=== PATIENT | male | born 1940 | race Caucasian/White ===

== ENCOUNTER 2016-05-15 12:13 | Observation (INO) | payer BC, OTHER ==
[~2016-05-15] VITALS: Ht 167.6 cm; Wt 74.5 kg
[2016-05-15] VITALS (8 sets, daily range): BP systolic 135–155; BP diastolic 58–69; PULSE 45–57; TEMP 36.6–36.9; O2SAT 93–96; BMI 26.5
[~2016-05-15 12:13] MED LIST: AMLO-114 PO; ASPI81TA28 PO; ATEN-173 PO; CHOL100010 PO; CLOP1TAB15 PO; GLIP-197 PO; HYDR25TA4 PO; LOSA100T65 PO; NRN600 PO; ROPI2TAB6 PO; SIMV20TA2 PO
[2016-05-15] MEDS ORDERED: SODIUM CHLORIDE 0.9% 500ML 500 ML IV STA (13:05)
[2016-05-15] MEDS ORDERED: SODIUM CHLORIDE 0.9% 1000ML 1,000 ML IV STA (13:05)
--- NOTE | 2016-05-15 13:07 | EMERGENCY ROOM VISIT NOTE ---
History Report prepared by Luis: Ricardo Cotton Under the Supervision of: Dr. Avril Marroquin M.D. First contact with patient: 12:44 Chief Complaint: DIZZY Stated Complaint: COLD, DIZZY Nursing Triage Summary: Dizzy x one week, hallucinating 2-3 days now per daughter. States gets a headache off and on. Denies injury/fall. History of Present Illness The patient is a 75 year old male who presents to the Emergency Room with complaints of recurrent visual hallucinations for the past 2-3 days. The patient cannot recall specifically what he has been seeing. His family notes that he has been reaching out and trying to grab objects that are not really there. The patient has had cough and cold symptoms for one week. He has also been experiencing intermittent dizziness, nausea, and frontal headaches this week. He denies blurry vision, chest pain, vomiting. He has been having regular bowel movements and has not had any significant weight loss. He has not been drinking much water. He has not started any new medications. As per his sister, the patient's stayed home because she is not feeling well. She also notes that the patient has appeared to have a lot less energy than baseline.He has a history of neuropathy and hypertension. Denies any history of cancer. The patient has never seen a psychiatrist. He does not drink very much alcohol. The patient uses chewing tobacco. The patient follows up with Dr. Malik, who he hasn't seen in the past six months. Source of History: patient, family Onset: 2-3 days Position: other (visual) Quality: other (hallucinations) Timing: other (recurrent) Associated Symptoms: + headache, + nausea, No chest pain, No vomiting Review of Systems See HPI for pertinent positives & negatives. A total of 10 systems reviewed and were otherwise negative. Past Medical & Surgical Medical Problems: (1) Aortic stenosis (2) CAD (coronary artery disease) (3) CKD (chronic kidney disease), stage IV (4) DM type 2 (diabetes mellitus, type 2) (5) Dyslipidemia (6) GERD (gastroesophageal reflux disease) (7) HTN (hypertension) Surgical Problems: (1) History of back surgery (2) History of carotid endarterectomy (3) History of cholecystectomy (4) History of inguinal hernia repair (5) History of rotator cuff surgery (6) History of tonsillectomy and adenoidectomy Family History No pertinent family history Social History Smoking Status: Former Smoker Marital Status: Housing Status: lives with family Current/Historical Medications Scheduled Allopurinol (Zyloprim), 1 TAB PO DAILY Amlodipine (Norvasc), 10 MG PO QAM Amoxicillin & Pot Clavulanate (Augmentin 875-125 mg), 875 MG PO BID Aspirin (Aspirin Ec), 81 MG PO QAM Cholecalciferol (Vitamin D), 1,000 INTER.UNIT PO DAILY Clopidogrel (Plavix), 75 MG PO QAM Fluticasone Propionate (Nasal) (Flonase Allergy Relief), 2 PUFFS INTNAS BID Gabapentin (Gabapentin), 2 TABS PO TID Glipizide (Glipizide Er), 5 MG PO QAM Hydrochlorothiazide (Hctz), 12.5 MG PO QD@08 Isosorbide Mononitrate (Isosorbide Mononitrate ER), 60 MG PO QAM Lactobacillus Acidophilus (Floranex), 1 TAB PO TID Losartan Potassium (Cozaar), 100 MG PO QAM Omeprazole (Omeprazole), 1 TAB PO DAILY Ropinirole (Requip), 2 MG PO HS Simvastatin (Zocor), 20 MG PO QAM Scheduled PRN Oxycodone Ir (Roxicodone Ir), 5 MG PO Q6H PRN for Pain Allergies Coded Allergies: No Known Allergies (Unverified , 05/15/16) Physical Exam Vital Signs Date Time Temp Pulse Resp B/P Pulse Ox O2 Delivery O2 Flow Rate FiO2 05/15/16 14:18 44 18 171/64 96 Room Air 05/15/16 13:37 41 16 140/64 97 Room Air 05/15/16 12:51 47 05/15/16 12:29 36.2 53 18 115/75 94 Room Air Physical Exam Vital signs reviewed. General: Well-appearing male, in no significant distress. HEENT: No scleral icterus, PERRLA, neck supple. Atraumatic. Cardiovascular: Regular rate and rhythm, no extra sounds. Pulmonary: Clear to auscultation bilaterally, normal work of breathing. Abdomen: Soft, nontender, nondistended, positive bowel sounds. Musculoskeletal: Atraumatic, no peripheral edema. Neurologic: Patient awake alert and oriented x 3, full strength in all 4 extremities. Cranial nerves 2 through 12 grossly intact. Skin: Warm, dry, no rash Medical Decision & Procedures ER Provider Diagnostic Interpretation: X-ray results as stated below per my interpretation and radiologist interpretation. Other radiology results as stated below per my review and radiologist interpretation: CHEST ONE VIEW PORTABLE CLINICAL HISTORY: Acute change in mental status. Hallucinations. COMPARISON STUDY: 12/23/2013 FINDINGS: There are postsurgical changes of a midline sternotomy. The cardiac and mediastinal contours remain stable. There is no failure. There is no focal pulmonary consolidation. There are no pleural effusions.[ IMPRESSION: No active disease in the chest. Electronically signed by: Asif Lu M.D. 05/15/2016 1:30 PM Dictated Date/Time: 05/15/2016 1:[address] SCAN OF THE BRAIN WITHOUT IV CONTRAST CLINICAL HISTORY: Change in mental status. Hallucinations. COMPARISON STUDY: No priors. TECHNIQUE: Unenhanced axial CT scan of the brain is performed from the vertex to the skull base. CT DOSE: 614.27 mGy.cm FINDINGS: Brain parenchyma: There are age-related involutional changes noting moderate patchy subcortical and periventricular microangiopathic change. There is no hemorrhage, mass effect, or evidence of acute territorial ischemia by CT criteria. Maxwell-white matter is preserved. No extra-axial fluid collection is seen. Ventricles, sulci, cisterns: Prominent secondary to involutional change. Intracranial vasculature: There is atherosclerotic calcification of the cavernous carotid and vertebral arteries. Calvarium: Unremarkable. Sinuses and mastoids: There is moderate mucosal thickening with large air-fluid levels in the maxillary antra. Moderate mucosal thickening is also seen throughout the ethmoid sinuses and in the left sphenoid sinus. Mild mucosal thickening is present within the frontal and right sphenoid sinuses. The mastoid air cells are well pneumatized. Orbits: The bony orbits are grossly intact. IMPRESSION: 1. There is no hemorrhage, mass effect, or evidence of acute territorial ischemia by CT criteria. 2. Pansinusitis as above. Electronically signed by: Jose Prieto M.D. 05/15/2016 2:17 PM Dictated Date/Time: 05/15/2016 2:15 PM Laboratory Results 05/15/16 13:45 Red Blood Count 4.53, Mean Corpuscular Volume 87.0, Mean Corpuscular Hemoglobin 29.1, Mean Corpuscular Hemoglobin Concent 33.5, Mean Platelet Volume 10.0, Neutrophils (%) (Auto) 64.3, Lymphocytes (%) (Auto) 23.9, Monocytes (%) (Auto) 8.4, Eosinophils (%) (Auto) 2.4, Basophils (%) (Auto) 0.5, Neutrophils # (Auto) 4.84, Lymphocytes # (Auto) 1.80, Monocytes # (Auto) 0.63, Eosinophils # (Auto) 0.18, Basophils # (Auto) 0.04 05/15/16 13:45 Test 05/15/16 13:06 05/15/16 13:45 Urine Color YELLOW Urine Appearance CLEAR (CLEAR) Urine pH 6.0 (4.5-7.5) Urine Specific [place] 1.007 (1.000-1.030) Urine Protein TRACE (NEG) Urine Glucose (UA) NEG (NEG) Urine Ketones NEG (NEG) Urine Occult Blood NEG (NEG) Urine Nitrite NEG (NEG) Urine Bilirubin NEG (NEG) Urine Urobilinogen NEG (NEG) Urine Leukocyte Esterase NEG (NEG) Urine WBC (Auto) 0 /hpf (0-5) Urine RBC (Auto) 0-4 /hpf (0-4) Urine Hyaline Casts (Auto) 0 /lpf (0-5) Urine Epithelial Cells (Auto) 0-5 /lpf (0-5) Urine Bacteria (Auto) NEG (NEG) White Blood Count 7.53 K/uL (4.8-10.8) Red Blood Count 4.53 M/uL (4.7-6.1) Hemoglobin 13.2 g/dL (14.0-18.0) Hematocrit 39.4 % (42-52) Mean Corpuscular Volume 87.0 fL (80-100) Mean Corpuscular Hemoglobin 29.1 pg (25-34) Mean Corpuscular Hemoglobin Concent 33.5 g/dl (32-36) Platelet Count 188 K/uL (130-400) Mean Platelet Volume 10.0 fL (7.4-10.4) Neutrophils (%) (Auto) 64.3 % Lymphocytes (%) (Auto) 23.9 % Monocytes (%) (Auto) 8.4 % Eosinophils (%) (Auto) 2.4 % Basophils (%) (Auto) 0.5 % Neutrophils # (Auto) 4.84 K/uL (1.4-6.5) Lymphocytes # (Auto) 1.80 K/uL (1.2-3.4) Monocytes # (Auto) 0.63 K/uL (0.11-0.59) Eosinophils # (Auto) 0.18 K/uL (0-0.5) Basophils # (Auto) 0.04 K/uL (0-0.2) RDW Standard Deviation 43.8 fL (36.4-46.3) RDW Coefficient of Variation 13.8 % (11.5-14.5) Immature Granulocyte % (Auto) 0.5 % Immature Granulocyte # (Auto) 0.04 K/uL (0.00-0.02) Anion Gap 10.0 mmol/L (3-11) Est Creatinine Clear Calc Drug Dose 25.0 ml/min Estimated GFR () 31.0 Estimated GFR (Non- 26.8 BUN/Creatinine Ratio 19.1 (10-20) Calcium Level 9.1 mg/dl (8.5-10.1) Magnesium Level 2.1 mg/dl (1.8-2.4) Total Bilirubin 0.5 mg/dl (0.2-1) Direct Bilirubin < 0.1 mg/dl (0-0.2) Aspartate Amino Transf (AST/SGOT) 16 U/L (15-37) Alanine Aminotransferase (ALT/SGPT) 21 U/L (12-78) Alkaline Phosphatase 83 U/L (45-117) Ammonia 22.0 umol/L (11-32) Total Protein 7.0 gm/dl (6.4-8.2) Albumin 3.5 gm/dl (3.4-5.0) Thyroid Stimulating Hormone (TSH) 0.276 uIu/ml (0.300-4.500) Free Thyroxine 1.06 ng/dl (0.80-1.60) Free Triiodothyronine 2.64 pg/ml (2.30-4.20) Laboratory results per my review. Medications Administered Medications (Trade) Dose Ordered Sig/Gato Route Start Time Stop Time Status Last Admin Dose Admin Sodium Chloride 500 ml @ 999 mls/hr Q31M STAT IV 05/15/16 13:05 05/15/16 13:35 DC 05/15/16 14:01 999 MLS/HR Sodium Chloride (Nss 1000ml) 1,000 ml @ 125 mls/hr Q8H STAT IV 05/15/16 13:05 05/15/16 16:51 DC 05/15/16 14:02 125 MLS/HR Piperacillin Sod/ Tazobactam Sod (Zosyn Iv) 4.5 gm NOW STAT IV 05/15/16 14:40 05/15/16 14:42 DC 05/15/16 14:54 4.5 GM ECG Indication: altered mental status Rate (beats per minute): 44 Rhythm: sinus rhythm Findings: 1st degree AV block, RBBB, no acute ischemic change, no ectopy ED Course 1258: Past medical records reviewed. The patient was evaluated in room A10. A complete history and physical examination was performed. 1305: NSS 1000 ml @ 125 mls/hr, NSS 500 ml @ 999 mls/hr. 1440: Zosyn 4.5 gm IV. 1440: Discussed the case with Jolie Mares PA-C, [facility]. The patient will be evaluated. Medical Decision Differential diagnosis: Etiologies such as metabolic, infection, hypoglycemia, electrolyte abnormalities , cardiac sources, intracerebral event, toxicologic, neurologic, as well as others were entertained. This pt was evaluated and appeared to be in no distress. IV access was obtained and lab work was drawn. Pt was hydrated with NSS. CT scan head reveals pansinusitis, no IC abnl. Pt was medicated with IV Zosyn. CXR is negative. Lab work reveals a normal WBC and pt is afebrile. Creat is 2.3. I do not believe the pt is suffering from meningitis. Pt will be evaluated by the hospitalist for further managment. Pt and family are aware of the plan and agree. Consults Time Called: 1430 Consulting Physician: Jolie Mares PA-C, [facility]. Returned Call: [phone]: Discussed the case with Jolie Mares PA-C, [facility]. The patient will be evaluated. Impression Primary Impression: Sinusitis Additional Impression: Hallucinations Scribe Attestation The scribe's documentation has been prepared under my direction and personally reviewed by me in its entirety. I confirm that the note above accurately reflects all work, treatment, procedures, and medical decision making performed by me. Departure Information Dispostion Being Evaluated By Hospitalist Prescriptions Lactobacillus Acidophilus (Floranex) 1 Tab Tab 1 TAB PO TID, #21 TAB Prov: Jonny Arzola MD 05/18/16 Hydrochlorothiazide (HCTZ) 12.5 Mg Cap 12.5 MG PO QD@08, #30 TAB Prov: Jonny Arzola MD 05/18/16 Fluticasone Propionate (Nasal) (Flonase Allergy Relief) 50 Mcg/Act Spr 2 PUFFS INTNAS BID, #1 Prov: Jonny Arzola MD 05/18/16 Amoxicillin & Pot Clavulanate (Augmentin 875-125 mg) 1 Tab Tab 875 MG PO BID, #14 TAB Prov: Jonny Arzola MD 05/18/16 Isosorbide Mononitrate (Isosorbide Mononitrate ER) 60 Mg Tab 60 MG PO QAM, #90 TAB Prov: Jonny Arzola MD 05/18/16 Referrals Angel Gonzalez M.D. (PCP) Patient Instructions My [facility] Problem Qualifiers Primary Impression: Sinusitis Sinusitis location: pansinusitis Chronicity: acute Recurrence: not specified as recurrent Qualified Codes: J01.40 - Acute pansinusitis, unspecified
[2016-05-15] MEDS ORDERED: CHOL100010 PO (13:28)
--- NOTE | 2016-05-15 13:31 | DIAGNOSTIC IMAGING REPORT ---
CHEST ONE VIEW PORTABLE CLINICAL HISTORY: Acute change in mental status. Hallucinations. COMPARISON STUDY: 12/23/2013 FINDINGS: There are postsurgical changes of a midline sternotomy. The cardiac and mediastinal contours remain stable. There is no failure. There is no focal pulmonary consolidation. There are no pleural effusions.[ IMPRESSION: No active disease in the chest. Electronically signed by: Asif Lu M.D. 05/15/2016 1:30 PM Dictated Date/Time: 05/15/2016 1:29 PM
[2016-05-15 14:01] LABS: BASO % 0.5 %; BASO ABS # 0.04 K/uL (0-0.2); COMPLETE YES; EOS % 2.4 %; HEMATOCRIT 39.4 % (42-52); IG% 0.5 %; LYMPH % 23.9 %; MEAN CORPUSCULAR HEMOGLOBIN 29.1 pg (25-34); MEAN CORPUSCULAR HGB CONC 33.5 g/dl (32-36); MONO % 8.4 %; NEUT % 64.3 %; PLATELET COUNT 188 K/uL (130-400); RED BLOOD COUNT 4.53 M/uL (4.7-6.1); WHITE BLOOD COUNT 7.53 K/uL (4.8-10.8)
--- NOTE | 2016-05-15 14:18 | DIAGNOSTIC IMAGING REPORT ---
CT SCAN OF THE BRAIN WITHOUT IV CONTRAST CLINICAL HISTORY: Change in mental status. Hallucinations. COMPARISON STUDY: No priors. TECHNIQUE: Unenhanced axial CT scan of the brain is performed from the vertex to the skull base. CT DOSE: 614.27 mGy.cm FINDINGS: Brain parenchyma: There are age-related involutional changes noting moderate patchy subcortical and periventricular microangiopathic change. There is no hemorrhage, mass effect, or evidence of acute territorial ischemia by CT criteria. Maxwell-white matter is preserved. No extra-axial fluid collection is seen. Ventricles, sulci, cisterns: Prominent secondary to involutional change. Intracranial vasculature: There is atherosclerotic calcification of the cavernous carotid and vertebral arteries. Calvarium: Unremarkable. Sinuses and mastoids: There is moderate mucosal thickening with large air-fluid levels in the maxillary antra. Moderate mucosal thickening is also seen throughout the ethmoid sinuses and in the left sphenoid sinus. Mild mucosal thickening is present within the frontal and right sphenoid sinuses. The mastoid air cells are well pneumatized. Orbits: The bony orbits are grossly intact. IMPRESSION: 1. There is no hemorrhage, mass effect, or evidence of acute territorial ischemia by CT criteria. 2. Pansinusitis as above. Electronically signed by: Jose Prieto M.D. 05/15/2016 2:17 PM Dictated Date/Time: 05/15/2016 2:15 PM
[2016-05-15 14:24] LABS: ALT/SGPT 21 U/L (12-78); AST/SGOT 16 U/L (15-37); BLOOD UREA NITROGEN 44 mg/dl (7-18); BUN/CREATININE RATIO 19.1 (10-20); CALCIUM 9.1 mg/dl (8.5-10.1); CARBON DIOXIDE 23 mmol/L (21-32); CHLORIDE 108 mmol/L (98-107); GLUCOSE 69 mg/dl (70-99); MAGNESIUM 2.1 mg/dl (1.8-2.4); POTASSIUM 4.5 mmol/L (3.5-5.1); SODIUM 141 mmol/L (136-145)
[2016-05-15 14:33] LABS: ALKALINE PHOSPHATASE 83 U/L (45-117); THYROID STIMULATING HORMONE 0.276 uIu/ml (0.300-4.500)
[2016-05-15] MEDS ORDERED: PIPERACILLIN/TAZOBACTAM 4.5 GM/100ML D5W IV STA (14:40)
[2016-05-15 15:37] LABS: URINE APPEARANCE CLEAR (CLEAR); URINE BILIRUBIN NEG (NEG); URINE COLOR YELLOW; URINE EPITHELIAL CELL AUTO 0-5 /lpf (0-5); URINE NITRITE NEG (NEG); URINE SPECIFIC GRAVITY 1.007 (1.000-1.030); UROBILINOGEN NEG (NEG); ZZUR CULT IF INDIC CLEAN CATCH NO
[2016-05-15 15:39] LABS: MANUAL MICROSCOPIC REQUIRED? NO; REVIEW REQ? NO
[2016-05-15] MEDS ORDERED: ONDANSETRON INJ 2 MG/ML 2 ML VIAL IV PRN (15:45)
[2016-05-15] MEDS ORDERED: ACETAMINOPHEN 325 MG TAB PO PRN (15:45)
[2016-05-15] MEDS ORDERED: OMEP20TA PO (15:56)
[2016-05-15] MEDS ORDERED: OXYC1TAB3 PO (15:56)
[2016-05-15] MEDS ORDERED: ALLO100T PO (15:56)
[2016-05-15] MEDS: SODIUM CHLORIDE 0.9% 1000ML 1,000 ML IV SCH (17:52)
--- NOTE | 2016-05-15 18:00 | History and Physical ---
History & Physical Date & Time of Service: May 15, 2016 at 17:22 Chief Complaint: Altered Mental Status Primary Care Physician: Angel Gonzalez M.D. History of Present Illness 75 year old male who presents to the ER with reports of altered mental status and lethargy. Patient reports he started getting sick about one week ago with a persistent productive cough. Over the past two days patient has been lethargic and having episodes of visual and tactile hallucinations. He also reports episodes of dizziness. He denies lightheadedness or syncopal events. He denies fever and chills. No chest pain. He reports chronic exertional shortness of breath which is unchanged. He has had a poor appetite but denies abdominal pain , nausea, vomiting, or diarrhea. He denies urinary symptoms. Of note, patient takes glipizide and reports he does not check his blood sugars. He reports that despite a poor appetite the past couple of days, he has continued to take his glipizide and all other medicines. Patient is currently at his baseline mental status. In the ER, patient's glucose is 69. Head CT is showing pansinusitis. He is also found to be bradycardic in the 40s-50s (prior records show HR in the 50s ). He is afebrile with normal WBC. He was given IVF and IV Zosyn. Past Medical/Surgical History Medical Problems: (1) Aortic stenosis Status: Chronic (2) CAD (coronary artery disease) Permanent Comment: CABG x 4 Status: Chronic (3) CKD (chronic kidney disease), stage IV Status: Chronic (4) DM type 2 (diabetes mellitus, type 2) Status: Chronic (5) Dyslipidemia Status: Chronic (6) GERD (gastroesophageal reflux disease) Status: Chronic (7) HTN (hypertension) Status: Chronic (8) PAD (peripheral artery disease) Status: Chronic Surgical Problems: (1) History of back surgery Status: Chronic (2) History of carotid endarterectomy Permanent Comment: right Status: Chronic (3) History of cholecystectomy Status: Chronic (4) History of inguinal hernia repair Status: Chronic (5) History of rotator cuff surgery Status: Chronic (6) History of tonsillectomy and adenoidectomy Status: Chronic Social History Smoking Status: Former Smoker Alcohol Use: occasionally Immunizations History of Influenza Vaccine: Yes Influenza Vaccine Date: Mar 27, 2016 History of Tetanus Vaccine?: Yes Tetanus Immunization Date: Sep 17, 2007 History of Pneumococcal: Yes Pneumococcal Date: Jun 24, 2015 Allergies Coded Allergies: No Known Allergies (Unverified , 05/15/16) Home Medications Scheduled Allopurinol (Zyloprim), 1 TAB PO DAILY Amlodipine (Norvasc), 10 MG PO QAM Aspirin (Aspirin Ec), 81 MG PO QAM Atenolol (Tenormin), 25 MG PO QAM Cholecalciferol (Vitamin D), 1,000 INTER.UNIT PO DAILY Clopidogrel (Plavix), 75 MG PO QAM Gabapentin (Gabapentin), 2 TABS PO TID Glipizide (Glipizide Er), 5 MG PO QAM Hydrochlorothiazide (Hctz), 25 MG PO QAM Losartan Potassium (Cozaar), 100 MG PO QAM Omeprazole (Omeprazole), 1 TAB PO DAILY Ropinirole (Requip), 2 MG PO HS Simvastatin (Zocor), 20 MG PO QAM Scheduled PRN Oxycodone Ir (Roxicodone Ir), 5 MG PO Q6H PRN for Pain Review of Systems 10 point review of systems was completed with the pertinent positives and negatives noted per the HPI Physical Exam Vital Signs Date Time Temp Pulse Resp B/P Pulse Ox O2 Delivery O2 Flow Rate FiO2 05/15/16 16:14 44 18 158/50 96 Room Air 05/15/16 14:18 44 18 171/64 96 Room Air 05/15/16 13:37 41 16 140/64 97 Room Air 05/15/16 12:51 47 05/15/16 12:29 36.2 53 18 115/75 94 Room Air General Appearance: no apparent distress Head: normocephalic Eyes: normal inspection ENT: hearing grossly normal Neck: supple, no JVD Respiratory/Chest: no respiratory distress, + rhonchi (anterior lung mccann ) Cardiovascular: no edema, + bradycardia (regular rhythm) Abdomen/GI: normal bowel sounds, non tender, soft Extremities/Musculoskelatal: normal inspection, no calf tenderness Neurologic/Psych: no motor/sensory deficits, alert, normal mood/affect, oriented x 3 Skin: normal color, warm/dry Diagnostics Laboratory Results Results Past 24 Hours Test 05/15/16 13:06 05/15/16 13:45 05/15/16 16:53 05/15/16 17:08 Range/Units Urine Color YELLOW Urine Appearance CLEAR CLEAR Urine pH 6.0 4.5-7.5 Urine Specific [place] 1.007 1.000-1.030 Urine Protein TRACE NEG Urine Glucose (UA) NEG NEG Urine Ketones NEG NEG Urine Occult Blood NEG NEG Urine Nitrite NEG NEG Urine Bilirubin NEG NEG Urine Urobilinogen NEG NEG Urine Leukocyte Esterase NEG NEG Urine WBC (Auto) 0 0-5 /hpf Urine RBC (Auto) 0-4 0-4 /hpf Urine Hyaline Casts (Auto) 0 0-5 /lpf Urine Epithelial Cells (Auto) 0-5 0-5 /lpf Urine Bacteria (Auto) NEG NEG White Blood Count 7.53 4.8-10.8 K/uL Red Blood Count 4.53 4.7-6.1 M/uL Hemoglobin 13.2 14.0-18.0 g/dL Hematocrit 39.4 42-52 % Mean Corpuscular Volume 87.0 80-100 fL Mean Corpuscular Hemoglobin 29.1 25-34 pg Mean Corpuscular Hemoglobin Concent 33.5 32-36 g/dl Platelet Count 188 130-400 K/uL Mean Platelet Volume 10.0 7.4-10.4 fL Neutrophils (%) (Auto) 64.3 % Lymphocytes (%) (Auto) 23.9 % Monocytes (%) (Auto) 8.4 % Eosinophils (%) (Auto) 2.4 % Basophils (%) (Auto) 0.5 % Neutrophils # (Auto) 4.84 1.4-6.5 K/uL Lymphocytes # (Auto) 1.80 1.2-3.4 K/uL Monocytes # (Auto) 0.63 0.11-0.59 K/uL Eosinophils # (Auto) 0.18 0-0.5 K/uL Basophils # (Auto) 0.04 0-0.2 K/uL RDW Standard Deviation 43.8 36.4-46.3 fL RDW Coefficient of Variation 13.8 11.5-14.5 % Immature Granulocyte % (Auto) 0.5 % Immature Granulocyte # (Auto) 0.04 0.00-0.02 K/uL Sodium Level 141 136-145 mmol/L Potassium Level 4.5 3.5-5.1 mmol/L Chloride Level 108 98-107 mmol/L Carbon Dioxide Level 23 21-32 mmol/L Anion Gap 10.0 3-11 mmol/L Blood Urea Nitrogen 44 7-18 mg/dl Creatinine 2.30 0.60-1.40 mg/dl Est Creatinine Clear Calc Drug Dose 25.0 ml/min Estimated GFR () 31.0 Estimated GFR (Non- 26.8 BUN/Creatinine Ratio 19.1 10-20 Random Glucose 69 70-99 mg/dl Calcium Level 9.1 8.5-10.1 mg/dl Magnesium Level 2.1 1.8-2.4 mg/dl Total Bilirubin 0.5 0.2-1 mg/dl Direct Bilirubin < 0.1 0-0.2 mg/dl Aspartate Amino Transf (AST/SGOT) 16 15-37 U/L Alanine Aminotransferase (ALT/SGPT) 21 12-78 U/L Alkaline Phosphatase 83 45-117 U/L Ammonia 22.0 11-32 umol/L Total Protein 7.0 6.4-8.2 gm/dl Albumin 3.5 3.4-5.0 gm/dl Thyroid Stimulating Hormone (TSH) 0.276 0.300-4.500 uIu/ml Free Thyroxine 1.06 0.80-1.60 ng/dl Free Triiodothyronine 2.64 2.30-4.20 pg/ml Bedside Glucose 86 70-99 mg/dl Diagnostic Radiology HEAD CT IMPRESSION: 1. There is no hemorrhage, mass effect, or evidence of acute territorial ischemia by CT criteria. 2. Pansinusitis as above. CXR IMPRESSION: No active disease in the chest. Impression Assessment and Plan ALTERED MENTAL STATUS, LETHARGY, HALLUCINATIONS - admit to tele - patient presenting with one week of productive cough and lethargy/ hallucinations over the past two days - check influenza swab - gentle IVF - patient found to have pansinusitis on CT scan - glucose noted to be 69 on labs - patient reports he does not check his blood sugars and has continued to take glipizide despite poor appetite the past 2 days - suspect patient had more severe hypoglycemia at home and this combined with infection (sinusitis) are likely the cause of patient's symptoms - could consider symptomatic bradycardia - HR noted to be in the 40s-50s (per prior records HR has run in the 50s), BP stable - hold atenolol and monitor in tele - patient's mental status has returned to baseline - if patient's symptoms continue despite treatment for sinusitis and hypoglycemia, could consider MRI however suspicion for CVA is low - patient has no focal findings on exam and he is already on dual antiplatelet therapy and statin SINUSITIS - s/p Zosyn in ED - do not suspect sepsis - afebrile, no leukocytosis - will continue with Doxy - consider f/u CXR in AM to look for flourishing PNA after hydration with IVF BRADYCARDIA - noted above DM - hgb a1c 6.4 06/2015, will update - hold glipizide, check BSG - monitor for hypoglycemia as above CAD S/P CABG - no reports of chest pain - continue ASA, Plavix, statin - holding beta kiersten due to bradycardia HTN - BP controlled, continue amlodipine and losartan - holding atenolol as above, hold HCTZ while giving IVF PAD - continue ASA, Plavix CKD STAGE IV - baseline creat runs in the low 2's - noted to be 2.3 today DVT PROPHYLAXIS - SQ Heparin DISPO - The patient will be placed as observation status for now until further work up is complete. ATTENDING ADDENDUM Record reviewed. Patient interviewed and examined. Care coordinated with MARLEY Moser. Please refer to her documentation for patient's history above. I agree with the assessment and plan as stated with the following exceptions. 75 yo M with and h/o CAD s/p CABG with CKD IV, not on HD. When I was interviewing Mr. Chery he reported to me some left anterior chest pain that occurred when he arrived in his hospital room (1-2 hours after dinner) and lasted about 5 minutes, then spontaneously resolved. He states that he gets this pain about once weekly, but this can vary. There are no obvious triggers, and he does not take nitro or other med; it resolves spontaneously. He states that his Customer Servicer knows about this, however, he hasn't seen anyone since October 2015 when he was granted preoperative clearance because he denied any chest pain at that time. His EKG today reveals SB with RBBB and no ST changes. Will trend cardiac enzymes overnight and consult Cardiology to see him in the morning. The patient was instructed to let the nursing staff know of any further pain episodes, and he verbalized understanding with intent to comply. His flu returned negative. I did hear some rales at the lung bases since IVFs were started, so will also repeat CXR in am. There are no crackles, however, and I agree with IVF administration in the short-term as he is still somewhat nautious with a low appetite. He also mentioned to me that he has been taking Corecedin OTC for the past week for his nasal symptoms (new since being treated for ear infection in Apr- with abx), has not been eating well for the past two days and still taking his glipizide. It is my impression that his symptoms today were consistent with low blood sugar in the setting of a sinus infection. Additionally, he may have some symptomatic bradycardia contributing with reports of dizziness so the atenolol has been held; appreciate Cardiology recs. Otherwise agree with the plan above. Magdalene Min, DO (Hospitalist) VTE Prophylaxis VTE Risk Assessment Done? Y/N: Yes Risk Level: Moderate
[2016-05-15] MEDS ORDERED: IV FLUIDS COMPLETED PRN (19:15)
[2016-05-15 20:06] LABS: INFLUENZA A PCR Neg for Influ A (NEG); INFLUENZA B PCR Neg for Influ B (NEG)
[2016-05-15] MEDS: HEPARIN SOD 5000 UNIT/0.5 ML CARP SQ SCH (21:00)
[2016-05-15] MEDS: ROPINIROLE HCL 1 MG TAB PO SCH (21:22)
[2016-05-15] MEDS: GABAPENTIN 600 MG TAB PO SCH (21:23)
[2016-05-15] MEDS: DOXYCYCLINE IV 100 MG in DEXTROSE 5% 100ML 100 ML IV SCH (21:27)
[2016-05-16 04:00] VITALS: BP 134/70; PULSE 52; TEMP 36.7; O2SAT 94
[2016-05-16] MEDS: SODIUM CHLORIDE 0.9% 1000ML 1,000 ML IV SCH ×2 (04:12→17:23)
[2016-05-16 06:22] LABS: ESTIMATED AVERAGE GLUCOSE 128 mg/dl; HA1C FLAG Normal (Normal)
[2016-05-16] MEDS: DOXYCYCLINE IV 100 MG in DEXTROSE 5% 100ML 100 ML IV SCH (07:28)
[2016-05-16] MEDS: ASPIRIN 81 MG ECTAB PO SCH (07:31)
[2016-05-16] MEDS: CLOPIDOGREL BISULFATE 75 MG TAB PO SCH (07:31)
[2016-05-16] MEDS: LOSARTAN POTASSIUM 50 MG TAB PO SCH (07:31)
[2016-05-16] MEDS: PANTOprazole SOD 40 MG TAB PO SCH (07:31)
[2016-05-16] MEDS: CHOLECALCIFEROL 1000 INTER.UNIT TAB PO SCH (07:32)
[2016-05-16] MEDS: GABAPENTIN 600 MG TAB PO SCH ×2 (07:32→14:23)
[2016-05-16] MEDS: ALLOPURINOL 100 MG TAB PO SCH (07:32)
[2016-05-16] MEDS: AMLODIPINE BESYLATE 5 MG TAB PO SCH (07:32)
[2016-05-16] MEDS: SIMVASTATIN 20 MG TAB PO SCH (07:32)
[2016-05-16] MEDS: HEPARIN SOD 5000 UNIT/0.5 ML CARP SQ SCH ×2 (07:33→19:43)
--- NOTE | 2016-05-16 07:46 | DIAGNOSTIC IMAGING REPORT ---
TWO VIEW CHEST CLINICAL HISTORY: Dyspnea. FINDINGS: PA and lateral chest radiographs are compared to study dated 05/15/2016. The PA view is degraded by patient rotation. The patient is status post midline sternotomy. The heart is enlarged and there is atherosclerotic calcification of the thoracic aorta. The pulmonary vasculature is noncongested. Chronic interstitial thickening is similar to previous. Minimal bibasilar atelectasis is observed. There is no airspace consolidation typical for pneumonia or pleural effusion. There is no pneumothorax. The skeletal structures are osteopenic. Degenerative change is noted throughout the thoracic spine. Surgical clips are seen in the upper abdomen. IMPRESSION: Mild cardiac enlargement with no active disease in the chest. Electronically signed by: Jose Prieto M.D. 05/16/2016 7:45 AM Dictated Date/Time: 05/16/2016 7:44 AM
[2016-05-16 08:00] VITALS: BP 148/63; PULSE 45; TEMP 36.7; O2SAT 94
[2016-05-16 08:33] LABS: HEMATOCRIT 38.6 % (42-52); MEAN CELL VOLUME 87.5 fL (80-100); MEAN CORPUSCULAR HEMOGLOBIN 29.9 pg (25-34); MEAN CORPUSCULAR HGB CONC 34.2 g/dl (32-36); MEAN PLATELET VOLUME 10.2 fL (7.4-10.4); PLATELET COUNT 201 K/uL (130-400); RED BLOOD COUNT 4.41 M/uL (4.7-6.1); WHITE BLOOD COUNT 7.13 K/uL (4.8-10.8)
[2016-05-16 08:59] LABS: BLOOD UREA NITROGEN 40 mg/dl (7-18); BUN/CREATININE RATIO 19.1 (10-20); CALCIUM 8.9 mg/dl (8.5-10.1); CARBON DIOXIDE 22 mmol/L (21-32); CHLORIDE 111 mmol/L (98-107); GLUCOSE 78 mg/dl (70-99); POTASSIUM 4.3 mmol/L (3.5-5.1); SODIUM 143 mmol/L (136-145)
[2016-05-16] MEDS ORDERED: HYDROCHLOROTHIAZIDE 25 MG TAB PO SCH (09:00)
--- NOTE | 2016-05-16 09:27 | CARDIOLOGY CONSULTATION ---
DATE OF CONSULTATION: 05/16/2016 REFERRING PHYSICIAN: [facility]. REASON FOR CONSULTATION: Mental status changes and bradycardia. HISTORY OF PRESENT ILLNESS: This is a 75-year-old male patient with a history of arteriosclerotic vascular disease and diabetes. He states that he was in his usual state of health up until approximately a week ago when he developed a cold. He has not been feeling well over several days and then approximately 2-3 days prior to admission he began to have hallucinations. He was admitted through the Emergency Department with mental status changes, felt possibly due to a combination of low blood glucose levels and evidence of pansinusitis on a CT of the brain. CT of the brain without contrast showed no acute cerebral changes that would explain his hallucinations and mental status changes. The patient was noted to be bradycardic and his atenolol has been held. He was started on IV antibiotics. His WBC count is not elevated and there is no left shift. In questioning the patient this morning, he feels better but he is still having hallucinations. He describes an event where he thought that he had a cup of coffee and he reached forward and tried to drink from the cup. He has no prior history of strokes or a mental health disorder. He did have a carotid endarterectomy in the past on the right. ALLERGIES: No known medical allergies. PAST MEDICAL HISTORY: As outlined in history of chief complaint, the patient is a diabetic. He is treated for hypertension, GERD and dyslipidemia. He also has chronic kidney disease which is stage IV and he is followed by nephrology. He is status post coronary artery bypass surgery many years ago at [facility]. He had a repeat cardiac catheterization in September of 2009 that revealed all his bypass grafts including the ROBLES to the LAD, saphenous vein graft to the diagonal, and saphenous vein graft to the obtuse marginal to be widely patent. He has an epigastric artery to the right coronary which was patent but had some obstruction due to hepatic artery stenosis, it was deemed medical management. He has done well from a cardiac standpoint since that cardiac catheterization. His last echocardiogram performed as an outpatient revealed overall preserved left ventricular systolic function with mild left ventricular hypertrophy and an estimated left ventricular ejection fraction between 55 and 59%. The patient's aortic valve was moderately calcified and there is moderate aortic valve stenosis present. SOCIAL HISTORY: The patient is a reformed smoker. He lives independently. FAMILY MEDICAL HISTORY: Noncontributory. REVIEW OF SYSTEMS: A 10-point review of systems is negative except for the history of chief complaint. PHYSICAL EXAMINATION: GENERAL: He is alert and oriented. VITAL SIGNS: Blood pressure is 150/60, pulse is regular at 48 beats per minute, he is afebrile. HEENT: He is normocephalic. Pupils are equal and reactive to light. Extraocular muscles are intact bilaterally. NECK: The neck veins are flat. Carotids have good upstrokes bilaterally without bruits. Thyroid is nonpalpable. RESPIRATORY: Breath sounds equal bilaterally and clear to auscultation. CARDIOVASCULAR: Heart has a regular rhythm. There is a systolic murmur along the left sternal border. GASTROINTESTINAL: Abdomen is soft and nontender without organomegaly. EXTREMITIES: Free of edema, digit clubbing, or cyanosis. NEUROLOGIC: Grossly intact. SKIN: Warm to touch. LYMPH NODES: Negative to palpation. LABORATORY DATA: WBC count is 7.5 with normal indices and normal white cell ratios. Creatinine is 2.3, BUN is 44. EKG reveals sinus bradycardia with a right bundle-branch block. IMPRESSION: 1. Mental status changes and hallucinations. 2. Possible hypoglycemia. 3. Sinusitis. 4. Ischemic heart disease. 5. Moderate aortic stenosis. RECOMMENDATIONS: If the patient has not had an echocardiogram this hospital admission, then I would recommend that we repeat one today. I would also recommend that we have neurology see him since he is now clinically stable but still having hallucinations. His CT without contrast was negative. He may benefit from having an MRI of the brain and of course a neurology evaluation. Thank you. MAGDI
[2016-05-16 11:17] VITALS: Ht 167.6 cm; Wt 74.5 kg
[2016-05-16 12:00] VITALS: BP 161/65; PULSE 45; TEMP 36.9
--- NOTE | 2016-05-16 14:36 | Neurology Consultation ---
Neurology Consultation Date of Consultation: May 16, 2016. Attending Physician: Jonny Arzola MD Primary Care Physician: Angel Gonzalez M.D. Reason for Consultation: hallucinations History of Present Illness Source: patient Anastacio is a 75 year old male who presented with MS change and lethargy. He states he was getting sick about one week ago with a persistent productive cough. He was lethargic and having episodes of visual and tactile hallucinations.He has chronic exertional shortness of breath which is unchanged. He has not been eating or drinking well since he started getting sick. Currently he denies abdominal pain, N,V,D, fever chills night sweats, headache, back or neck pain or stiffness. He takes glipizide and reports he does not check his blood sugars. He reports that despite a poor appetite the past couple of days, he has continued to take his glipizide and all other medicines. His glucose was 69 upon arrival to the ED. His CT imaging showing pansinusitis. He is also found to be bradycardic in the 40s-50s (prior records show HR in the 50s). He is afebrile with normal WBC. He was given IVF and IV Zosyn in the ED. He states currently he is not feeling any better and has been tired since this all started. He also states he did have a hallucination this am thought he had a cup of coffee but it wasn't there no other hallucinations Past Medical/Surgical History Medical Problems: (1) Gout Status: Acute (2) Hallucinations Status: Acute (3) Leg pain, right Status: Acute (4) Right inguinal hernia Status: Acute (5) Sinusitis Status: Acute Social History Alcohol Use: occasionally Housing Status: lives with family Allergies Coded Allergies: No Known Allergies (Unverified , 05/15/16) Current Inpatient Medications Current Inpatient Medications Medications (Trade) Dose Ordered Sig/Gato Route Start Time Stop Time Status Last Admin Dose Admin Heparin Sodium (Porcine) 5000 unit 5,000 unit Q12 SQ 05/15/16 21:00 06/14/16 20:59 05/16/16 07:33 5,000 UNIT Sodium Chloride (Nss 1000ml) 1,000 ml @ 80 mls/hr [id number] IV 05/15/16 15:42 06/14/16 15:41 05/16/16 04:12 80 MLS/HR Acetaminophen (Tylenol Tab) 650 mg Q4H PRN PO 05/15/16 15:45 06/14/16 15:44 05/15/16 21:20 650 MG Ondansetron HCl (Zofran Inj) 4 mg Q6H PRN IV 05/15/16 15:45 06/14/16 15:44 Allopurinol (Zyloprim Tab) 100 mg DAILY PO 05/16/16 09:00 06/15/16 08:59 05/16/16 07:32 100 MG Amlodipine Besylate (Norvasc Tab) 10 mg QAM PO 05/16/16 09:00 06/15/16 08:59 05/16/16 07:32 10 MG Aspirin (Ecotrin Tab) 81 mg QAM PO 05/16/16 09:00 06/15/16 08:59 05/16/16 07:31 81 MG Cholecalciferol (Vitamin D Tab) 1,000 inter.unit DAILY PO 05/16/16 09:00 06/15/16 08:59 05/16/16 07:32 1,000 INTER.UNIT Clopidogrel Bisulfate (plAVix TAB) 75 mg QAM PO 05/16/16 09:00 06/15/16 08:59 05/16/16 07:31 75 MG Gabapentin (Neurontin Tab) 1,200 mg TID PO 05/15/16 21:00 06/14/16 20:59 05/16/16 07:32 1,200 MG Losartan Potassium (coZAAR TAB) 100 mg QAM PO 05/16/16 09:00 06/15/16 08:59 05/16/16 07:31 100 MG Ropinirole HCl (Requip Tab) 2 mg HS PO 05/15/16 21:00 06/14/16 20:59 05/15/16 21:22 2 MG Simvastatin (Zocor Tab) 20 mg QAM PO 05/16/16 09:00 06/15/16 08:59 05/16/16 07:32 20 MG Pantoprazole Sodium 40 mg 40 mg QAM PO 05/16/16 09:00 06/15/16 08:59 05/16/16 07:31 40 MG Doxycycline Hyclate/Dextrose (Vibramycin IV/ D5 100ml) 110 ml @ 50 mls/hr BID IV 2/7/17 21:00 05/25/16 20:59 05/16/16 07:28 50 MLS/HR Miscellaneous (Iv Fluids Completed) 1 ea PRN PRN N/A 05/15/16 19:15 05/15/17 19:14 Physical Exam Vital Signs (Past 24 Hrs): Date Time Temp Pulse Resp B/P Pulse Ox O2 Delivery O2 Flow Rate FiO2 05/16/16 12:00 36.9 45 161/65 05/16/16 12:00 Room Air 05/16/16 08:04 Room Air 05/16/16 08:00 36.7 45 18 148/63 94 05/16/16 04:00 36.7 52 16 134/70 94 Room Air 05/16/16 04:00 Room Air 05/15/16 23:59 Room Air 05/15/16 23:28 55 147/62 05/15/16 23:24 47 145/62 05/15/16 23:22 36.8 51 20 135/69 93 Room Air 05/15/16 20:00 Room Air 05/15/16 19:46 57 143/58 05/15/16 19:43 46 142/65 05/15/16 19:41 36.6 45 22 155/63 96 Room Air 05/15/16 17:26 36.9 47 16 148/66 Room Air 05/15/16 16:14 44 18 158/50 96 Room Air Physical Exam: Constitutional: appearance nourished, sleeping but awakes easily to voice command Ears, Nose, Mouth and Throat: mucous membranes moist, no injection and skin normal, eyes normal Cardiovascular: normal S-1 and S-2 and regular rate and rhythm, sternal scar well healed Respiratory: course breath sounds Musculoskeletal: no peripheral edema and good distal pulses Skin: no stigmata of neurocutaneous disease noted and normal and intact Eyes: extraocular muscles intact (EOMI) and pupils equal, round and reactive to light (PERRL) NEUROLOGIC EXAMINATION: Mental status: Alert and interactive Oriented to full date and location Oriented to person, in [facility], he lives in [place] with , Stuart is president, can stick out tongue close eyes point to ceiling with right hand Speech fluent with no evidence of aphasia Cranial Nerves smile and eye brow raise symmetric, tongue midline Reflexes: Deep tendon reflexes were symmetrical and graded 2/5. Plantar responses were flexor. Sensory: intact to cool touch, vibration Coordination: finger to nose with no bi pass or tremor Gait/Stance: lying in bed able to reposition self without help Motor: Negative for pronator drift of out stretched arms with eyes closed. Strength: biceps triceps deltoids hand rn integrity 5/5 bilaterally, hip flex plantar flex ext bilaterally 5/5 Laboratory Results Past 24 Hours: 05/16/16 08:16 05/16/16 08:16 Test 05/15/16 17:45 05/16/16 08:16 05/16/16 11:06 Influenza Type A (RT-PCR) Neg for Influ A (NEG) Influenza Type B (RT-PCR) Neg for Influ B (NEG) Red Blood Count 4.41 M/uL (4.7-6.1) Mean Corpuscular Volume 87.5 fL (80-100) Mean Corpuscular Hemoglobin 29.9 pg (25-34) Mean Corpuscular Hemoglobin Concent 34.2 g/dl (32-36) RDW Standard Deviation 45.3 fL (36.4-46.3) RDW Coefficient of Variation 14.0 % (11.5-14.5) Mean Platelet Volume 10.2 fL (7.4-10.4) Anion Gap 10.0 mmol/L (3-11) Est Creatinine Clear Calc Drug Dose 27.4 ml/min Estimated GFR () 34.6 Estimated GFR (Non- 29.9 BUN/Creatinine Ratio 19.1 (10-20) Calcium Level 8.9 mg/dl (8.5-10.1) Troponin I < 0.015 ng/ml (0-0.045) Bedside Glucose 108 mg/dl (70-99) Imaging CT head- Brain parenchyma: There are age-related involutional changes noting moderate patchy subcortical and periventricular microangiopathic change. There is no hemorrhage, mass effect, or evidence of acute territorial ischemia by CT criteria. Maxwell-white matter is preserved. No extra-axial fluid collection is seen. ventricles, sulci, cisterns: Prominent secondary to involutional change. Intracranial vasculature: There is atherosclerotic calcification of the cavernous carotid and vertebral arteries. Calvarium: Unremarkable. Sinuses and mastoids: There is moderate mucosal thickening with large air-fluid levels in the maxillary antra. Moderate mucosal thickening is also seen throughout the ethmoid sinuses and in the left sphenoid sinus. Mild mucosal thickening is present within the frontal and right sphenoid sinuses. The mastoid air cells are well pneumatized. CXR - : Mild cardiac enlargement with no active disease in the chest. Impression 75 year old male UR illness x 1 week and hallucinations Plan 1. seems at baseline not disoriented 2. still heavy cough 3. electrolytes corrected 4. MRI without contrast ordered due to renal function to r/o stroke or other structural issues 5. EEG -r/o seizures 6. further recommendation to follow once imaging is completed I have seen and discussed above patient with Dr Andrew Webster, neurology Patient interviewed and examined and case an labs reviewed with Wendy Doll The cause for his low grade confusion and hallucinations is unclear may be multifactorial and is largely cleared but eeg is abnormal showing a pattern that would correlate with a primary generalized epilepsy or may be a phenotypic marker of a genetic predilection to seizures and the Mri shows not acute changes ( limited by lack of contrast due to renal issues ) He is on high doses of an aed now for pain ( neurontin ) and in fact in light of the renal disease the dose may be a bit too high At this poinFor now observe and t clinically the history is not consistent with a primary generalized seizure and would not rx additional aeds here unless we see an unequivocal event will check a neurontin level but result will be delayed For now would observe and if stble tomorrow he probably could go home as long as hi mental status remains stable Andrew Webster MD
[2016-05-16 15:52] VITALS: BP 131/60; PULSE 50; TEMP 36.7; O2SAT 97
--- NOTE | 2016-05-16 16:21 | DIAGNOSTIC IMAGING REPORT ---
Brain MRI WITHOUT CONTRAST HISTORY: Mental status change confusion and hallucinations TECHNIQUE: Multiplanar multisequence MRI of the brain was performed without the use of contrast. COMPARISON STUDY: None. FINDINGS: Diffusion-weighted images show no evidence for an acute ischemic process. Moderate cerebellar as well as cerebral atrophy. Moderate chronic small vessel change. Ventricular system is midline. Internal artery canals are symmetric. Significant mucosal thickening of the ethmoid and maxillary sinuses. IMPRESSION: 1. Atrophy. 2. Chronic small vessel change. 3. No acute ischemic process. 4. Considerable mucosal thickening of the maxillary and ethmoid sinuses with associated air-fluid levels. Electronically signed by: Narayan Romero M.D. 05/16/2016 4:20 PM Dictated Date/Time: 05/16/2016 4:17 PM
--- NOTE | 2016-05-16 17:43 | Progress Note ---
Internal Med Progress Note Date of Service: May 16, 2016. Provider Documentation: SUBJECTIVE: Patient is sitting in his bed in no apparent distress. Awake and tries to answer my questions well. C/o intermittent frontal headache. Denies any hallucinations today. OBJECTIVE: Vital Signs-as noted below Examination: General Appearance: Alert/Awake and is in no apparent distress Head: normocephalic Eyes: normal inspection ENT: hearing grossly normal, Some B/L Sinus tenderness. Neck: supple, Central trachea, no JVD Respiratory/Chest: no respiratory distress, B/L almost clear to auscultation. Cardiovascular: no edema, + bradycardia Abdomen/GI: normal bowel sounds, non tender, soft Extremities/Musculoskeletal: normal inspection, no calf tenderness Neurologic/Psych: no motor/sensory deficits, alert, normal mood/affect, oriented x 3 Skin: normal color, warm/dry Lab data as noted below. ASSESSMENT & PLAN: CT SCAN OF THE BRAIN WITHOUT IV CONTRAST FINDINGS: Brain parenchyma: There are age-related involutional changes noting moderate patchy subcortical and periventricular microangiopathic change. There is no hemorrhage, mass effect, or evidence of acute territorial ischemia by CT criteria. Maxwell-white matter is preserved. No extra-axial fluid collection is seen. Ventricles, sulci, cisterns: Prominent secondary to involutional change. Intracranial vasculature: There is atherosclerotic calcification of the cavernous carotid and vertebral arteries. Calvarium: Unremarkable. Sinuses and mastoids: There is moderate mucosal thickening with large air-fluid levels in the maxillary antra. Moderate mucosal thickening is also seen throughout the ethmoid sinuses and in the left sphenoid sinus. Mild mucosal thickening is present within the frontal and right sphenoid sinuses. The mastoid air cells are well pneumatized. Orbits: The bony orbits are grossly intact. IMPRESSION: 1. There is no hemorrhage, mass effect, or evidence of acute territorial ischemia by CT criteria. 2. Pansinusitis as above. ALTERED MENTAL STATUS, LETHARGY, HALLUCINATIONS: Clinically resolving now. Remains stable. Patient presenting with one week of productive cough and lethargy/ hallucinations over the past two days -Influenza screen is negative -Gentle IVF -Patient found to have pansinusitis on CT scan - glucose noted to be 69 on labs - patient reports he does not check his blood sugars and has continued to take glipizide despite poor appetite the past 2 days -Considering symptomatic bradycardia - HR noted to be in the 40s-50s (per prior records HR has run in the 50s), BP stable - hold atenolol and monitor in tele -He is already on dual antiplatelet therapy and statin Pansinusitis: s/p Zosyn in ED. Do not suspect sepsis - afebrile, no leukocytosis -Continue Doxycycline (day # 2) & Added Rocephin (day # 1). Bradycardia: HR is persistently in 40's. -Requested cardiology evaluation. -Troponin X 3 is normal Hypertension: BP controlled, continue amlodipine and losartan -Holding atenolol as above, hold HCTZ while giving IVF CAD S/P CABG: No acute cardiac symptoms. -Continue ASA, Plavix, statin -Holding beta kiersten due to bradycardia Diabetes Type II: HbA1c is 6.4 in june 2015. Needs to be repeated. -Holding glipizide, check BSG -Monitor for hypoglycemia as above History PAD: Stable. -Continue ASA, Plavix CKD Stage IV: Baseline creat runs in the low 2's -Continue monitoring GFR -Avoid any Nephrotoxin DVT Prophylaxis: SQ Heparin Disposition: Discharge once is medically stable. Vital Signs: Date Time Temp Pulse Resp B/P Pulse Ox O2 Delivery O2 Flow Rate FiO2 05/16/16 16:30 Room Air 05/16/16 15:52 36.7 50 18 131/60 97 Room Air 05/16/16 12:00 36.9 45 161/65 05/16/16 12:00 Room Air 05/16/16 08:04 Room Air 05/16/16 08:00 36.7 45 18 148/63 94 05/16/16 04:00 36.7 52 16 134/70 94 Room Air 05/16/16 04:00 Room Air 05/15/16 23:59 Room Air 05/15/16 23:28 55 147/62 05/15/16 23:24 47 145/62 05/15/16 23:22 36.8 51 20 135/69 93 Room Air 05/15/16 20:00 Room Air 05/15/16 19:46 57 143/58 05/15/16 19:43 46 142/65 05/15/16 19:41 36.6 45 22 155/63 96 Room Air Lab Results: Results Past 24 Hours Test 05/15/16 17:45 05/15/16 20:15 05/15/16 20:42 05/16/16 01:55 Range/Units Influenza Type A (RT-PCR) Neg for Influ A NEG Influenza Type B (RT-PCR) Neg for Influ B NEG Troponin I < 0.015 < 0.015 0-0.045 ng/ml Bedside Glucose 96 70-99 mg/dl Test 05/16/16 06:38 05/16/16 06:57 05/16/16 07:12 05/16/16 08:16 Range/Units Bedside Glucose 56 60 70 70-99 mg/dl White Blood Count 7.13 4.8-10.8 K/uL Red Blood Count 4.41 4.7-6.1 M/uL Hemoglobin 13.2 14.0-18.0 g/dL Hematocrit 38.6 42-52 % Mean Corpuscular Volume 87.5 80-100 fL Mean Corpuscular Hemoglobin 29.9 25-34 pg Mean Corpuscular Hemoglobin Concent 34.2 32-36 g/dl RDW Standard Deviation 45.3 36.4-46.3 fL RDW Coefficient of Variation 14.0 11.5-14.5 % Platelet Count 201 130-400 K/uL Mean Platelet Volume 10.2 7.4-10.4 fL Sodium Level 143 136-145 mmol/L Potassium Level 4.3 3.5-5.1 mmol/L Chloride Level 111 98-107 mmol/L Carbon Dioxide Level 22 21-32 mmol/L Anion Gap 10.0 3-11 mmol/L Blood Urea Nitrogen 40 7-18 mg/dl Creatinine 2.10 0.60-1.40 mg/dl Est Creatinine Clear Calc Drug Dose 27.4 ml/min Estimated GFR () 34.6 Estimated GFR (Non- 29.9 BUN/Creatinine Ratio 19.1 10-20 Random Glucose 78 70-99 mg/dl Calcium Level 8.9 8.5-10.1 mg/dl Troponin I < 0.015 0-0.045 ng/ml Test 05/16/16 11:06 05/16/16 16:33 Range/Units Bedside Glucose 108 105 70-99 mg/dl
[2016-05-16] MEDS: CEFTRIAXONE SOD INJ 1 GM in DEXTROSE 5% ADD-VANTAGE 50ML 50 ML IV SCH (17:53)
[2016-05-16] MEDS: DOXYCYCLINE HYCLATE 100 MG CAP PO SCH (19:42)
[2016-05-16] MEDS: GABAPENTIN 800 MG TAB PO SCH (19:42)
[2016-05-16] MEDS: ROPINIROLE HCL 1 MG TAB PO SCH (19:42)
[2016-05-16 20:08] VITALS: BP 170/80; PULSE 51; TEMP 36.5; O2SAT 96
[2016-05-16 22:50] VITALS: BP 162/72; PULSE 48; TEMP 36.4; O2SAT 95
[2016-05-17] VITALS (9 sets, daily range): BP systolic 133–196; BP diastolic 55–75; PULSE 49–64; TEMP 36.4–37.2; O2SAT 95–96
[2016-05-17] MEDS: SODIUM CHLORIDE 0.9% 1000ML 1,000 ML IV SCH ×2 (02:21→15:23)
[2016-05-17 06:22] LABS: BASO % 0.9 %; BASO ABS # 0.06 K/uL (0-0.2); COMPLETE YES; EOS % 4.2 %; HEMATOCRIT 38.1 % (42-52); IG% 0.3 %; LYMPH % 24.3 %; LYMPH ABS # 1.61 K/uL (1.2-3.4); MEAN CELL VOLUME 87.4 fL (80-100); MEAN CORPUSCULAR HEMOGLOBIN 29.1 pg (25-34); MEAN CORPUSCULAR HGB CONC 33.3 g/dl (32-36); MEAN PLATELET VOLUME 10.4 fL (7.4-10.4); MONO % 9.8 %; NEUT % 60.5 %; PLATELET COUNT 182 K/uL (130-400); RED BLOOD COUNT 4.36 M/uL (4.7-6.1); WHITE BLOOD COUNT 6.63 K/uL (4.8-10.8)
[2016-05-17 06:50] LABS: BUN/CREATININE RATIO 15.6 (10-20); CALCIUM 8.8 mg/dl (8.5-10.1); CREATININE 1.8 mg/dl (0.60-1.40); POTASSIUM 4.9 mmol/L (3.5-5.1)
--- NOTE | 2016-05-17 07:03 | ELECTROENCEPHALOGRAPH REPORT ---
REQUESTING DOCTOR: Dr. Andrew Webster. CLINICAL DIAGNOSIS: Change in mental status with visual hallucinations. EEG DIAGNOSIS: Abnormal EEG with multiple short duration (2-4 seconds) bursts of generalized spike and slow wave activity occurring at a frequency of 2-3 Hz without any clinical accompaniments. DESCRIPTION OF TRACING: This EEG was done as a bedside recording and is of good technical quality. Photic stimulation was performed. Hyperventilation was not and drowsiness and light sleep were not recorded. Video analysis of patient movement and behavior was recorded throughout the tracing. During wakefulness, there was evidence for normal appearing background rhythm in the alpha range of up to 9 Hz of maximum frequency and 20-30 microvolts of maximum amplitude. This is maximum posterior head regions and bilaterally symmetrical. Polymorphic mid frequency theta activity is seen over all head regions without clear focal or regional predominance. Anterior head region maximum bilaterally symmetrical low voltage fast activity in the beta range is present. Major abnormal feature of the tracing is the presence of relatively frequent short duration bursts of spike and slow wave activity occurring in a generalized fashion and in a frequency of between 1 and 3 Hz. No clinical accompaniments are ever noted during this type of activity upon review of the video analysis of patient movement and behavior. Photic stimulation provoked some modest driving response without a photomyogenic or photoparoxysmal component. 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 This may also be a genetic marker for an underlying epileptic disorder and may not have ever been clinically manifested. The fact that these discharges occur without clinical accompaniments is interesting and clinical correlation is required. [facility]
[2016-05-17] MEDS: LOSARTAN POTASSIUM 50 MG TAB PO SCH (07:47)
[2016-05-17] MEDS: CHOLECALCIFEROL 1000 INTER.UNIT TAB PO SCH (07:49)
[2016-05-17] MEDS: SIMVASTATIN 20 MG TAB PO SCH (07:49)
[2016-05-17] MEDS: PANTOprazole SOD 40 MG TAB PO SCH (07:49)
[2016-05-17] MEDS: DOXYCYCLINE HYCLATE 100 MG CAP PO SCH ×2 (07:49→21:09)
[2016-05-17] MEDS: GABAPENTIN 800 MG TAB PO SCH ×3 (07:50→21:09)
[2016-05-17] MEDS: HEPARIN SOD 5000 UNIT/0.5 ML CARP SQ SCH ×2 (07:50→21:10)
[2016-05-17] MEDS: AMLODIPINE BESYLATE 5 MG TAB PO SCH (07:51)
[2016-05-17] MEDS: CLOPIDOGREL BISULFATE 75 MG TAB PO SCH (07:51)
[2016-05-17] MEDS: ASPIRIN 81 MG ECTAB PO SCH (07:51)
[2016-05-17] MEDS: ALLOPURINOL 100 MG TAB PO SCH (07:51)
--- NOTE | 2016-05-17 09:50 | Cardiology Follow-Up ---
Subjective General Date of Service: May 17, 2016. Chief Complaint: Hallucinations Pt evaluation today including: conversation w/ patient, physical exam, chart review, lab review, review of studies, review of inpatient medication list History of Present Illness Patient seen and examined. No chest pain. No palpitations. Stable dyspnea, without orthopnea, PND, or edema. Allergies Coded Allergies: No Known Allergies (Unverified , 05/15/16) Social History Smoking Status: Former Smoker Hx Tobacco Use In Past Year?: Yes Hx Alcohol Use - Type And Amou: No Hx Substance Use - Type And Am: Yes (chewing tobacco) Problem List Medical Problems: (1) Gout Status: Acute (2) Hallucinations Status: Acute (3) Leg pain, right Status: Acute (4) Right inguinal hernia Status: Acute (5) Sinusitis Status: Acute Physical Exam Vital Signs Last Vital Signs Documentation Date Time Temp Pulse Resp B/P Pulse Ox O2 Delivery O2 Flow Rate FiO2 05/17/16 08:00 Room Air 05/17/16 07:45 37.2 57 20 196/71 96 181/75 Physical Exam Constitutional: Level of Distress: mild distress Psychiatric: Mental Status: active & alert Orientation: to place, to person, not oriented to time Memory: recent memory normal, remote memory normal Head: normocephalic, atraumatic Neck: pertinent finding (Normal JVP) Lungs: Respiratory effort: no dyspnea Auscultation: breath sounds normal Cardiovascular: Heart Auscultation: RRR, no rubs, III/ JACOB Peripheral Pulses: Dorsalis Pedis Pulse: decreased on the left, decreased on the right Abdomen: Bowel Sounds: normal Extremities: no cyanosis, no edema, no clubbing Neurologic: Cranial Nerves: grossly intact Assessment and Plan Assessment and Plan Admission with mental status changes, hallucinations, sinusitis. Cardiology consultation secondary to chest pain, bradycardia Chest pain Atypical of cardiac etiology Troponin negative x [address] segment changes Echo pending History of ASCVD Status post CABG at [facility] (ROBLES to the LAD, inferior epigastric artery to the RCA, SVG to the diagonal branch, SVG to an obtuse marginal) Cardiac catheterization on 09/21/09 revealed that the inferior epigastric artery to RCA graft was widely patent but threatened by an 80% hepatic artery stenosis It was felt this was likely his culprit for the abnormal stress test but the risks of intervention outweighed the benefit. The other grafts were patent at that time. Bradycardia Atenolol held Telemetry currently with sinus at 60 bpm, bradycardia down to 35 bpm while sleeping. No significant pauses. No overt indication for permanent pacemaker implantation at this point Hypertension Off Atenolol secondary to bradycardia Off HCTZ secondary to KRIS On Norvasc 10 mg/day and Losartan 100 mg/day Add Imdur 60 mg/day Moderate aortic stenosis. Echo pending Ongoing hallucinations and sinusitis complaints, improving. ? Tamiflu x 5 days 1 week ago to prevent influenza. Also prescribed Oxycodone PRN pain and gabapentin at home. As per the hospitalist. Cardiology attending: Pt seen and examined, agree with findings and assessment as per Narayan Gallegos. Echocardiogram unable to accurately assess ascending aorta, will perform urgent CT of chest to further evaluate. CT negative. Cont with bp management, hydralazine added. Laboratory Results Last 24 Hours Test 05/16/16 11:06 05/16/16 16:33 05/16/16 20:30 05/16/16 21:50 Bedside Glucose 108 mg/dl 105 mg/dl 94 mg/dl Test 05/17/16 05:44 05/17/16 06:49 White Blood Count 6.63 K/uL Red Blood Count 4.36 M/uL Hemoglobin 12.7 g/dL Hematocrit 38.1 % Mean Corpuscular Volume 87.4 fL Mean Corpuscular Hemoglobin 29.1 pg Mean Corpuscular Hemoglobin Concent 33.3 g/dl Platelet Count 182 K/uL Mean Platelet Volume 10.4 fL Neutrophils (%) (Auto) 60.5 % Lymphocytes (%) (Auto) 24.3 % Monocytes (%) (Auto) 9.8 % Eosinophils (%) (Auto) 4.2 % Basophils (%) (Auto) 0.9 % Neutrophils # (Auto) 4.01 K/uL Lymphocytes # (Auto) 1.61 K/uL Monocytes # (Auto) 0.65 K/uL Eosinophils # (Auto) 0.28 K/uL Basophils # (Auto) 0.06 K/uL RDW Standard Deviation 45.0 fL RDW Coefficient of Variation 13.9 % Immature Granulocyte % (Auto) 0.3 % Immature Granulocyte # (Auto) 0.02 K/uL Sodium Level 142 mmol/L Potassium Level 4.9 mmol/L Chloride Level 113 mmol/L Carbon Dioxide Level 22 mmol/L Anion Gap 7.0 mmol/L Blood Urea Nitrogen 28 mg/dl Creatinine 1.80 mg/dl Est Creatinine Clear Calc Drug Dose 32.0 ml/min Estimated GFR () 41.7 Estimated GFR (Non- 36.0 BUN/Creatinine Ratio 15.6 Random Glucose 105 mg/dl Calcium Level 8.8 mg/dl Vitamin B12 Level 415 pg/mL Folate 8.23 ng/mL Bedside Glucose 101 mg/dl
[2016-05-17] MEDS: ISOSORBIDE MONONITRATE 60 MG TABCR PO SCH (10:03)
[2016-05-17] MEDS: HydrALAZINE 10 MG TAB PO SCH ×2 (12:47→21:08)
--- NOTE | 2016-05-17 15:38 | DIAGNOSTIC IMAGING REPORT ---
CHEST CT WITHOUT CONTRAST CT DOSE: 433.78 mGy.cm HISTORY: Dyspnea aortic dilation TECHNIQUE: Multiaxial CT images of the chest were performed without contrast. COMPARISON: None. FINDINGS: Lungs are clear. Minimal dependent basilar atelectasis. Median sternotomy. Calcification of the coronary arterial vasculature. Mild atherosclerotic change and ectasia of the abdomen of the thoracic aorta. Maximum diameter of the a sending aorta is 3.5 cm. IMPRESSION: 1. Moderate abscess chronic change and ectasia of the thoracic aorta. Maximal diameter of ascending thoracic aorta 3.5 cm. Lungs are clear. Electronically signed by: Narayan Romero M.D. 05/17/2016 3:37 PM Dictated Date/Time: 05/17/2016 3:29 PM
--- NOTE | 2016-05-17 15:50 | ECHOCARDIOGRAM REPORT ---
*NOTICE TO RECEIVING LIBERTARIAN AGENCY This information is strictly Confidential and protected under [place] law. [place] law prohibits you from making any further disclosure of this information unless further disclosure is expressly permitted by the written consent of the person to whom it pertains or is authorized by law. A general authorization for the release of medical or other information is not sufficient for this purpose. Hospital accepts no responsibility if the information is made available to any other person, INCLUDING THE PATIENT. Interpretation Summary * Name: AMAYA CALDERON JR Study Date: 05/17/2016 01:46 PM BP: 145/65 mmHg * Patient Location: .2T\S\S238\S\1 HR: 48 * : 1940 (M/d/yyyy) Gender: Male Height: 66 in * Age: 75 yrs Ethnicity: CA Weight: 162 lb * Ordering Physician: Russ Hdez * Referring Physician: Self, Referred * Performed By: Flory Dang RCS * * Reason For Study: Chest Pain * BSA: 1.8 m2 * -- Conclusions -- * Normal LV chamber size with mild concentric LVH. * Normal LV systolic function, EF 60-65%. * No segmental left ventricular wall motion abnormalities are noted. * Grade I diastolic dysfunction. * Unable to accurately visualize aortic diameter. Will perform CT of chest to rule out aortic aneurysm or dissection. * Moderately calcified aortic valve, unable to discern number of leaflets. Moderate stenosis. * Mild aortic regurgitation. * Mild tricuspid regurgitation. Procedure Details * A complete two-dimensional transthoracic echocardiogram was performed (2D, M-mode, Doppler and color flow Doppler). Left Ventricle * The left ventricle is normal in size. * There is mild concentric left ventricular hypertrophy. * Ejection Fraction = 60-65%. * Left ventricular systolic function is normal. * No segmental left ventricular wall motion abnormalities are noted. * The left ventricular wall motion is normal. Right Ventricle * The right ventricular cavity size is normal (basal dimension <4.2 cm in right ventricular apical 4-chamber view). * The right ventricular systolic function is normal as assessed by tricuspid annular plane systolic excursion (TAPSE) (normal >1.5 cm). Atria * The left atrial size is normal. * Right atrial size is normal. * No ASD detected; PFO is not assessed. Mitral Valve * The mitral valve leaflets appear thickened, but open well. * There is mild mitral annular calcification. * There is no mitral regurgitation noted. Tricuspid Valve * The tricuspid valve anatomy is normal. * There is no tricuspid stenosis. * There is mild tricuspid regurgitation. Aortic Valve * The aortic valve is not well visualized. * Moderately calcified aortic valve, unable to discern number of leaflets. Moderate stenosis. * Mild aortic regurgitation. Pulmonic Valve * The pulmonary valve is not well seen, but the Doppler examination is normal without significant regurgitation or stenosis. Great Vessels * Unable to accurately visualize aortic diameter. Will perform CT of chest to rule out aortic aneurysm or dissection. Pericardium/Pleural * There is no pericardial effusion. Left Ventricular Diastolic Function * Grade I diastolic dysfunction, (abnormal relaxation pattern). MMode 2D Measurements and Calculations IVSd 1.1 cm IVSs 1.5 cm LVIDd 3.5 cm LVIDs 2.2 cm LVPWd 1.1 cm LVPWs 1.4 cm IVS/LVPW 0.95 FS 37.3 % EDV(Teich) 51.5 ml ESV(Teich) 16.3 ml EF(Teich) 68.4 % EDV(cubed) 43.5 ml ESV(cubed) 10.7 ml EF(cubed) 75.4 % % IVS thick 37.5 % % LVPW thick 26.5 % LV mass(C)d 118.2 grams LV mass(C)dI 64.6 grams/m\S\2 LV mass(C)s 100.6 grams LV mass(C)sI 55.0 grams/m\S\2 CO(Teich) 1.9 l/min CI(Teich) 1.0 l/min/m\S\2 SV(Teich) 35.2 ml SI(Teich) 19.3 ml/m\S\2 CO(cubed) 1.7 l/min CI(cubed) 0.95 l/min/m\S\2 SV(cubed) 32.8 ml SI(cubed) 17.9 ml/m\S\2 LVOT diam 2.0 cm LVOT area 3.1 cm\S\2 LVAd ap4 29.7 cm\S\2 LVLd ap4 8.4 cm EDV(MOD-sp4) 88.0 ml LVAs ap4 16.6 cm\S\2 LVLs ap4 6.9 cm ESV(MOD-sp4) 35.0 ml EF(MOD-sp4) 60.2 % LVAd ap2 26.7 cm\S\2 LVLd ap2 7.4 cm EDV(MOD-sp2) 80.0 ml LVAs ap2 12.8 cm\S\2 LVLs ap2 6.0 cm ESV(MOD-sp2) 24.0 ml EF(MOD-sp2) 70.0 % CO(MOD-sp4) 2.8 l/min CI(MOD-sp4) 1.5 l/min/m\S\2 SV(MOD-sp4) 53.0 ml SI(MOD-sp4) 29.0 ml/m\S\2 CO(MOD-sp2) 3.0 l/min CI(MOD-sp2) 1.6 l/min/m\S\2 SV(MOD-sp2) 56.0 ml SI(MOD-sp2) 30.6 ml/m\S\2 Doppler Measurements and Calculations MV E max demetrius 88.8 cm/sec MV A max demetrius 98.2 cm/sec MV E/A 0.90 MV P1/2t max demetrius 90.3 cm/sec MV P1/2t 67.3 msec MVA(P1/2t) 3.3 cm\S\2 MV dec slope 392.9 cm/sec\S\2 MV dec time 0.22 sec Ao V2 max 288.1 cm/sec Ao max PG 33.2 mmHg Ao max PG (full) 29.4 mmHg Ao V2 mean 185.9 cm/sec Ao mean PG 16.4 mmHg Ao mean PG (full) 14.2 mmHg Ao V2 VTI 70.6 cm MICHELLE(I,A) 1.2 cm\S\2 MICHELLE(I,D) 1.2 cm\S\2 MICHELLE(V,A) 1.1 cm\S\2 MICHELLE(V,D) 1.1 cm\S\2 AI max demetrius 396.7 cm/sec AI max PG 63.0 mmHg AI dec slope 119.2 cm/sec\S\2 AI P1/2t 974.5 msec LV V1 max PG 3.8 mmHg LV V1 mean PG 2.2 mmHg LV V1 max 97.7 cm/sec LV V1 mean 70.8 cm/sec LV V1 VTI 27.3 cm SV(LVOT) 84.9 ml SI(LVOT) 46.4 ml/m\S\2 PA V2 max 130.3 cm/sec PA max PG 6.8 mmHg TR max demetrius 217.3 cm/sec
--- NOTE | 2016-05-17 16:01 | Neurology Progress Notes ---
Neurology Progress Note Date of Service May 17, 2016. Thiago Chaves is a 75 year old male who presented with MS change and lethargy. He states he was getting sick about one week ago with a persistent productive cough. He was lethargic and having episodes of visual and tactile hallucinations.He has chronic exertional shortness of breath which is unchanged. He has not been eating or drinking well since he started getting sick. Currently he denies abdominal pain, N,V,D, fever chills night sweats, headache, back or neck pain or stiffness. He takes glipizide and reports he does not check his blood sugars. He reports that despite a poor appetite the past couple of days, he has continued to take his glipizide and all other medicines. His glucose was 69 upon arrival to the ED. His CT imaging showing pansinusitis. He is also found to be bradycardic in the 40s-50s (prior records show HR in the 50s). He is afebrile with normal WBC. He was given IVF and IV Zosyn in the ED. He states currently he is not feeling any better and has been tired since this all started. He also states he is still seeing some hallucinations but knows they are not there. family is in the room and feels he is very close to baseline. denies CP, SOB, abdominal pain, weakness, numbness, tingling Objective Date Time Temp Pulse Resp B/P Pulse Ox O2 Delivery O2 Flow Rate FiO2 05/17/16 14:26 60 134/58 05/17/16 12:00 Room Air 05/17/16 10:55 36.6 61 20 170/72 96 134/65 145/65 05/17/16 10:00 174/64 05/17/16 08:00 Room Air 05/17/16 07:45 37.2 57 20 196/71 96 181/75 05/17/16 04:20 36.9 60 18 163/69 96 Room Air 05/17/16 04:00 Room Air 05/17/16 00:00 Room Air 05/16/16 22:50 36.4 48 16 162/72 95 Room Air 05/16/16 20:08 36.5 51 18 170/80 96 05/16/16 20:00 Room Air 05/16/16 16:30 Room Air 05/16/16 15:52 36.7 50 18 131/60 97 Room Air Last 24 Hours Test 05/16/16 16:33 05/16/16 20:30 05/16/16 21:50 05/17/16 05:44 Bedside Glucose 105 mg/dl 94 mg/dl White Blood Count 6.63 K/uL Red Blood Count 4.36 M/uL Hemoglobin 12.7 g/dL Hematocrit 38.1 % Mean Corpuscular Volume 87.4 fL Mean Corpuscular Hemoglobin 29.1 pg Mean Corpuscular Hemoglobin Concent 33.3 g/dl Platelet Count 182 K/uL Mean Platelet Volume 10.4 fL Neutrophils (%) (Auto) 60.5 % Lymphocytes (%) (Auto) 24.3 % Monocytes (%) (Auto) 9.8 % Eosinophils (%) (Auto) 4.2 % Basophils (%) (Auto) 0.9 % Neutrophils # (Auto) 4.01 K/uL Lymphocytes # (Auto) 1.61 K/uL Monocytes # (Auto) 0.65 K/uL Eosinophils # (Auto) 0.28 K/uL Basophils # (Auto) 0.06 K/uL RDW Standard Deviation 45.0 fL RDW Coefficient of Variation 13.9 % Immature Granulocyte % (Auto) 0.3 % Immature Granulocyte # (Auto) 0.02 K/uL Sodium Level 142 mmol/L Potassium Level 4.9 mmol/L Chloride Level 113 mmol/L Carbon Dioxide Level 22 mmol/L Anion Gap 7.0 mmol/L Blood Urea Nitrogen 28 mg/dl Creatinine 1.80 mg/dl Est Creatinine Clear Calc Drug Dose 32.0 ml/min Estimated GFR () 41.7 Estimated GFR (Non- 36.0 BUN/Creatinine Ratio 15.6 Random Glucose 105 mg/dl Calcium Level 8.8 mg/dl Vitamin B12 Level 415 pg/mL Folate 8.23 ng/mL Test 05/17/16 06:49 05/17/16 11:37 Bedside Glucose 101 mg/dl 190 mg/dl Imaging: CT abdomen-Moderate abscess chronic change and ectasia of the thoracic aorta. Maximal diameter of ascending thoracic aorta 3.5 cm. Lungs are clear. 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 This may also be a genetic marker for an underlying epileptic disorder and may not have ever been clinically manifested. The fact that these discharges occur without clinical accompaniments is interesting and clinical correlation is required. MRI brain with and without- . Atrophy. chronic small vessel change. No acute ischemic process. Considerable mucosal thickening of the maxillary and ethmoid sinuses with associated air-fluid levels. Exam: Physical Exam: Constitutional: appearance nourished, healthy and normal Ears, Nose, Mouth and Throat: mucous membranes moist, no injection and skin normal, eyes normal Cardiovascular: normal S-1 and S-2 and regular rate and rhythm Respiratory: clear to auscultation (CTA) and no rales, rhonchi or wheeze Musculoskeletal: no peripheral edema and good distal pulses Skin: no stigmata of neurocutaneous disease noted and normal and intact Eyes: extraocular muscles intact (EOMI) and pupils equal, round and reactive to light (PERRL) NEUROLOGIC EXAMINATION: Mental status: Alert and interactive Oriented location Oriented to person Speech fluent with no evidence of aphasia Cranial Nerves facial symmetric Gait/Stance: lying in bed Strength: biceps 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 hip flex plantar flex ext 5/5 bilaterally Current Inpatient Medications Medications (Trade) Dose Ordered Sig/Gato Route Start Time Stop Time Status Last Admin Dose Admin Heparin Sodium (Porcine) 5000 unit 5,000 unit Q12 SQ 05/15/16 21:00 06/14/16 20:59 05/17/16 07:50 5,000 UNIT Sodium Chloride (Nss 1000ml) 1,000 ml @ 80 mls/hr [id number] IV 05/15/16 15:42 06/14/16 15:41 05/17/16 15:23 80 MLS/HR Acetaminophen (Tylenol Tab) 650 mg Q4H PRN PO 05/15/16 15:45 06/14/16 15:44 05/15/16 21:20 650 MG Ondansetron HCl (Zofran Inj) 4 mg Q6H PRN IV 05/15/16 15:45 06/14/16 15:44 Allopurinol (Zyloprim Tab) 100 mg DAILY PO 05/16/16 09:00 06/15/16 08:59 05/17/16 07:51 100 MG Amlodipine Besylate (Norvasc Tab) 10 mg QAM PO 05/16/16 09:00 06/15/16 08:59 05/17/16 07:51 10 MG Aspirin (Ecotrin Tab) 81 mg QAM PO 05/16/16 09:00 06/15/16 08:59 05/17/16 07:51 81 MG Cholecalciferol (Vitamin D Tab) 1,000 inter.unit DAILY PO 05/16/16 09:00 06/15/16 08:59 05/17/16 07:49 1,000 INTER.UNIT Clopidogrel Bisulfate (plAVix TAB) 75 mg QAM PO 05/16/16 09:00 06/15/16 08:59 05/17/16 07:51 75 MG Losartan Potassium (coZAAR TAB) 100 mg QAM PO 05/16/16 09:00 06/15/16 08:59 05/17/16 07:47 100 MG Ropinirole HCl (Requip Tab) 2 mg HS PO 05/15/16 21:00 06/14/16 20:59 05/16/16 19:42 2 MG Simvastatin (Zocor Tab) 20 mg QAM PO 05/16/16 09:00 06/15/16 08:59 05/17/16 07:49 20 MG Pantoprazole Sodium (Protonix Tab) 40 mg QAM PO 05/16/16 09:00 06/15/16 08:59 05/17/16 07:49 40 MG Miscellaneous (Iv Fluids Completed) 1 ea PRN PRN N/A 05/15/16 19:15 05/15/17 19:14 Gabapentin (Neurontin Tab) 800 mg TID PO 05/16/16 21:00 06/15/16 20:59 05/17/16 14:26 800 MG Doxycycline Hyclate 100 mg 100 mg BID PO 05/16/16 21:00 05/23/16 20:59 05/17/16 07:49 100 MG Ceftriaxone Sodium/Dextrose (Rocephin Inj/ Dextrose Add-Indiahoma 50ML) 50 ml @ 100 mls/hr Q24H IV 05/16/16 17:00 05/23/16 16:44 05/16/16 17:53 100 MLS/HR Isosorbide Mononitrate (Imdur Ext Rel Tab) 60 mg QAM PO 05/17/16 11:00 06/16/16 10:59 05/17/16 10:03 60 MG Hydralazine HCl (Apresoline Tab) 10 mg TID PO 05/17/16 14:00 06/16/16 13:59 05/17/16 12:47 10 MG Impression 75 year old male UR illness x 1 week and hallucinations Plan 1. seems at baseline not disoriented- confirmed by family 2. cough is less pronounced today 3. electrolytes corrected 4. MRI without contrast ordered due to renal function to r/o stroke or other structural issues- no acute findings. 5. EEG -r/o seizures- will need an out patient EEG 48 hours to see if the episode correlate with the abnormal pattern on EEG- 6. would not start AEM at this time will wait for out patient work up 7. gabapentin level pending- will need to see if high due to renal function I have seen and discussed above patient with Dr Andrew Webster, neurology Likely back to baseline- minor hallucinations this am but may have been a dream state as they were present on awakening suddenly LIkely going home tomorrow so we will sign off with plans to do outpaitent ambulatory eeg after we se him in clinic in several weeks Again the eeg abnormalities do not correlate with the clinical picture as there is no history of tonic cloinc activity and/or absence and suspect the hallucinations were part of a parainfectious delerium with the eeg findings being incidental Andrew Webster MD
[2016-05-17] MEDS: CEFTRIAXONE SOD INJ 1 GM in DEXTROSE 5% ADD-VANTAGE 50ML 50 ML IV SCH (16:41)
--- NOTE | 2016-05-17 16:45 | Progress Note ---
Internal Med Progress Note Date of Service: May 17, 2016. Provider Documentation: SUBJECTIVE: Patient is sitting in his bed in no apparent distress. Awake and tries to answer my questions well. C/o intermittent frontal headache. Still has some sinus pressure. Few Loose BMs overnight. Denies any hallucinations today. OBJECTIVE: Vital Signs-as noted below Examination: General Appearance: Alert/Awake and is in no apparent distress Head: normocephalic Eyes: normal inspection ENT: hearing grossly normal, Some B/L Sinus tenderness. Neck: supple, Central trachea, no JVD Respiratory/Chest: no respiratory distress, B/L almost clear to auscultation. Cardiovascular: no edema, + bradycardia Abdomen/GI: normal bowel sounds, non tender, soft Extremities/Musculoskeletal: normal inspection, no calf tenderness Neurologic/Psych: no motor/sensory deficits, alert, normal mood/affect, oriented x 3 Skin: normal color, warm/dry Lab data as noted below. ASSESSMENT & PLAN: CT SCAN OF THE BRAIN WITHOUT IV CONTRAST FINDINGS: Brain parenchyma: There are age-related involutional changes noting moderate patchy subcortical and periventricular microangiopathic change. There is no hemorrhage, mass effect, or evidence of acute territorial ischemia by CT criteria. Maxwell-white matter is preserved. No extra-axial fluid collection is seen. Ventricles, sulci, cisterns: Prominent secondary to involutional change. Intracranial vasculature: There is atherosclerotic calcification of the cavernous carotid and vertebral arteries. Calvarium: Unremarkable. Sinuses and mastoids: There is moderate mucosal thickening with large air-fluid levels in the maxillary antra. Moderate mucosal thickening is also seen throughout the ethmoid sinuses and in the left sphenoid sinus. Mild mucosal thickening is present within the frontal and right sphenoid sinuses. The mastoid air cells are well pneumatized. Orbits: The bony orbits are grossly intact. IMPRESSION: 1. There is no hemorrhage, mass effect, or evidence of acute territorial ischemia by CT criteria. 2. Pansinusitis as above. ALTERED MENTAL STATUS, LETHARGY, HALLUCINATIONS: Clinically resolving now. Remains stable. Patient presenting with one week of productive cough and lethargy/ hallucinations over the past two days -Influenza screen is negative -Gentle IVF -Patient found to have pansinusitis on CT scan - glucose noted to be 69 on labs - patient reports he does not check his blood sugars and has continued to take glipizide despite poor appetite the past 2 days -Considering symptomatic bradycardia - HR noted to be in the 40s-50s (per prior records HR has run in the 50s), BP stable - hold atenolol and monitor in tele -He is already on dual antiplatelet therapy and statin Pansinusitis: s/p Zosyn in ED. Do not suspect sepsis - afebrile, no leukocytosis -Continue Doxycycline (day # 3) & Rocephin (day # 2). Diarrhea: Check for C. Diff. -Added Lactobacillus Bradycardia: HR is improving. -Cardiology evaluation reviewed. Thanks for input -Troponin X 3 is normal Hypertension: BP controlled, continue amlodipine and losartan -Holding atenolol as above, hold HCTZ while giving IVF CAD S/P CABG: No acute cardiac symptoms. -Continue ASA, Plavix, statin -Holding beta kiersten due to bradycardia Diabetes Type II: HbA1c is 6.4 in june 2015. Needs to be repeated. -Holding glipizide, check BSG -Monitor for hypoglycemia as above History PAD: Stable. -Continue ASA, Plavix CKD Stage IV: Baseline creat runs in the low 2's -Continue monitoring GFR -Avoid any Nephrotoxin DVT Prophylaxis: SQ Heparin Disposition: Discharge once is medically stable. Vital Signs: Date Time Temp Pulse Resp B/P Pulse Ox O2 Delivery O2 Flow Rate FiO2 05/17/16 16:00 Room Air 05/17/16 15:59 36.6 62 18 133/60 95 Room Air 05/17/16 14:26 60 134/58 05/17/16 12:00 Room Air 05/17/16 10:55 36.6 61 20 170/72 96 134/65 145/65 05/17/16 10:00 174/64 05/17/16 08:00 Room Air 05/17/16 07:45 37.2 57 20 196/71 96 181/75 05/17/16 04:20 36.9 60 18 163/69 96 Room Air 05/17/16 04:00 Room Air 05/17/16 00:00 Room Air 05/16/16 22:50 36.4 48 16 162/72 95 Room Air 05/16/16 20:08 36.5 51 18 170/80 96 05/16/16 20:00 Room Air Lab Results: Results Past 24 Hours Test 05/16/16 20:30 05/16/16 21:50 05/17/16 05:44 05/17/16 06:49 Range/Units Bedside Glucose 94 101 70-99 mg/dl White Blood Count 6.63 4.8-10.8 K/uL Red Blood Count 4.36 4.7-6.1 M/uL Hemoglobin 12.7 14.0-18.0 g/dL Hematocrit 38.1 42-52 % Mean Corpuscular Volume 87.4 80-100 fL Mean Corpuscular Hemoglobin 29.1 25-34 pg Mean Corpuscular Hemoglobin Concent 33.3 32-36 g/dl Platelet Count 182 130-400 K/uL Mean Platelet Volume 10.4 7.4-10.4 fL Neutrophils (%) (Auto) 60.5 % Lymphocytes (%) (Auto) 24.3 % Monocytes (%) (Auto) 9.8 % Eosinophils (%) (Auto) 4.2 % Basophils (%) (Auto) 0.9 % Neutrophils # (Auto) 4.01 1.4-6.5 K/uL Lymphocytes # (Auto) 1.61 1.2-3.4 K/uL Monocytes # (Auto) 0.65 0.11-0.59 K/uL Eosinophils # (Auto) 0.28 0-0.5 K/uL Basophils # (Auto) 0.06 0-0.2 K/uL RDW Standard Deviation 45.0 36.4-46.3 fL RDW Coefficient of Variation 13.9 11.5-14.5 % Immature Granulocyte % (Auto) 0.3 % Immature Granulocyte # (Auto) 0.02 0.00-0.02 K/uL Sodium Level 142 136-145 mmol/L Potassium Level 4.9 3.5-5.1 mmol/L Chloride Level 113 98-107 mmol/L Carbon Dioxide Level 22 21-32 mmol/L Anion Gap 7.0 3-11 mmol/L Blood Urea Nitrogen 28 7-18 mg/dl Creatinine 1.80 0.60-1.40 mg/dl Est Creatinine Clear Calc Drug Dose 32.0 ml/min Estimated GFR () 41.7 Estimated GFR (Non- 36.0 BUN/Creatinine Ratio 15.6 10-20 Random Glucose 105 70-99 mg/dl Calcium Level 8.8 8.5-10.1 mg/dl Vitamin B12 Level 415 211-911 pg/mL Folate 8.23 >5.38 ng/mL Test 05/17/16 11:37 05/17/16 16:15 Range/Units Bedside Glucose 190 129 70-99 mg/dl
[2016-05-17] MEDS: LACTOBACILLUS ACIDOPHILUS (FLORANEX) TAB PO SCH (17:40)
[2016-05-17] MEDS: ROPINIROLE HCL 1 MG TAB PO SCH (21:08)
[2016-05-18 04:16] VITALS: BP 129/49; PULSE 55; TEMP 36.8; O2SAT 96
[2016-05-18] MEDS: SODIUM CHLORIDE 0.9% 1000ML 1,000 ML IV SCH (04:57)
[2016-05-18 06:44] LABS: BASO ABS # 0.07 K/uL (0-0.2); COMPLETE YES; EOS % 3.1 %; HEMATOCRIT 35.9 % (42-52); IG% 0.6 %; LYMPH % 21.7 %; LYMPH ABS # 1.56 K/uL (1.2-3.4); MEAN CELL VOLUME 87.3 fL (80-100); MEAN CORPUSCULAR HGB CONC 33.1 g/dl (32-36); MEAN PLATELET VOLUME 9.9 fL (7.4-10.4); MONO % 7.9 %; NEUT % 65.7 %; PLATELET COUNT 179 K/uL (130-400); RED BLOOD COUNT 4.11 M/uL (4.7-6.1); WHITE BLOOD COUNT 7.19 K/uL (4.8-10.8)
[2016-05-18 07:15] LABS: CALCIUM 8.3 mg/dl (8.5-10.1); CREATININE 1.9 mg/dl (0.60-1.40); POTASSIUM 4.7 mmol/L (3.5-5.1)
[2016-05-18] MEDS: LACTOBACILLUS ACIDOPHILUS (FLORANEX) TAB PO SCH ×2 (07:38→12:06)
[2016-05-18] MEDS: CHOLECALCIFEROL 1000 INTER.UNIT TAB PO SCH (07:38)
[2016-05-18] MEDS: HydrALAZINE 10 MG TAB PO SCH ×2 (07:39→14:54)
[2016-05-18] MEDS: GABAPENTIN 800 MG TAB PO SCH ×2 (07:39→14:54)
[2016-05-18] MEDS: LOSARTAN POTASSIUM 50 MG TAB PO SCH (07:39)
[2016-05-18] MEDS: ASPIRIN 81 MG ECTAB PO SCH (07:40)
[2016-05-18] MEDS: AMLODIPINE BESYLATE 5 MG TAB PO SCH (07:40)
[2016-05-18] MEDS: PANTOprazole SOD 40 MG TAB PO SCH (07:40)
[2016-05-18] MEDS: CLOPIDOGREL BISULFATE 75 MG TAB PO SCH (07:40)
[2016-05-18] MEDS: ALLOPURINOL 100 MG TAB PO SCH (07:40)
[2016-05-18] MEDS: DOXYCYCLINE HYCLATE 100 MG CAP PO SCH (07:41)
[2016-05-18] MEDS: ISOSORBIDE MONONITRATE 60 MG TABCR PO SCH (07:41)
[2016-05-18 07:44] VITALS: BP_SYST 128; BP_SYST 129; BP_SYST 143; BP_DIAS 68; BP_DIAS 71; BP_DIAS 84; PULSE 58; PULSE 79; PULSE 83; TEMP 37; O2SAT 95
[2016-05-18] MEDS: HEPARIN SOD 5000 UNIT/0.5 ML CARP SQ SCH (07:47)
[2016-05-18] MEDS: SIMVASTATIN 20 MG TAB PO SCH (07:51)
--- NOTE | 2016-05-18 10:03 | Cardiology Follow-Up ---
Subjective General Date of Service: May 18, 2016. Chief Complaint: Hallucinations Pt evaluation today including: conversation w/ patient, physical exam, chart review, lab review, review of studies, review of inpatient medication list History of Present Illness Patient seen and examined. Feels better. Improved URI. No further hallucinations. Diarrhea resolved. Requests evaluation for Lyme No chest pain. No palpitations. Stable dyspnea, without orthopnea, PND, or edema. Telemetry: Currently sinus at 60 bpm. Telemetry reviews evidence of mild sick sinus syndrome. Bradycardia into the mid 30's. Short runs of asymptomatic supraventricular tachycardia, SVT versus atrial tachycardia. May 17, 2016 TTE Interpretation Summary ([facility], Dr. Hdez): Normal LV chamber size with mild concentric LVH. Normal LV systolic function, EF 60-65%. No segmental left ventricular wall motion abnormalities are noted. Grade I diastolic dysfunction. Unable to accurately visualize aortic diameter. Will perform CT of chest to rule out aortic aneurysm or dissection. Moderately calcified aortic valve, unable to discern number of leaflets. Moderate stenosis. Mild aortic regurgitation. Mild tricuspid regurgitation. Allergies Coded Allergies: No Known Allergies (Unverified , 05/15/16) Social History Smoking Status: Former Smoker Hx Tobacco Use In Past Year?: Yes Hx Alcohol Use - Type And Amou: No Hx Substance Use - Type And Am: Yes (chewing tobacco) Problem List Medical Problems: (1) Gout Status: Acute (2) Hallucinations Status: Acute (3) Leg pain, right Status: Acute (4) Right inguinal hernia Status: Acute (5) Sinusitis Status: Acute Physical Exam Vital Signs Last Vital Signs Documentation Date Time Temp Pulse Resp B/P Pulse Ox O2 Delivery O2 Flow Rate FiO2 05/18/16 07:44 37.0 58 20 143/84 95 Room Air 79 128/68 83 129/71 Physical Exam Constitutional: Level of Distress: NAD Psychiatric: Mental Status: active & alert Orientation: to time, to place, to person Memory: recent memory normal, remote memory normal Head: normocephalic, atraumatic Neck: pertinent finding (Normal JVP) Lungs: Respiratory effort: no dyspnea Auscultation: breath sounds normal Cardiovascular: Heart Auscultation: RRR, no rubs, III/ JACOB Peripheral Pulses: Dorsalis Pedis Pulse: decreased on the left, decreased on the right Abdomen: Bowel Sounds: normal Extremities: no cyanosis, no edema, no clubbing Neurologic: Cranial Nerves: grossly intact Assessment and Plan Assessment and Plan Admission with mental status changes, hallucinations, sinusitis. Cardiology consultation secondary to chest pain, bradycardia Chest pain Atypical of cardiac etiology Troponin negative x [address] segment changes Echo with normal systolic function, without segmental left ventricular wall motion abnormalities Consider need for outpatient stress test at follow-up History of ASCVD Status post CAB[place] [facility] [place] (ROBLES to the LAD, inferior epigastric artery to the RCA, SVG to the diagonal branch, SVG to an obtuse marginal) Cardiac catheterization on 09/21/09 revealed that the inferior epigastric artery to RCA graft was widely patent but threatened by an 80% hepatic artery stenosis It was felt this was likely his culprit for the abnormal stress test but the risks of intervention outweighed the benefit. The other grafts were patent at that time. Sick Sinus Syndrome Atenolol held No significant pauses. Asymptomatic. Continue to follow Future need for permanent dual chamber pacemaker implantation discussed. Hypertension Off Atenolol secondary to bradycardia Off HCTZ secondary to KRIS On Norvasc 10 mg/day and Losartan 100 mg/day Imdur 60 mg/day added with improvement. Continue as prescribed. Moderate aortic stenosis. Stable. Laboratory Results Last 24 Hours Test 05/17/16 11:37 05/17/16 16:15 05/17/16 20:24 05/18/16 06:22 Bedside Glucose 190 mg/dl 129 mg/dl 127 mg/dl White Blood Count 7.19 K/uL Red Blood Count 4.11 M/uL Hemoglobin 11.9 g/dL Hematocrit 35.9 % Mean Corpuscular Volume 87.3 fL Mean Corpuscular Hemoglobin 29.0 pg Mean Corpuscular Hemoglobin Concent 33.1 g/dl Platelet Count 179 K/uL Mean Platelet Volume 9.9 fL Neutrophils (%) (Auto) 65.7 % Lymphocytes (%) (Auto) 21.7 % Monocytes (%) (Auto) 7.9 % Eosinophils (%) (Auto) 3.1 % Basophils (%) (Auto) 1.0 % Neutrophils # (Auto) 4.73 K/uL Lymphocytes # (Auto) 1.56 K/uL Monocytes # (Auto) 0.57 K/uL Eosinophils # (Auto) 0.22 K/uL Basophils # (Auto) 0.07 K/uL RDW Standard Deviation 44.7 fL RDW Coefficient of Variation 13.9 % Immature Granulocyte % (Auto) 0.6 % Immature Granulocyte # (Auto) 0.04 K/uL Sodium Level 142 mmol/L Potassium Level 4.7 mmol/L Chloride Level 113 mmol/L Carbon Dioxide Level 21 mmol/L Anion Gap 8.0 mmol/L Blood Urea Nitrogen 27 mg/dl Creatinine 1.90 mg/dl Est Creatinine Clear Calc Drug Dose 30.3 ml/min Estimated GFR () 39.1 Estimated GFR (Non- 33.7 BUN/Creatinine Ratio 14.0 Random Glucose 116 mg/dl Calcium Level 8.3 mg/dl Test 05/18/16 06:50 Bedside Glucose 112 mg/dl
[2016-05-18 11:00] VITALS: BP 160/84; PULSE 70; TEMP 36.9; O2SAT 97
--- NOTE | 2016-05-18 12:06 | Neurology Progress Notes ---
Neurology Progress Note Date of Service May 18, 2016. Thiago Chaves is a 75 year old male who presented with MS change and lethargy. He states he was getting sick about one week ago with a persistent productive cough. He was lethargic and having episodes of visual and tactile hallucinations.He has chronic exertional shortness of breath which is unchanged. He has not been eating or drinking well since he started getting sick. Currently he denies abdominal pain, N,V,D, fever chills night sweats, headache, back or neck pain or stiffness. He takes glipizide and reports he does not check his blood sugars. He reports that despite a poor appetite the past couple of days, he has continued to take his glipizide and all other medicines. His glucose was 69 upon arrival to the ED. His CT imaging showing pansinusitis. He is also found to be bradycardic in the 40s-50s (prior records show HR in the 50s). He is afebrile with normal WBC. He was given IVF and IV Zosyn in the ED. He states currently he is not feeling any better and has been tired since this all started. He states he has had no further hallucinations. He thinks he is being discharged to home today. denies CP, SOB, abdominal pain, weakness, numbness, tingling Objective Date Time Temp Pulse Resp B/P Pulse Ox O2 Delivery O2 Flow Rate FiO2 05/18/16 07:44 37.0 58 20 143/84 95 Room Air 79 128/68 83 129/71 05/18/16 07:30 Room Air 05/18/16 04:16 36.8 55 18 129/49 96 Room Air 05/18/16 04:00 Room Air 05/18/16 00:00 Room Air 05/17/16 23:27 36.4 49 18 149/67 96 Room Air 05/17/16 21:05 64 149/63 05/17/16 20:00 Room Air 05/17/16 19:40 36.7 54 18 142/55 95 Room Air 05/17/16 16:00 Room Air 05/17/16 15:59 36.6 62 18 133/60 95 Room Air 05/17/16 14:26 60 134/58 05/17/16 12:00 Room Air Last 24 Hours Test 05/17/16 16:15 05/17/16 20:24 05/18/16 06:22 05/18/16 06:50 Bedside Glucose 129 mg/dl 127 mg/dl 112 mg/dl White Blood Count 7.19 K/uL Red Blood Count 4.11 M/uL Hemoglobin 11.9 g/dL Hematocrit 35.9 % Mean Corpuscular Volume 87.3 fL Mean Corpuscular Hemoglobin 29.0 pg Mean Corpuscular Hemoglobin Concent 33.1 g/dl Platelet Count 179 K/uL Mean Platelet Volume 9.9 fL Neutrophils (%) (Auto) 65.7 % Lymphocytes (%) (Auto) 21.7 % Monocytes (%) (Auto) 7.9 % Eosinophils (%) (Auto) 3.1 % Basophils (%) (Auto) 1.0 % Neutrophils # (Auto) 4.73 K/uL Lymphocytes # (Auto) 1.56 K/uL Monocytes # (Auto) 0.57 K/uL Eosinophils # (Auto) 0.22 K/uL Basophils # (Auto) 0.07 K/uL RDW Standard Deviation 44.7 fL RDW Coefficient of Variation 13.9 % Immature Granulocyte % (Auto) 0.6 % Immature Granulocyte # (Auto) 0.04 K/uL Sodium Level 142 mmol/L Potassium Level 4.7 mmol/L Chloride Level 113 mmol/L Carbon Dioxide Level 21 mmol/L Anion Gap 8.0 mmol/L Blood Urea Nitrogen 27 mg/dl Creatinine 1.90 mg/dl Est Creatinine Clear Calc Drug Dose 30.3 ml/min Estimated GFR () 39.1 Estimated GFR (Non- 33.7 BUN/Creatinine Ratio 14.0 Random Glucose 116 mg/dl Calcium Level 8.3 mg/dl Test 05/18/16 10:36 05/18/16 11:10 Bedside Glucose 143 mg/dl Imaging: no new imaging Exam: Physical Exam: Constitutional: appearance nourished, healthy and normal Ears, Nose, Mouth and Throat: mucous membranes moist, no injection and skin normal, eyes normal Cardiovascular: normal S-1 and S-2 and regular rate and rhythm Respiratory: clear to auscultation (CTA) and no rales, rhonchi or wheeze Musculoskeletal: no peripheral edema Skin: no stigmata of neurocutaneous disease noted and normal and intact Eyes: extraocular muscles intact (EOMI) and pupils equal, round and reactive to light (PERRL) NEUROLOGIC EXAMINATION: Mental status: Alert and interactive Oriented to full date and location Oriented to person Speech fluent with no evidence of aphasia Cranial Nerves smile eye brow raise symmetric Coordination: finger to nose with no bi pass no tremor Gait/Stance: Posture sitting bed side able to stand without assistance 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, hip flex plantar flex ext bilaterally all 5/5 Current Inpatient Medications Medications (Trade) Dose Ordered Sig/Gato Route Start Time Stop Time Status Last Admin Dose Admin Heparin Sodium (Porcine) 5000 unit 5,000 unit Q12 SQ 05/15/16 21:00 06/14/16 20:59 05/18/16 07:47 5,000 UNIT Sodium Chloride (Nss 1000ml) 1,000 ml @ 80 mls/hr [id number] IV 05/15/16 15:42 06/14/16 15:41 05/18/16 04:57 80 MLS/HR Acetaminophen (Tylenol Tab) 650 mg Q4H PRN PO 05/15/16 15:45 06/14/16 15:44 05/15/16 21:20 650 MG Ondansetron HCl (Zofran Inj) 4 mg Q6H PRN IV 05/15/16 15:45 06/14/16 15:44 Allopurinol (Zyloprim Tab) 100 mg DAILY PO 05/16/16 09:00 06/15/16 08:59 05/18/16 07:40 100 MG Amlodipine Besylate (Norvasc Tab) 10 mg QAM PO 05/16/16 09:00 06/15/16 08:59 05/18/16 07:40 10 MG Aspirin (Ecotrin Tab) 81 mg QAM PO 05/16/16 09:00 06/15/16 08:59 05/18/16 07:40 81 MG Cholecalciferol (Vitamin D Tab) 1,000 inter.unit DAILY PO 05/16/16 09:00 06/15/16 08:59 05/18/16 07:38 1,000 INTER.UNIT Clopidogrel Bisulfate (plAVix TAB) 75 mg QAM PO 05/16/16 09:00 06/15/16 08:59 05/18/16 07:40 75 MG Losartan Potassium (coZAAR TAB) 100 mg QAM PO 05/16/16 09:00 06/15/16 08:59 05/18/16 07:39 100 MG Ropinirole HCl (Requip Tab) 2 mg HS PO 05/15/16 21:00 06/14/16 20:59 05/17/16 21:08 2 MG Simvastatin (Zocor Tab) 20 mg QAM PO 05/16/16 09:00 06/15/16 08:59 05/18/16 07:51 20 MG Pantoprazole Sodium (Protonix Tab) 40 mg QAM PO 05/16/16 09:00 06/15/16 08:59 05/18/16 07:40 40 MG Miscellaneous (Iv Fluids Completed) 1 ea PRN PRN N/A 05/15/16 19:15 05/15/17 19:14 Gabapentin (Neurontin Tab) 800 mg TID PO 05/16/16 21:00 06/15/16 20:59 05/18/16 07:39 800 MG Doxycycline Hyclate 100 mg 100 mg BID PO 05/16/16 21:00 05/23/16 20:59 05/18/16 07:41 100 MG Ceftriaxone Sodium/Dextrose (Rocephin Inj/ Dextrose Add-Edcouch 50ML) 50 ml @ 100 mls/hr Q24H IV 05/16/16 17:00 05/23/16 16:44 05/17/16 16:41 100 MLS/HR Isosorbide Mononitrate (Imdur Ext Rel Tab) 60 mg QAM PO 05/17/16 11:00 06/16/16 10:59 05/18/16 07:41 60 MG Hydralazine HCl (Apresoline Tab) 10 mg TID PO 05/17/16 14:00 06/16/16 13:59 05/18/16 07:39 10 MG Lactobacillus Acidophilus (Floranex Tab) 4 tab TIDM PO 05/17/16 16:45 06/16/16 16:44 05/18/16 07:38 4 TAB Impression 75 year old male UR illness x 1 week and hallucinations Plan 1. seems at baseline not disoriented- confirmed by family yesterday no family in room today 2. cough is less pronounced today 3. electrolytes corrected 4. MRI without contrast ordered due to renal function to r/o stroke or other structural issues- no acute findings. 5. EEG -r/o seizures- will need an out patient EEG 48 hours to see if the episode correlate with the abnormal pattern on EEG- 6. would not start AEM at this time will wait for out patient work up 7. gabapentin level pending- will need to see if high due to renal function 8. will see in our office once 48 hour EEG is completed I have discussed above patient with Dr Wendy Vera, neurology Discussed with Wendy Hernandez reviewed Dr Webster's sign-off note. RICK Vera MD
[2016-05-18 14:40] LABS: LYME DISEASE AB IGG NEG (NEG); LYME DISEASE AB IGM NEG (NEG)
--- NOTE | 2016-05-18 14:40 | Progress Note ---
Internal Med Progress Note Date of Service: May 18, 2016. Provider Documentation: SUBJECTIVE: Patient is sitting in his bed in no apparent distress. Awake and tries to answer my questions well. " I feel much better today." Still has some sinus pressure. Better and less BMs. Denies any hallucinations today. OBJECTIVE: Vital Signs-as noted below Examination: General Appearance: Alert/Awake and is in no apparent distress Head: normocephalic Eyes: normal inspection ENT: hearing grossly normal, Some mild B/L Sinus tenderness. Neck: supple, Central trachea, no JVD Respiratory/Chest: no respiratory distress, B/L almost clear to auscultation. Cardiovascular: no edema, + bradycardia Abdomen/GI: normal bowel sounds, non tender, soft Extremities/Musculoskeletal: normal inspection, no calf tenderness Neurologic/Psych: no motor/sensory deficits, alert, normal mood/affect, oriented x 3 Skin: normal color, warm/dry Lab data as noted below. ASSESSMENT & PLAN: CHEST CT WITHOUT CONTRAST IMPRESSION: 1. Moderate abscess chronic change and ectasia of the thoracic aorta. Maximal diameter of ascending thoracic aorta 3.5 cm. Lungs are clear. MRI Brain Significant mucosal thickening of the ethmoid and maxillary sinuses. IMPRESSION: 1. Atrophy. 2. Chronic small vessel change. 3. No acute ischemic process. 4. Considerable mucosal thickening of the maxillary and ethmoid sinuses with associated air-fluid levels. CT SCAN OF THE BRAIN WITHOUT IV CONTRAST FINDINGS: Brain parenchyma: There are age-related involutional changes noting moderate patchy subcortical and periventricular microangiopathic change. There is no hemorrhage, mass effect, or evidence of acute territorial ischemia by CT criteria. Maxwell-white matter is preserved. No extra-axial fluid collection is seen. Ventricles, sulci, cisterns: Prominent secondary to involutional change. Intracranial vasculature: There is atherosclerotic calcification of the cavernous carotid and vertebral arteries. Calvarium: Unremarkable. Sinuses and mastoids: There is moderate mucosal thickening with large air-fluid levels in the maxillary antra. Moderate mucosal thickening is also seen throughout the ethmoid sinuses and in the left sphenoid sinus. Mild mucosal thickening is present within the frontal and right sphenoid sinuses. The mastoid air cells are well pneumatized. Orbits: The bony orbits are grossly intact. IMPRESSION: 1. There is no hemorrhage, mass effect, or evidence of acute territorial ischemia by CT criteria. 2. Pansinusitis as above. ALTERED MENTAL STATUS, LETHARGY, HALLUCINATIONS: Resolved. Remains stable and afebrile. Patient presenting with one week of productive cough and lethargy/ hallucinations over the past two days -Influenza screen is negative -Gentle IVF -Patient found to have pansinusitis on CT scan - glucose noted to be 69 on labs - patient reports he does not check his blood sugars and has continued to take glipizide despite poor appetite the past 2 days -Considering symptomatic bradycardia - HR noted to be in the 40s-50s (per prior records HR has run in the 50s), BP stable - hold atenolol and monitor in tele -He is already on dual antiplatelet therapy and statin Pansinusitis: s/p Zosyn in ED. Do not suspect sepsis - afebrile, no leukocytosis -Continue Doxycycline (day # 4) & Rocephin (day # 3). Will change to Augmentin upon discharge. Diarrhea: C. Diff.is negative. -Added Lactobacillus Bradycardia: HR is improving. -Cardiology evaluation reviewed. Thanks for input -Troponin X 3 is normal Hypertension: BP controlled, continue amlodipine and losartan -Holding atenolol as above, hold HCTZ while giving IVF CAD S/P CABG: No acute cardiac symptoms. -Continue ASA, Plavix, statin -Holding beta kiersten due to bradycardia Diabetes Type II: HbA1c is 6.4 in june 2015. Needs to be repeated. -Holding glipizide, check BSG -Monitor for hypoglycemia as above History PAD: Stable. -Continue ASA, Plavix CKD Stage IV: Baseline creat runs in the low 2's -Continue monitoring GFR -Avoid any Nephrotoxin DVT Prophylaxis: SQ Heparin Disposition: Discharge home later today. Follow up with PCP on 05/25/2016 @ 11.10 AM. Follow up with Cardiology as per their advice. Vital Signs: Date Time Temp Pulse Resp B/P Pulse Ox O2 Delivery O2 Flow Rate FiO2 05/18/16 12:00 Room Air 05/18/16 11:00 36.9 70 20 160/84 97 Room Air 05/18/16 07:44 37.0 58 20 143/84 95 Room Air 79 128/68 83 129/71 05/18/16 07:30 Room Air 05/18/16 04:16 36.8 55 18 129/49 96 Room Air 05/18/16 04:00 Room Air 05/18/16 00:00 Room Air 05/17/16 23:27 36.4 49 18 149/67 96 Room Air 05/17/16 21:05 64 149/63 05/17/16 20:00 Room Air 05/17/16 19:40 36.7 54 18 142/55 95 Room Air 05/17/16 16:00 Room Air 05/17/16 15:59 36.6 62 18 133/60 95 Room Air Lab Results: Results Past 24 Hours Test 05/17/16 16:15 05/17/16 20:24 05/18/16 06:22 05/18/16 06:50 Range/Units Bedside Glucose 129 127 112 70-99 mg/dl White Blood Count 7.19 4.8-10.8 K/uL Red Blood Count 4.11 4.7-6.1 M/uL Hemoglobin 11.9 14.0-18.0 g/dL Hematocrit 35.9 42-52 % Mean Corpuscular Volume 87.3 80-100 fL Mean Corpuscular Hemoglobin 29.0 25-34 pg Mean Corpuscular Hemoglobin Concent 33.1 32-36 g/dl Platelet Count 179 130-400 K/uL Mean Platelet Volume 9.9 7.4-10.4 fL Neutrophils (%) (Auto) 65.7 % Lymphocytes (%) (Auto) 21.7 % Monocytes (%) (Auto) 7.9 % Eosinophils (%) (Auto) 3.1 % Basophils (%) (Auto) 1.0 % Neutrophils # (Auto) 4.73 1.4-6.5 K/uL Lymphocytes # (Auto) 1.56 1.2-3.4 K/uL Monocytes # (Auto) 0.57 0.11-0.59 K/uL Eosinophils # (Auto) 0.22 0-0.5 K/uL Basophils # (Auto) 0.07 0-0.2 K/uL RDW Standard Deviation 44.7 36.4-46.3 fL RDW Coefficient of Variation 13.9 11.5-14.5 % Immature Granulocyte % (Auto) 0.6 % Immature Granulocyte # (Auto) 0.04 0.00-0.02 K/uL Sodium Level 142 136-145 mmol/L Potassium Level 4.7 3.5-5.1 mmol/L Chloride Level 113 98-107 mmol/L Carbon Dioxide Level 21 21-32 mmol/L Anion Gap 8.0 3-11 mmol/L Blood Urea Nitrogen 27 7-18 mg/dl Creatinine 1.90 0.60-1.40 mg/dl Est Creatinine Clear Calc Drug Dose 30.3 ml/min Estimated GFR () 39.1 Estimated GFR (Non- 33.7 BUN/Creatinine Ratio 14.0 10-20 Random Glucose 116 70-99 mg/dl Calcium Level 8.3 8.5-10.1 mg/dl Test 05/18/16 10:36 05/18/16 11:10 Range/Units Bedside Glucose 143 70-99 mg/dl Microbiology Results 05/17/16 C.difficile Toxin B Gene (PCR) - Final, Complete No C. difficile toxin B gene detected
[2016-05-18] MEDS ORDERED: LCTX PO (14:44)
[2016-05-18] MEDS ORDERED: AMOX875T PO (14:44)
[2016-05-18] MEDS ORDERED: FLUT0.15 INTNAS (14:44)
[2016-05-18] MEDS ORDERED: HYDR12.56 PO (14:44)
[2016-05-18] MEDS ORDERED: IMDSR60 PO (14:44)
--- NOTE | 2016-05-18 14:46 | Discharge Instructions ---
Discharge Instructions Admission Reason for Admission: Altered Mental Status Discharge Discharge Diagnosis / Problem: Acute Sinusitis Discharge Goals Goal(s): Decrease discomfort, Improve function, Increase independence, Improve disease control, Improve nutritional status, Learn about illness, Diagnostic testing, Therapeutic intervention Activity Recommendations Activity Limitations: resume your previous activity (As Tolerated folollowibng fall precautions.) Lifting Limitations: none Exercise/Sports Limitations: none May Resume Sexual Activity: when tolerated Shower/Bathe: no limitations Driving or Machine Use: no limitations . Instructions / Follow-Up Instructions / Follow-Up Take all the medications as direcetd. May try steam inhalations Follow dietary advice. Monitor your blood sugar closely. Follow up with PCP on 05/25/2016 @ 11.10 AM. Follow up with Cardiology as per their advice. Current Hospital Diet Patient's current hospital diet: AHA Diet (Heart Healthy), Diabetes Type 2 Diet Discharge Diet Recommended Diet: AHA Diet (Heart Healthy), Diabetes Type 2 Diet Pending Studies Studies pending at discharge: no Laboratory Results Hemoglobin A1c Test 05/15/16 13:45 Range/Units Estimated Average Glucose 128 mg/dl Hemoglobin A1c 6.1 H 4.5-5.6 % Medical Emergencies . Who to Call and When: Medical Emergencies: If at any time you feel your situation is an emergency, please call 911 immediately. . Non-Emergent Contact Non-Emergency issues call your: Primary Care Provider . . "Provider Documentation" section prepared by Jonny Arzola. VTE Core Measure Inpt VTE Proph given/why not?: Unfractionated heparin SQ
--- NOTE | 2016-05-18 14:49 | Discharge Summary ---
Discharge Summary Admission Date: May 15, 2016 at 15:53 Discharge Date: May 18, 2016 Discharge Disposition: Home Principal Diagnosis: Altered mental Status (Resolved) Symptomatic Bradycardia (Resolved) Acute Sinusitis Diarrhea Secondary Diagnoses/Problems: History Hypertension History CAD S/P CABG Diabetes Type II CKD Stage IV History PAD Procedures: MRI Brain CT Head CT Chest Vaccinations: NONE Consultations: Cardiology Neurology Pending Studies/Follow-Up: Follow up BMP in one week. Medication Reconciliation New Medications: Amoxicillin & Pot Clavulanate (Augmentin 875-125 mg) 1 Tab Tab 875 MG PO BID, #14 TAB Fluticasone Propionate (Nasal) (Flonase Allergy Relief) 50 Mcg/Act Spr 2 PUFFS INTNAS BID, #1 Hydrochlorothiazide (Hctz) 12.5 Mg Cap 12.5 MG PO QD@08, #30 TAB Lactobacillus Acidophilus (Floranex) 1 Tab Tab 1 TAB PO TID, #21 TAB Isosorbide Mononitrate (Isosorbide Mononitrate ER) 60 Mg Tab 60 MG PO QAM, #90 TAB Continued Medications: Allopurinol (Zyloprim) 100 Mg Tab 1 TAB PO DAILY for 30 Days, #30 TAB 5 Refills Amlodipine (Norvasc) 10 Mg Tab 10 MG PO QAM, TAB Aspirin (Aspirin Ec) 81 Mg Tab 81 MG PO QAM Cholecalciferol (Vitamin D) 1,000 Unit Tab 1000 INTER.UNIT PO DAILY Clopidogrel (Plavix) 75 Mg Tab 75 MG PO QAM, TAB Gabapentin (Gabapentin) 600 Mg Tab 2 TABS PO TID Glipizide (Glipizide Er) 5 Mg Tab 5 MG PO QAM for 30 Days, #30 TAB 5 Refills Losartan Potassium (Cozaar) 100 Mg Tab 100 MG PO QAM, TAB Omeprazole (Omeprazole) 20 Mg Tab 1 TAB PO DAILY for 90 Days, #90 TAB 1 Refill Oxycodone Ir (Roxicodone Ir) 5 Mg Tab 5 MG PO Q6H PRN for Pain, TAB Ropinirole (Requip) 2 Mg Tab 2 MG PO HS, TAB Simvastatin (Zocor) 20 Mg Tab 20 MG PO QAM, TAB Discontinued Medications: Atenolol (Tenormin) 25 Mg Tab 25 MG PO QAM, TAB Hydrochlorothiazide (Hctz) 25 Mg Tab 25 MG PO QAM, TAB Admission Information HPI (per Admitting provider): 75 year old male who presents to the ER with reports of altered mental status and lethargy. Patient reports he started getting sick about one week ago with a persistent productive cough. Over the past two days patient has been lethargic and having episodes of visual and tactile hallucinations. He also reports episodes of dizziness. He denies lightheadedness or syncopal events. He denies fever and chills. No chest pain. He reports chronic exertional shortness of breath which is unchanged. He has had a poor appetite but denies abdominal pain , nausea, vomiting, or diarrhea. He denies urinary symptoms. Of note, patient takes glipizide and reports he does not check his blood sugars. He reports that despite a poor appetite the past couple of days, he has continued to take his glipizide and all other medicines. Patient is currently at his baseline mental status. In the ER, patient's glucose is 69. Head CT is showing pansinusitis. He is also found to be bradycardic in the 40s-50s (prior records show HR in the 50s ). He is afebrile with normal WBC. He was given IVF and IV Zosyn. Physical Exam (per Admitting): General Appearance: no apparent distress Head: normocephalic Eyes: normal inspection ENT: hearing grossly normal Neck: supple, no JVD Respiratory/Chest: no respiratory distress, + rhonchi Cardiovascular: no edema, + bradycardia Abdomen/GI: normal bowel sounds, non tender, soft Extremities/Musculoskelatal: normal inspection, no calf tenderness Neurologic/Psych: no motor/sensory deficits, alert, normal mood/affect, oriented x 3 Skin: normal color, warm/dry Hospital Course CHEST CT WITHOUT CONTRAST IMPRESSION: 1. Moderate abscess chronic change and ectasia of the thoracic aorta. Maximal diameter of ascending thoracic aorta 3.5 cm. Lungs are clear. MRI Brain Significant mucosal thickening of the ethmoid and maxillary sinuses. IMPRESSION: 1. Atrophy. 2. Chronic small vessel change. 3. No acute ischemic process. 4. Considerable mucosal thickening of the maxillary and ethmoid sinuses with associated air-fluid levels. CT SCAN OF THE BRAIN WITHOUT IV CONTRAST FINDINGS: Brain parenchyma: There are age-related involutional changes noting moderate patchy subcortical and periventricular microangiopathic change. There is no hemorrhage, mass effect, or evidence of acute territorial ischemia by CT criteria. Maxwell-white matter is preserved. No extra-axial fluid collection is seen. Ventricles, sulci, cisterns: Prominent secondary to involutional change. Intracranial vasculature: There is atherosclerotic calcification of the cavernous carotid and vertebral arteries. Calvarium: Unremarkable. Sinuses and mastoids: There is moderate mucosal thickening with large air-fluid levels in the maxillary antra. Moderate mucosal thickening is also seen throughout the ethmoid sinuses and in the left sphenoid sinus. Mild mucosal thickening is present within the frontal and right sphenoid sinuses. The mastoid air cells are well pneumatized. Orbits: The bony orbits are grossly intact. IMPRESSION: 1. There is no hemorrhage, mass effect, or evidence of acute territorial ischemia by CT criteria. 2. Pansinusitis as above. ALTERED MENTAL STATUS, LETHARGY, HALLUCINATIONS: Resolved. Remains stable and afebrile. Patient presenting with one week of productive cough and lethargy/ hallucinations over the past two days -Influenza screen is negative -Gentle IVF -Patient found to have pansinusitis on CT scan - glucose noted to be 69 on labs - patient reports he does not check his blood sugars and has continued to take glipizide despite poor appetite the past 2 days -Considering symptomatic bradycardia - HR noted to be in the 40s-50s (per prior records HR has run in the 50s), BP stable - hold atenolol and monitor in tele -He is already on dual antiplatelet therapy and statin Pansinusitis: s/p Zosyn in ED. Do not suspect sepsis - afebrile, no leukocytosis -Continue Doxycycline (day # 4) & Rocephin (day # 3). Will change to Augmentin upon discharge. Diarrhea: C. Diff.is negative. -Added Lactobacillus Bradycardia: HR is improving. -Cardiology evaluation reviewed. Thanks for input -Troponin X 3 is normal Hypertension: BP controlled, continue amlodipine and losartan -Holding atenolol as above, hold HCTZ while giving IVF CAD S/P CABG: No acute cardiac symptoms. -Continue ASA, Plavix, statin -Holding beta kiersten due to bradycardia Diabetes Type II: HbA1c is 6.4 in june 2015. Needs to be repeated. -Holding glipizide, check BSG -Monitor for hypoglycemia as above History PAD: Stable. -Continue ASA, Plavix CKD Stage IV: Baseline creat runs in the low 2's -Continue monitoring GFR -Avoid any Nephrotoxin DVT Prophylaxis: SQ Heparin Disposition: Discharge home later today. Follow up with PCP on 05/25/2016 @ 11.10 AM. Follow up with Cardiology as per their advice. Total time spent on discharge = 40 minutes. This includes examination of the patient, discharge planning, medication reconciliation, and communication with other providers. Discharge Instructions Discharge Goals Goal(s): Decrease discomfort, Improve function, Increase independence, Improve disease control, Improve nutritional status, Learn about illness, Diagnostic testing, Therapeutic intervention Activity Recommendations Activity Limitations: resume your previous activity (As Tolerated folollowibng fall precautions.) Lifting Limitations: none Exercise/Sports Limitations: none May Resume Sexual Activity: when tolerated Shower/Bathe: no limitations Driving or Machine Use: no limitations . Instructions / Follow-Up Instructions / Follow-Up Take all the medications as direcetd. May try steam inhalations Follow dietary advice. Monitor your blood sugar closely. Follow up with PCP on 05/25/2016 @ 11.10 AM. Follow up with Cardiology as per their advice. Additional Copies To Angel Gonzalez M.D.
[2016-05-18 14:58] VITALS: BP 160/84; PULSE 70; TEMP 36.9; O2SAT 97
[2016-05-18] MEDS ORDERED: FLUTICASONE PROPIONATE NA SPR 16 GM BTL SCH (21:00)
== END 2016-05-18 16:45 | disposition home or self-care (01) ==
LOC: ENRESERVTM → ENRESERVDT → C.EDB 12:16 → INTOOBSV 15:43 → UNDOADMOB 15:43 → C.2T 15:43 → EDBEDREQ 15:53 → C.2T 05-16 07:21
PROVIDERS: ADMIT Hospitalist; ATTEND Emergency Medicine
DX: R41.82 Altered mental status, unspecified (principal); R00.1 Bradycardia, unspecified; J32.9 Chronic sinusitis, unspecified; I44.0 Atrioventricular block, first degree; R19.7 Diarrhea, unspecified; I45.10 Unspecified right bundle-branch block; E78.5 Hyperlipidemia, unspecified; H53.8 Other visual disturbances; I12.9 Hypertensive chronic kidney disease with stage 1 through stage 4 chronic kidney disease, or unspecified chronic kidney disease; I25.10 Atherosclerotic heart disease of native coronary artery without angina pectoris; I35.2 Nonrheumatic aortic (valve) stenosis with insufficiency; K21.9 Gastro-esophageal reflux disease without esophagitis; K40.90 Unilateral inguinal hernia, without obstruction or gangrene, not specified as recurrent; M10.9 Gout, unspecified; N17.9 Acute kidney failure, unspecified; N18.4 Chronic kidney disease, stage 4 (severe); Z87.891 Personal history of nicotine dependence

== ENCOUNTER 2019-06-19 13:45 | Inpatient (IN) ==
--- NOTE | 2019-06-19 14:16 | Emergency Department Note ---
History of Present Illness General Chief complaint: Chest Pain Stated complaint: CHEST PAIN Time Seen by Provider: 06/19/19 14:07 Source: patient Mode of arrival: ambulatory Limitations: no limitations History of Present Illness Maximum Pain Intensity: 1 This patient comes in as described above. He has been having chest pain frequently. He has a history of sounds like chronic angina that has been getting worse. He has occurred on a daily basis. He says it feels like his heart can explode when he gets it as a sharp pain primarily when he goes out side and does stuff when he comes back in and sits to relax it feels better he took 2 nitroglycerin today which seem to work and it went away and has minimal discomfort at present there is some associated shortness of breath. He said he had episode Saturday and Saturday where he said he felt really bad and should have come then. He has had some abdominal pain as well at times. No fall or trauma. No fever or chills. No travel. No nausea vomiting. No lower extremity pain or swelling. Home Medications Home Medications Medication Instructions Recorded Confirmed Type allopurinol [Zyloprim] 200 mg PO DAILY 06/19/19 06/19/19 History amlodipine [Norvasc] 5 mg PO BID 06/19/19 06/19/19 History aspirin [Aspirin Childrens] 81 mg PO DAILY 06/19/19 06/19/19 History atenolol 25 mg PO DAILY 06/19/19 06/19/19 History cholecalciferol (vitamin D3) 2,000 unit PO DAILY 06/19/19 06/19/19 History clopidogrel [Plavix] 75 mg PO QAM 06/19/19 06/19/19 History cyanocobalamin (vitamin B-12) 1,000 mcg PO DAILY 06/19/19 06/19/19 History gabapentin [Neurontin] 600 mg PO DAILY 06/19/19 06/19/19 History glipizide [Glucotrol XL] 5 mg PO DAILY 06/19/19 06/19/19 History isosorbide mononitrate 120 mg PO QAM 06/19/19 06/19/19 History losartan [Cozaar] 100 mg PO QAM 06/19/19 06/19/19 History magnesium chloride [Mag 64] 128 mg PO DAILY 06/19/19 06/19/19 History omeprazole 20 mg PO BID 06/19/19 06/19/19 History oxycodone [Roxicodone] 5 mg PO Q6H PRN 06/19/19 06/19/19 History ropinirole 2 mg PO HS 06/19/19 06/19/19 History simvastatin [Zocor] 20 mg PO HS 06/19/19 06/19/19 History Allergies Allergy/AdvReac Type Severity Reaction Status Date / Time No Known Allergies Allergy Unverified 06/19/19 15:29 Past Med/Surg History Medical History Aortic stenosis (Chronic) CAD (coronary artery disease) (Chronic) "CABG x 4" CKD (chronic kidney disease), stage IV (Chronic) DM type 2 (diabetes mellitus, type 2) (Chronic) Dyslipidemia (Chronic) GERD (gastroesophageal reflux disease) (Chronic) HTN (hypertension) (Chronic) PAD (peripheral artery disease) (Chronic) Surgical History History of back surgery (Chronic) History of carotid endarterectomy (Chronic) "right" History of cholecystectomy (Chronic) History of inguinal hernia repair (Chronic) History of rotator cuff surgery (Chronic) History of tonsillectomy and adenoidectomy (Chronic) Family History Brother Heart disease Mother Heart disease Social History Feels Safe at Home: Yes Smoking Status: Former smoker Hx Alcohol Use: Yes Alcohol Intake Frequency: Holidays/Special Occasions Immunizations: Past medical historycoronary artery disease/CABG. He is followed by Narayan Reyes. He says his last stress test was 6 months or so ago. Social historyhe does chew. He is and lives at home. Review of Systems A total of 10 systems reviewed and were otherwise negative Physical Exam Vital Signs Vital Signs - 24 hr 06/19/19 13:24 06/19/19 13:53 06/19/19 13:55 Temperature 36.6 C Temperature Source Oral Pulse Rate 57 L 52 L 55 L Pulse Rate from SpO2 Sensor 52 L 53 L Pulse Rhythm Regular Pulse Strength Normal Respiratory Rate 24 21 18 Respiratory Effort / Characteristics Non-Labored Respiratory Depth Normal Respiratory Pattern Regular Blood Pressure 143/52 H 143/52 H Blood Pressure Mean 82 71 Blood Pressure Position Lying Pulse Oximetry 96 97 96 Oxygen Delivery Method Room Air Sepsis Recent Fever Within 48 Hours No Sepsis New/Unexplained Change in Mental Status No Sepsis Action Taken by Nursing No Action Required 06/19/19 14:00 06/19/19 14:15 06/19/19 14:17 Temperature Temperature Source Pulse Rate 57 L 52 L Pulse Rate from SpO2 Sensor 56 L 53 L Pulse Rhythm Pulse Strength Respiratory Rate 20 16 Respiratory Effort / Characteristics Respiratory Depth Respiratory Pattern Blood Pressure 160/64 H 181/75 H Blood Pressure Mean 108 100 Blood Pressure Position Pulse Oximetry 97 96 Oxygen Delivery Method Room Air Sepsis Recent Fever Within 48 Hours Sepsis New/Unexplained Change in Mental Status Sepsis Action Taken by Nursing 06/19/19 14:30 06/19/19 14:45 06/19/19 14:56 Temperature Temperature Source Pulse Rate 49 L 58 L 56 L Pulse Rate from SpO2 Sensor 49 L 58 L 53 L Pulse Rhythm Pulse Strength Respiratory Rate 2 L 27 H 9 L Respiratory Effort / Characteristics Respiratory Depth Respiratory Pattern Blood Pressure 184/76 H 154/59 H Blood Pressure Mean 112 82 Blood Pressure Position Pulse Oximetry 97 96 96 Oxygen Delivery Method Sepsis Recent Fever Within 48 Hours Sepsis New/Unexplained Change in Mental Status Sepsis Action Taken by Nursing 06/19/19 15:00 06/19/19 15:02 06/19/19 15:15 Temperature Temperature Source Pulse Rate 53 L 50 L 49 L Pulse Rate from SpO2 Sensor 52 L 49 L 49 L Pulse Rhythm Pulse Strength Respiratory Rate 21 18 14 Respiratory Effort / Characteristics Respiratory Depth Respiratory Pattern Blood Pressure 155/59 H 161/57 H Blood Pressure Mean 88 82 Blood Pressure Position Pulse Oximetry 96 96 97 Oxygen Delivery Method Sepsis Recent Fever Within 48 Hours Sepsis New/Unexplained Change in Mental Status Sepsis Action Taken by Nursing 06/19/19 15:30 06/19/19 15:39 06/19/19 15:45 Temperature Temperature Source Pulse Rate 52 L 61 55 L Pulse Rate from SpO2 Sensor 52 L 52 L 54 L Pulse Rhythm Pulse Strength Respiratory Rate 15 25 H 19 Respiratory Effort / Characteristics Respiratory Depth Respiratory Pattern Blood Pressure 163/60 H Blood Pressure Mean 94 Blood Pressure Position Pulse Oximetry 96 96 97 Oxygen Delivery Method Sepsis Recent Fever Within 48 Hours Sepsis New/Unexplained Change in Mental Status Sepsis Action Taken by Nursing 06/19/19 16:00 Temperature Temperature Source Pulse Rate 49 L Pulse Rate from SpO2 Sensor 49 L Pulse Rhythm Pulse Strength Respiratory Rate 19 Respiratory Effort / Characteristics Respiratory Depth Respiratory Pattern Blood Pressure 160/57 H Blood Pressure Mean 72 Blood Pressure Position Pulse Oximetry 96 Oxygen Delivery Method Sepsis Recent Fever Within 48 Hours Sepsis New/Unexplained Change in Mental Status Sepsis Action Taken by Nursing General: Well developed well nourished older male who appears in no acute distress, breathing comfortably on room air. Normal speech HEENT: Normal cephalic atraumatic. Pupils are equal round and reactive to light. Extraocular movements are intact. Oropharynx is pink with moist mucous membranes. No swelling of the mouth lips or tongue. Neck: Supple with a midline trachea. No meningeal signs or stiffness, no JVD or bruits. No Stridor. Chest: Clear to auscultation bilaterally. No wheezes or rhonchi. No increased work of breathing. Heart: Regular rate and rhythm without murmurs or gallops. Abdomen: Soft nontender, nondistended without rebound guarding or rigidity. Extremities: No cyanosis clubbing or edema. No calf tenderness or assymetry Spine/Back. Non tender to palpation. No CVA tenderness Skin: Good turgor without rashes. Neurologic exam: Cranial nerves two through 12 are intact. Motor and sensation are intact and symmetrical throughout. Course Administered Medications Heparin Sodium/Dextrose (Heparin Sodium/Dextrose) 25,000 units in 500 mls @ 24 mls/hr IV .[id number] [facility]; Protocol Stop: 07/19/19 16:44 Last Admin: 06/19/19 18:21 Dose: 1,200 units/hr, 24 mls/hr Documented by: [id number] Cosigned by: [id number] Nitroglycerin (Nitro-Bid 2%) 1 inch EXT Q6H [facility] Stop: 07/19/19 16:44 Last Admin: 06/19/19 17:33 Dose: 1 inch Documented by: [id number] Discontinued Medications Aspirin (Aspirin) 324 mg PO NOW [facility] Stop: 06/19/19 14:18 Last Admin: 06/19/19 14:41 Dose: 324 mg Documented by: [id number] Heparin Sodium (Porcine) (Heparin Iv Bolus) Confirm Administered Dose 10,000 units .ROUTE .STK-MED ONE Stop: 06/19/19 18:09 Last Admin: 06/19/19 18:26 Dose: Not Given Documented by: [id number] Heparin Sodium (Porcine) (Heparin Iv Bolus) 5,000 units IV NOW STA Stop: 06/19/19 18:10 Last Admin: 06/19/19 18:21 Dose: 5,000 units Documented by: [id number] Cosigned by: [id number] Heparin Sodium/Dextrose () 1 ea IV NOW STA; Protocol Stop: 06/19/19 16:40 Last Admin: 06/19/19 18:25 Dose: Not Given Documented by: [id number] Morphine Sulfate (Morphine Sulfate) 2 mg IV NOW STA Stop: 06/19/19 16:31 Last Admin: 06/19/19 17:34 Dose: 2 mg Documented by: [id number] Nitroglycerin (Nitrostat) 0.4 mg SL NOW Stop: 06/19/19 15:38 Last Admin: 06/19/19 15:46 Dose: 0.4 mg Documented by: [id number] Ondansetron HCl (Zofran) 4 mg IV NOW STA Stop: 06/19/19 16:31 Last Admin: 06/19/19 17:33 Dose: 4 mg Documented by: [id number] Medical Decision Making Differential Diagnosis Cardiac disease, unstable angina, VA, electrolyte or metabolic abnormalities, CHF, PE, musculoskeletal, GERD, infection Medical Records Attestation: I reviewed the patient's medical records. Home Medications Current Medication List: was personally reviewed by me Laboratory Data Attestation: I reviewed the patient's lab results. Result diagrams: 06/19/19 13:15 06/19/19 13:15 Lab Results 06/19/19 06/19/19 06/19/19 Range/Units 13:15 13:15 13:15 WBC 7.38 (4.8-10.8) K/uL RBC 3.42 L (4.7-6.1) M/uL Hgb 10.6 L (14.0-18.0) g/dL Hct 32.1 L (42-52) % MCV 93.9 (80-100) fL MCH 31.0 (25-34) pg MCHC 33.0 (32-36) g/dL RDW Std Deviation 49.5 H (36.4-46.3) fL RDW Coeff of Maynor 14.6 H (11.5-14.5) % Plt Count 214 (130-400) K/uL MPV 11.3 H (7.4-10.4) fL Immature Gran % (Auto) 0.7 % Neut % (Auto) 58.1 % Lymph % (Auto) 30.4 % [place] % (Auto) 7.6 % Eos % (Auto) 2.4 % Baso % (Auto) 0.8 % Immature Gran # (Auto) 0.05 H (0.00-0.02) K/uL Neut # (Auto) 4.29 (1.4-6.5) K/uL Lymph # (Auto) 2.24 (1.2-3.4) K/uL [place] # (Auto) 0.56 (0.11-0.59) K/uL Eos # (Auto) 0.18 (0-0.5) K/uL Baso # (Auto) 0.06 (0-0.2) K/uL PT 10.8 (9.0-12.0) Seconds INR 1.0 (0.9-1.1) APTT 28.8 (21.0-31.0) Seconds PTT Ratio 1.0 Sodium 139 (136-145) mmol/L Potassium 4.9 (3.5-5.1) mmol/L Chloride 114 H (98-107) mmol/L Carbon Dioxide 19 L (21-32) mmol/L Anion Gap 6.0 (3-11) BUN 38 H (7-18) mg/dl Creatinine 2.91 H (0.6-1.4) mg/dl Est Cr Clr Drug Dosing 18.2 ml/min Est GFR ( Amer) 22.9 Est GFR (Non-Af Amer) 19.7 BUN/Creatinine Ratio 13.0 (10-20) Glucose 149 H (70-99) mg/dl Calcium 8.6 (8.5-10.1) mg/dl Total Bilirubin 0.4 (0.2-1) mg/dl AST 15 (15-37) U/L ALT 22 (12-78) U/L Alkaline Phosphatase 111 (45-117) U/L Troponin I 0.065 H* (0-0.045) ng/ml Total Protein 6.7 (6.4-8.2) gm/dl Albumin 3.0 L (3.4-5.0) gm/dl Globulin 3.7 (2.5-4.0) gm/dl Albumin/Globulin Ratio 0.8 L (0.9-2) Lipase 272 (73-393) U/L ECG Data Attestation: I personally reviewed and interpreted this ECG as follows: Indication: + chest pain Rate (beats per minute): 51 Rhythm: + sinus bradycardia ECG Intervals/blocks: + First degree AV block and + Right Bundle branch block ECG Scenic: + Normal ECG ST segments: + Normal ST segments ECG Findings: no PACs and no PVCs Comparison ECG Date: from (05/17/16) Change: no significant change Additional Comments: EKG #2: Sinus bradycardia 52 as the rate. First-degree AV block. Right bundle branch block. No change compared to EKG #1 Prescription Drug Monitoring Prescription Drug Findings: Chest Xray- No acute finding Blood Pressure Blood Pressure Findings: Elevated blood pressure Blood Pressure Disposition: further management by hospitalist [facility] Narrative This patient comes in as described above. He was placed in room C 11. He is here for treatment and evaluation chest pain. He has history of angina but the pattern is gotten worse. At present he feels good with minimal pain he was given aspirin 324 mg chewable. His initial EKG does not show any acute STEMI changes. I ordered a full cardiac work-up which included cardiac enzymes and chest x-ray. He was reassessed frequently. EKG does not show any acute ischemic changes when compared to old. He has no acute electrolyte or metabolic abnormalities. His troponin was mildly elevated at 0.06. I did a second EKG as he started having a little more pain and there is no change compared to the first. He was given additional nitro here without change he was given morphine 2 mg IV and Zofran 4 mg IV. He was reassessed frequently. He will be admitted for further cardiac evaluation and work-up. Cardiac monitoring: The patient was placed on a threat monitoring analyst due to chest pain. He had a sinus bradycardia at 52 and was kept on the monitor during his work-up Impression & Plan Chest pain, CAD (coronary artery disease), Bradycardia, Elevated troponin I level, Diabetes Discharge Plan Visit Data *Final* Discharge Date/Time: 06/19/19 17:58 Chief Complaint: Chest Pain Stated Complaint: CHEST PAIN ED Provider: Riki Guillermo Discharge Problem: Chest pain, CAD (coronary artery disease), Bradycardia, Elevated troponin I level, Diabetes Patient Disposition: Admitted As Inpatient Discharge Instructions Interventions: ED Discharge Assessment Last Done: 06/19/19 17:58 Discharge Problem: Chest pain Qualifiers: Chest pain type: precordial pain Qualified Code(s): R07.2 - Precordial pain CAD (coronary artery disease) Qualifiers: Coronary Disease-Associated Artery/Lesion type: unspecified vessel or lesion type [place] vs. transplanted heart: [place] heart Associated angina: with unstable angina Qualified Code(s): I25.110 - Atherosclerotic heart disease of [place] coronary artery with unstable angina pectoris Diabetes Qualifiers: Diabetes mellitus type: type 2 Diabetes mellitus watermelon inspector insulin use: with watermelon inspector use Diabetes mellitus complication status: without complication Qualified Code(s): E11.9 - Type 2 diabetes mellitus without complications
[2019-06-19] MEDS ORDERED: ASPIRIN CHEW 324 MG PO STA (14:17)
[2019-06-19 14:30] LABS: Basophils # (auto) 0.06 K/uL (0-0.2); Basophils % (auto) 0.8 %; Eosinophils # (auto) 0.18 K/uL (0-0.5); Eosinophils % (auto) 2.4 %; Hematocrit (blood only) 32.1 % (42-52); Hemoglobin 10.6 g/dL (14.0-18.0); Immature Granulocytes # (auto) 0.05 K/uL (0.00-0.02); Immature Granulocytes % (auto) 0.7 %; Lymphocytes # (auto) 2.24 K/uL (1.2-3.4); Lymphocytes % (auto) 30.4 %; Mean Corpuscular Volume 93.9 fL (80-100); Mean Platelet Volume 11.3 fL (7.4-10.4); Monocytes # (auto) 0.56 K/uL (0.11-0.59); Monocytes % (auto) 7.6 %; Neutrophils # (auto) 4.29 K/uL (1.4-6.5); Neutrophils % (auto) 58.1 %; Platelet Count 214 K/uL (130-400); RDW Coefficient of Variation 14.6 % (11.5-14.5); RDW Standard Deviation 49.5 fL (36.4-46.3); Red Blood Count 3.42 M/uL (4.7-6.1); White Blood Count 7.38 K/uL (4.8-10.8)
--- NOTE | 2019-06-19 14:31 | XRay Report ---
XR chest 1V portable CLINICAL HISTORY: 78 years-old Male presenting with Chest Pain. TECHNIQUE: Portable upright AP view of the chest was obtained. COMPARISON: 05/15/2016. FINDINGS: Median sternotomy wires and mediastinal surgical clips noted. Atherosclerosis of the aortic arch. Car diac silhouette mildly enlarged. There are vascular prominence. Heterogeneity of lung parenchyma. Ret icular lung markings at the lung bases. No large effusion or pneumothorax. Degenerative changes of th e thoracic spine. Upper abdomen normal. IMPRESSION: 1. Cardiomegaly with suspected volume overload. 2. Reticular opacities at the lung bases may relate to scarring or fibrosis. 3. Suspected underlying chronic lung disease, likely emphysema. ACT 112: Negative or not required by law. Electronically signed by: Angel Ferrell M.D. 06/19/2019 2:30 PM
[2019-06-19 14:39] LABS: Calcium 8.6 mg/dl (8.5-10.1); Creatinine Clr Calc Pharmacy 18.2 ml/min; Est GFR (African American) 22.9; Est GFR (Non-African American) 19.7; Potassium 4.9 mmol/L (3.5-5.1)
[2019-06-19 14:40] LABS: Partial Thromboplastin Time 28.8 Seconds (21.0-31.0); Prothrombin Time 10.8 Seconds (9.0-12.0)
[2019-06-19 15:20] LABS: Albumin Globulin Ratio 0.8 (0.9-2); Bilirubin,Total 0.4 mg/dl (0.2-1); Globulin 3.7 gm/dl (2.5-4.0); Total Protein 6.7 gm/dl (6.4-8.2); Troponin I 0.065 ng/ml (0-0.045)
[2019-06-19] MEDS ORDERED: NITROGLYCERIN SL 0.4 MG/TAB TAB SL STA (15:37)
[2019-06-19] MEDS ORDERED: MoRPHine SULFATE 2 MG/ML CARP IV STA (16:30)
[2019-06-19] MEDS ORDERED: ONDANSETRON INJ 2 MG/ML 2 ML VIAL IV STA (16:30)
--- NOTE | 2019-06-19 16:58 | Electrocardiogram Report ---
Test Reason : Blood Pressure : / mmHG Vent. Rate : 051 BPM Atrial Rate : 051 BPM P-R Int : 244 ms QRS Dur : 130 ms QT Int : 480 ms P-R-T Axes : 000 041 037 degrees QTc Int : 442 ms Sinus bradycardia with 1st degree A-V block Right bundle branch block Abnormal ECG When compared with ECG of 17-MAY-2016 06:27, [place] interval has increased Confirmed by Jag Vu ([id number]) on 06/19/2019 4:57:56 PM Referred By: Confirmed By:Jag Vu
--- NOTE | 2019-06-19 17:00 | Electrocardiogram Report ---
Test Reason : Blood Pressure : / mmHG Vent. Rate : 052 BPM Atrial Rate : 052 BPM P-R Int : 220 ms QRS Dur : 142 ms QT Int : 466 ms P-R-T Axes : -12 042 037 degrees QTc Int : 433 ms Sinus bradycardia with 1st degree A-V block Right bundle branch block Abnormal ECG When compared with ECG of 19-JUN-2019 13:54, (unconfirmed) No significant change was found Confirmed by Jag Vu ([id number]) on 06/19/2019 4:59:56 PM Referred By: Confirmed By:Jag Vu
[2019-06-19] MEDS: NITROGLYCERIN 2% OINTMENT 30GM TUBE EXT SCH (17:33)
--- NOTE | 2019-06-19 17:34 | Cardiology Consultation ---
Date of Consultation June 19, 2019 Assessment & Plan (1) CAD (coronary artery disease): (2) DM type 2 (diabetes mellitus, type 2): (3) GERD (gastroesophageal reflux disease): (4) Dyslipidemia: (5) HTN (hypertension): (6) CKD (chronic kidney disease), stage IV: (7) Aortic stenosis: (8) Chest pain: I would recommend hospital admission. The patient should have cardiac markers drawn. He should be placed on IV heparin and his dual antiplatelet therapy should be continued. His EKG has not changed and currently he is comfortable. I would not proceed with a cardiac catheterization unless the patient has a clinical change or if his cardiac markers elevate to the level of a non-STEMI. This patient has underlying kidney disease which increases his risk for a cardiac catheterization. I have discussed the case with Crystal bond from the hospitalist service. History of Present Illness History of Present Illness This is a 78-year-old male patient well-known to the cardiology service with a long history of arteriosclerotic vascular disease and previous coronary artery bypass surgery. He has been having chest pain for several months and was actually seen by Narayan Reyes in May who recommended a stress test. The patient never followed through. He states his chest pain continued off and on but this week has been worse. He actually took sublingual nitroglycerin today with minimal relief. He decided to present to the emergency department. He has had no progressive shortness of breath. No increased lower extremity edema. No orthopnea.His EKG shows a sinus rhythm with a right bundle branch block which is unchanged. His first troponin is borderline elevated. Past medical history: PAD (peripheral artery disease) ([facility]) Coronary atherosclerosis of artery bypass graft Type 2 diabetes mellitus with hemoglobin A1c goal of less than 8.0% ([facility]) DM TYPE 2 CAUSING RENAL DZ Stable angina ([facility]) Carotid disease, bilateral ([facility]) Carpal tunnel syndrome Esophageal reflux Generalized osteoarthritis DYSLIPIDEMIA, GOAL LDL BELOW 70 CORON ATHEROSCL [place] CORON VESSEL S/P carotid endarterectomy Memory loss Hypertension goal BP (blood pressure) < 130/80 Aortic valve stenosis Anemia Restless legs syndrome (RLS) History of shingles Neurogenic claudication Gout of foot Type 2 diabetes mellitus with peripheral vascular disease ([facility]) Controlled type 2 diabetes mellitus with stage 4 chronic kidney disease, without long-term current use of insulin ([facility]) Secondary hyperparathyroidism of renal origin ([facility]) History of colon polyps Dementia without behavioral disturbance ([facility]) Allergies Allergy/AdvReac Type Severity Reaction Status Date / Time No Known Allergies Allergy Unverified 06/19/19 15:29 Home Medications Home Medications Medication Instructions Recorded Confirmed Type allopurinol [Zyloprim] 200 mg PO DAILY 06/19/19 06/19/19 History amlodipine [Norvasc] 5 mg PO BID 06/19/19 06/19/19 History aspirin [Aspirin Childrens] 81 mg PO DAILY 06/19/19 06/19/19 History atenolol 25 mg PO DAILY 06/19/19 06/19/19 History cholecalciferol (vitamin D3) 2,000 unit PO DAILY 06/19/19 06/19/19 History clopidogrel [Plavix] 75 mg PO QAM 06/19/19 06/19/19 History cyanocobalamin (vitamin B-12) 1,000 mcg PO DAILY 06/19/19 06/19/19 History gabapentin [Neurontin] 600 mg PO DAILY 06/19/19 06/19/19 History glipizide [Glucotrol XL] 5 mg PO DAILY 06/19/19 06/19/19 History isosorbide mononitrate 120 mg PO QAM 06/19/19 06/19/19 History losartan [Cozaar] 100 mg PO QAM 06/19/19 06/19/19 History magnesium chloride [Mag 64] 128 mg PO DAILY 06/19/19 06/19/19 History omeprazole 20 mg PO BID 06/19/19 06/19/19 History oxycodone [Roxicodone] 5 mg PO Q6H PRN 06/19/19 06/19/19 History ropinirole 2 mg PO HS 06/19/19 06/19/19 History simvastatin [Zocor] 20 mg PO HS 06/19/19 06/19/19 History Patient History Social History Feels Safe at Home: Yes Smoking Status: Never smoker Review of Systems Review of Systems: All systems reviewed & are unremarkable except as noted in HPI & below Nothing additional to add Physical Exam Physical Exam: General: no acute distress and stated age Head: normocephalic, no masses, lesions, tenderness or abnormalities Eyes: conjunctiva are pink and non-injected, sclera clear Neck: supple, no adenopathy, no bruits, normal jugular venous pulse, no hepatojugular reflux Chest: normal shape and normal respiratory effort Lungs: clear to auscultation and percussion Cardiac Exam: - regular rate & rhythm, no murmurs gallops or rubs - normal S1, normal S2 Pulses: 2(+) throughout Abdomen: abdomen soft, non-tender, no abnormal masses and no hepatosplenomegaly Musculoskeletal: no gait disturbance, no joint inflammation, no deforming arthritis Extremities: no edema and no cyanosis Neuro: grossly normal exam Results & Data ([facility]) Vital Signs (Past 12 Hours) Vital Signs Temp Pulse Resp BP Pulse Ox 06/19/19 15:15 49 L 14 161/57 H 97 06/19/19 15:02 50 L 18 155/59 H 96 06/19/19 15:00 53 L 21 96 06/19/19 14:56 56 L 9 L 154/59 H 96 06/19/19 14:45 58 L 27 H 96 06/19/19 14:30 49 L 2 L 184/76 H 97 06/19/19 14:15 52 L 16 181/75 H 96 06/19/19 14:00 57 L 20 160/64 H 97 06/19/19 13:55 55 L 18 96 06/19/19 13:53 52 L 21 143/52 H 97 06/19/19 13:24 36.6 C 57 L 24 143/52 H 96 Laboratory Results Laboratory Results - last 24 hr 06/19/19 06/19/19 06/19/19 13:15 13:15 13:15 WBC 7.38 RBC 3.42 L Hgb 10.6 L Hct 32.1 L MCV 93.9 MCH 31.0 MCHC 33.0 RDW Std Deviation 49.5 H RDW Coeff of Maynor 14.6 H Plt Count 214 MPV 11.3 H Immature Gran % (Auto) 0.7 Neut % (Auto) 58.1 Lymph % (Auto) 30.4 [place] % (Auto) 7.6 Eos % (Auto) 2.4 Baso % (Auto) 0.8 Immature Gran # (Auto) 0.05 H Neut # (Auto) 4.29 Lymph # (Auto) 2.24 [place] # (Auto) 0.56 Eos # (Auto) 0.18 Baso # (Auto) 0.06 PT 10.8 INR 1.0 APTT 28.8 PTT Ratio 1.0 Sodium 139 Potassium 4.9 Chloride 114 H Carbon Dioxide 19 L Anion Gap 6.0 BUN 38 H Creatinine 2.91 H Est Cr Clr Drug Dosing 18.2 Est GFR ( Amer) 22.9 Est GFR (Non-Af Amer) 19.7 BUN/Creatinine Ratio 13.0 Glucose 149 H Calcium 8.6 Total Bilirubin 0.4 AST 15 ALT 22 Alkaline Phosphatase 111 Troponin I 0.065 H* Total Protein 6.7 Albumin 3.0 L Globulin 3.7 Albumin/Globulin Ratio 0.8 L Lipase 272 Medications Administered Current Inpatient Medications Heparin Sodium/Dextrose (Heparin Sodium/Dextrose) 25,000 units in 500 mls @ 0.02 mls/hr IV .Q24H [facility]; Protocol Stop: 07/19/19 16:44 Nitroglycerin (Nitro-Bid 2%) 1 inch EXT Q6H [facility] Stop: 07/19/19 16:44
[2019-06-19] MEDS ORDERED: HEPARIN SOD (PORCINE) 1000 UNIT/ML 10 ML VIAL ONE (18:08)
[2019-06-19] MEDS ORDERED: HEPARIN SOD (PORCINE) 1000 UNIT/ML 10 ML VIAL IV STA (18:09)
[2019-06-19] MEDS: HEPARIN SODIUM/DEXTROSE 25,000 UNITS/500 ML BAG IV SCH (18:21)
--- NOTE | 2019-06-19 19:06 | History & Physical Report ---
Date of Service June 19, 2019 Assessment & Plan (1) Chest pain: (2) CAD (coronary artery disease): -Admit to telemetry -Patient presenting from home with reports of worsening chest pain over the past 1 week -In the ED, EKG shows an unchanged RBBB, troponin mildly elevated 0.065 -Continued to have mild chest pain after SL nitroglycerin, received IV morphine -History of CAD, CABG x4 -Given mild troponin elevation, will treat as NSTEMI with IV heparin and start topical nitroglycerin -Continue aspirin, Plavix, statin, beta-kiersten; hold isosorbide while on topical nitroglycerin -Serial cardiac enzymes, resting echo -Cardiology consult, case discussed with Dr. Gupta (3) DM type 2 (diabetes mellitus, type 2): -Hgb A1c 5.4 03/2019 -Hold oral agents and utilize NovoLog per protocol while hospitalized (4) HTN (hypertension): -BP intermittently elevated, likely situational -Continue home doses of amlodipine, losartan, atenolol; holding isosorbide as above (5) CKD (chronic kidney disease), stage IV: - baseline creat runs in the mid 2s - creat noted to be 2.9 today - continue to monitor, avoid nephrotoxic agents when able (6) DVT prophylaxis: -On IV heparin History of Present Illness Chief Complaint: Chest pain Primary Care Provider: Angel Gonzalez MD 78-year-old male who presents the ED for evaluation of chest pain. Patient reports history of chronic angina however reports worsening episodes of chest pain over the past 1 week. Patient reports having multiple episodes of chest pain per day. There does not seem to be any rhyme or reason to his episode of chest pain. Sometimes they occur at rest, other times with exertion. Patient reports associated shortness of breath and nausea. No diaphoresis, lightheadedness, dizziness, syncopal event. Patient reports the pain is located in the middle of his chest and sometimes has radiation into both shoulders. Describes the pain as sharp. Patient denies lower extremity edema and orthopnea. No other recent illnesses, fevers, chills. Denies abdominal pain, vomiting, diarrhea. No urinary symptoms. In the ED, EKG shows unchanged right bundle branch block, troponin mildly elevated 0.065. Patient is hemodynamically stable. He was given 1 sublingual nitroglycerin with resolution of his chest pain for about 10 minutes. He was then given IV morphine and IV Zofran. He also received a full dose aspirin. Allergies Allergy/AdvReac Type Severity Reaction Status Date / Time No Known Allergies Allergy Unverified 06/19/19 15:29 Home Medications Home Medications Medication Instructions Recorded Confirmed Type allopurinol [Zyloprim] 200 mg PO DAILY 06/19/19 06/19/19 History amlodipine [Norvasc] 5 mg PO BID 06/19/19 06/19/19 History aspirin [Aspirin Childrens] 81 mg PO DAILY 06/19/19 06/19/19 History atenolol 25 mg PO DAILY 06/19/19 06/19/19 History cholecalciferol (vitamin D3) 2,000 unit PO DAILY 06/19/19 06/19/19 History clopidogrel [Plavix] 75 mg PO QAM 06/19/19 06/19/19 History cyanocobalamin (vitamin B-12) 1,000 mcg PO DAILY 06/19/19 06/19/19 History gabapentin [Neurontin] 600 mg PO DAILY 06/19/19 06/19/19 History glipizide [Glucotrol XL] 5 mg PO DAILY 06/19/19 06/19/19 History isosorbide mononitrate 120 mg PO QAM 06/19/19 06/19/19 History losartan [Cozaar] 100 mg PO QAM 06/19/19 06/19/19 History magnesium chloride [Mag 64] 128 mg PO DAILY 06/19/19 06/19/19 History omeprazole 20 mg PO BID 06/19/19 06/19/19 History oxycodone [Roxicodone] 5 mg PO Q6H PRN 06/19/19 06/19/19 History ropinirole 2 mg PO HS 06/19/19 06/19/19 History simvastatin [Zocor] 20 mg PO HS 06/19/19 06/19/19 History Past Med/Surg History Medical History Aortic stenosis (Chronic) CAD (coronary artery disease) (Chronic) "CABG x 4" CKD (chronic kidney disease), stage IV (Chronic) DM type 2 (diabetes mellitus, type 2) (Chronic) Dyslipidemia (Chronic) GERD (gastroesophageal reflux disease) (Chronic) HTN (hypertension) (Chronic) PAD (peripheral artery disease) (Chronic) Surgical History History of back surgery (Chronic) History of carotid endarterectomy (Chronic) "right" History of cholecystectomy (Chronic) History of inguinal hernia repair (Chronic) History of rotator cuff surgery (Chronic) History of tonsillectomy and adenoidectomy (Chronic) Family History Brother Heart disease Mother Heart disease Social History Preferred Language: Trinidadian Communication Ability: Effective Proced Tech Required: No Beliefs That Will Affect Care: None Current Living Situation: Alone Other Information That Helps Us Care for You: No Feels Safe at Home: Yes Safety Concerns: Feels Safe At This Time Smoking Status: Former smoker Do You Dip or Chew Tobacco: Yes (1 can/day) ; Hx Alcohol Use: Yes (drinks 3 times a year) Alcohol Intake Frequency: Holidays/Special Occasions Hx Substance Use: No Review of Systems Review of Systems: ROS per HPI, all other systems reviewed and negative Physical Exam Constitutional: WD/WN, vitals as above Eyes: PERRL, conjunctivae normal, anicteric sclerae ENMT: external ear and nose normal, oropharynx normal Respiratory: normal respiratory effort, lungs clear to auscultation Cardiovascular: Rate/Rhythm: regular rate and regular rhythm Heart Sounds: + murmur (Systolic, grade 4/6) Vessels: normal peripheral pulses Extremities: no edema Gastrointestinal (Abdomen): normal bowel sounds, soft, nontender, no hepatosplenomegaly Musculoskeletal: no cyanosis or clubbing, extremities motor strength 5/5 Skin: no rashes, warm and dry Neurologic: PERRL, EOMI, accommodation nl, no face palsy, no dysarthria Psychiatric: A+Ox3, euthymic affect Results & Data Vital Signs (Past 12 Hours) Vital Signs Temp Pulse Resp BP Pulse Ox 06/19/19 17:45 52 L 19 95 06/19/19 17:37 60 16 160/61 H 95 06/19/19 17:30 51 L 17 142/129 H 96 06/19/19 17:15 63 19 95 06/19/19 17:00 54 L 18 163/63 H 96 06/19/19 16:45 52 L 19 95 06/19/19 16:33 59 L 19 170/65 H 96 06/19/19 16:30 57 L 22 172/142 H 95 06/19/19 16:15 45 L 24 95 06/19/19 16:00 49 L 19 160/57 H 96 06/19/19 15:45 55 L 19 97 06/19/19 15:39 61 25 H 163/60 H 96 06/19/19 15:30 52 L 15 96 06/19/19 15:15 49 L 14 161/57 H 97 06/19/19 15:02 50 L 18 155/59 H 96 06/19/19 15:00 53 L 21 96 06/19/19 14:56 56 L 9 L 154/59 H 96 06/19/19 14:45 58 L 27 H 96 06/19/19 14:30 49 L 2 L 184/76 H 97 06/19/19 14:15 52 L 16 181/75 H 96 06/19/19 14:00 57 L 20 160/64 H 97 06/19/19 13:55 55 L 18 96 06/19/19 13:53 52 L 21 143/52 H 97 06/19/19 13:24 36.6 C 57 L 24 143/52 H 96 Laboratory Results Short CBC 06/19/19 Range/Units 13:15 WBC 7.38 (4.8-10.8) K/uL Hgb 10.6 L (14.0-18.0) g/dL Hct 32.1 L (42-52) % Plt Count 214 (130-400) K/uL BMP 06/19/19 13:15 Sodium 139 Potassium 4.9 Chloride 114 H Carbon Dioxide 19 L BUN 38 H Creatinine 2.91 H Glucose 149 H Calcium 8.6 Cardiac Enzymes 06/19/19 Range/Units 13:15 Troponin I 0.065 H* (0-0.045) ng/ml Liver Function 06/19/19 Range/Units 13:15 Total Bilirubin 0.4 (0.2-1) mg/dl AST 15 (15-37) U/L ALT 22 (12-78) U/L Alkaline Phosphatase 111 (45-117) U/L Albumin 3.0 L (3.4-5.0) gm/dl Diagnostic Findings CXR IMPRESSION: 1. Cardiomegaly with suspected volume overload. 2. Reticular opacities at the lung bases may relate to scarring or fibrosis. 3. Suspected underlying chronic lung disease, likely emphysema. Code Status & VTE Plan Code Status Patient is a full code as per my discussion with him. VTE Prophylaxis Plan VTE Prophylaxis will be ordered: Yes Supervising Physician Co-Signing Physician Notes I have seen and examined the patient and have discussed the case with the provider above. I agree with the assessment and plan as stated with the following exceptions. 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 He specifically notes that 5 days ago he was hurting from substernal chest pain and he couldn't breathe well. He stayed in bed all day and thought he might . He then felt better the next day but since then has had issues with waxing and waning severe chest pain as well as intermittent shortness of breath. His troponin is mildly elevated and EKG is unchanged. Cardiology with eyes on him tonight and started heparin, continuing dual antiplatelet therapy, statin and BB therapy he was already taking. He was placed on nitro paste, also. However, on the floor he continues to report pain, some SOB without tachypnea and has an elevated blood pressure into the low 170s systolic. Will add morphine 4mg IV now to help the breathing, pain and BP and monitor serial cardiac enzymes overnight. Would recontact Cardiology overnight if pain cannot effectively be controlled. DO Pako
[2019-06-19] MEDS ORDERED: DEXTROSE 50% 50 ML SYRINGE IV PRN (19:44)
[2019-06-19] MEDS ORDERED: GLUCOSE 10 TABS/TUBE PO PRN (19:44)
[2019-06-19] MEDS ORDERED: ACETAMINOPHEN 325 MG TAB PO PRN (19:44)
[2019-06-19] MEDS ORDERED: GLUCOSE 40% GEL 15 GM TUBE PO PRN (19:44)
[2019-06-19] MEDS ORDERED: CARBOHYDRATES FOR HYPOGLYCEMIA PO PRN (19:44)
[2019-06-19] MEDS ORDERED: GLUCAGON FOR INJ 1 MG VIAL SQ PRN (19:44)
[2019-06-19] MEDS ORDERED: MoRPHine SULFATE 4 MG/ML 1 ML CARP\\VIAL IV STA (19:53)
[2019-06-19] MEDS: AMLODIPINE BESYLATE 5 MG TAB PO SCH (21:01)
[2019-06-19] MEDS: SIMVASTATIN 20 MG TAB PO SCH (21:01)
[2019-06-19] MEDS: INSULIN ASPART 100 UNITS/ML 3 ML PEN SC SCH (21:02)
[2019-06-19] MEDS: ROPINIROLE HCL 1 MG TABLET PO SCH (21:02)
[2019-06-19] MEDS: PANTOprazole 40 MG TAB PO SCH (21:02)
[2019-06-19] MEDS ORDERED: TRAMADOL HCL 50 MG TABLET PO PRN (22:34)
[2019-06-19] MEDS: HYDROmorphone INJ 0.5 MG/0.5 ML SYR IV PRN (22:46)
--- NOTE | 2019-06-19 22:52 | Communication Note ---
Overnight developments : Made aware by RN of uncontrolled blood pressure. SBP 140-170s since admission Patient currently comfortable as per RN. serum K 5.3 AP Uncontrolled hypertension Hyperkalemia Initiate hydralazine Hold ARB for now Regular insulin, IVF Lasix (given pulmonary congestion on CXR) for hyperkalemia Will relay to AM provider.
[2019-06-19] MEDS: HydrALAZINE 10 MG TAB PO SCH (23:37)
[2019-06-20] MEDS: NITROGLYCERIN 2% OINTMENT 30GM TUBE EXT SCH ×3 (00:10→11:26)
[2019-06-20 00:50] LABS: Partial Thromboplastin Ratio > 5.0
[2019-06-20 00:54] LABS: Partial Thromboplastin Time > 139.0 Seconds (21.0-31.0)
[2019-06-20 02:04] LABS: Hemoglobin 9.9 g/dL (14.0-18.0); Mean Corpuscular Hemoglobin 30.7 pg (25-34); Mean Corpuscular Volume 93.2 fL (80-100); Mean Platelet Volume 10.1 fL (7.4-10.4); Platelet Count 164 K/uL (130-400); RDW Coefficient of Variation 14.4 % (11.5-14.5); RDW Standard Deviation 49.2 fL (36.4-46.3); Red Blood Count 3.22 M/uL (4.7-6.1); White Blood Count 7.57 K/uL (4.8-10.8)
[2019-06-20 02:19] LABS: BUN Creatinine Ratio 12.3 (10-20); Calcium 8.1 mg/dl (8.5-10.1); Creatinine Clr Calc Pharmacy 18.4 ml/min; Est GFR (African American) 22.2; Est GFR (Non-African American) 19.2; Potassium 5.3 mmol/L (3.5-5.1)
[2019-06-20 02:23] LABS: Partial Thromboplastin Ratio 3.8
[2019-06-20 02:29] LABS: Partial Thromboplastin Time 106.1 Seconds (21.0-31.0)
[2019-06-20] MEDS ORDERED: FUROSEMIDE 60 MG in SYRINGE 0 ML IV ONE (04:00)
[2019-06-20] MEDS ORDERED: INSULIN HUMAN REGULAR PER UNIT 5 UNITS in SYRINGE 4.95 ML IV ONE (04:00)
[2019-06-20] MEDS ORDERED: DEXTROSE 50% 50 ML SYRINGE IV ONE (04:00)
[2019-06-20 06:26] LABS: Potassium 4.5 mmol/L (3.5-5.1)
[2019-06-20 06:40] LABS: Estimated Average Glucose 131 mg/dl; Hemoglobin A1C 6.2 % (4.5-5.6)
[2019-06-20 06:40] LABS: Thyroid Stimulating Hormone 3.22 uIu/ml (0.300-4.500); Troponin I 0.063 ng/ml (0-0.045)
[2019-06-20] MEDS: INSULIN ASPART 100 UNITS/ML 3 ML PEN SC SCH ×4 (08:21→21:21)
[2019-06-20] MEDS: HYDROmorphone INJ 0.5 MG/0.5 ML SYR IV PRN ×2 (08:26→21:35)
[2019-06-20] MEDS: HydrALAZINE 10 MG TAB PO SCH ×3 (08:33→21:23)
[2019-06-20] MEDS: ATENOLOL 25 MG TABLET PO SCH (08:33)
[2019-06-20] MEDS: CYANOCOBALAMIN 500 MCG TABLET (VITAMIN B-12) PO SCH (08:34)
[2019-06-20] MEDS: CLOPIDOGREL BISULFATE 75 MG TAB PO SCH (08:34)
[2019-06-20] MEDS: MAGNESIUM CHLORIDE 64MG DELAYED REL TAB PO SCH (08:34)
[2019-06-20] MEDS: GABAPENTIN 600 MG TAB PO SCH (08:35)
[2019-06-20] MEDS: allopurinoL 100 MG TAB PO SCH (08:35)
[2019-06-20] MEDS: AMLODIPINE BESYLATE 5 MG TAB PO SCH ×2 (08:36→21:22)
[2019-06-20] MEDS: PANTOprazole 40 MG TAB PO SCH ×2 (08:36→21:22)
[2019-06-20] MEDS: CHOLECALCIFEROL 1,000 UNITS 25 MCG TAB PO SCH (08:36)
[2019-06-20] MEDS: ASPIRIN 81 MG ECTAB PO SCH (08:36)
[2019-06-20] MEDS ORDERED: LOSARTAN POTASSIUM 50 MG TAB PO SCH (09:00)
[2019-06-20 09:18] LABS: Partial Thromboplastin Time 83.7 Seconds (21.0-31.0)
--- NOTE | 2019-06-20 12:07 | Electrocardiogram Report ---
Test Reason : Blood Pressure : / mmHG Vent. Rate : 047 BPM Atrial Rate : 047 BPM P-R Int : 222 ms QRS Dur : 138 ms QT Int : 492 ms P-R-T Axes : -18 054 057 degrees QTc Int : 435 ms Sinus bradycardia with 1st degree A-V block Right bundle branch block Abnormal ECG When compared with ECG of 19-JUN-2019 15:41, No significant change was found Confirmed by Melo Mcqueen ([id number]) on 06/20/2019 12:07:35 PM Referred By: REFERRED SELF Confirmed By:Melo Mcqueen
--- NOTE | 2019-06-20 12:56 | Cardiology Progress Note ---
Date of Service June 20, 2019 Assessment & Plan (1) NSTEMI (non-ST elevated myocardial infarction): (2) Aortic stenosis: (3) CKD (chronic kidney disease), stage IV: Mr Chery has a history of chronic coronary artery disease for which he underwent previous CABG x 4 with ROBLES to LAD, inferior epigatric artery to the RCA, and SVG to the Diag, SVT to OM 25 years ago when he was in his early 50s. I actually referred him for his most recent cardiac catheterization which took place at [facility] in September 2009. The procedure note describes significant complexity with multiple catheter exchanges. Ultimately it was felt that the patient had 100% stenosis of the tanana LAD, circumflex, and right coronary arteries. A 99% left main stenosis was noted. The internal mammary artery graft to the LAD was patent with good distal runoff. The inferior epigastric artery to the right coronary artery was patent, but an 80% hepatic artery stenosis was present which threatened the graft. The SVG to the diagonal branch of the LAD was patent, with 100% stenosis within the diagonal branch. The vein graft to the obtuse marginal was widely patent with good distal runoff. At that time, there was considerable debate regarding revascularization of the hepatic artery stenosis, but it was felt that this would be a very complex procedure with significant risk to the circulation of the liver and the inferior wall of the heart. Ongoing medication management was therefore recommended. The patient is stage IV chronic kidney disease with baseline creatinine in the range of 2.6-2.9 recently as an outpatient, and creatinine of 2.98 today. Calculated GFR 19.2 Echocardiogram performed today reveals normal LVEF, and although the aortic valve appears to be calcified, Doppler assessment is consistent with moderate aortic valve stenosis and mild aortic valve regurgitation. The patient most recently been seen as an outpatient last month in May,. At that time he described worsening dyspnea and exertional chest pain, and after a detailed discussion with shared decision making between the provider and the patient, ongoing medication management was pursued. The patient now states that he "can't live like this". He is aware that cardiac catheterization may result in Progressive renal dysfunction and dialysis. Fortunately his increase in cardiac enzymes is only mild with troponin I of 0.06 ng/ml with a mild and flat elevation x Serial measurements thus far, and he does not have angina at rest at present. EKG reveals stable findings without findings of indication for emergent cardiac catheterization. For now will continue prior to hospital treatment with aspirin and clopidogrel. Heparin infusion to be continued. Will transition him from topical nitroglycerin back to his oral Imdur. If he has ongoing refractory symptoms, I will discuss his case with interventional cardiology at [facility] for consideration of high risk cardiac catheterization and consideration of hemodynamic assessment of at the same time to make sure this is not being underestimated by the echocardiogram. . Subjective Patient seen in cardiology follow up with initial consultation having been performed by Dr Gupta on 06/19/19. Denies current chest pain while on heparin infusion, with topical nitrates. Review of Systems Review of Systems: All systems reviewed & are unremarkable except as noted in HPI & below Physical Exam Physical Exam: Temp Pulse Resp BP Pulse Ox 36.8 C 54 L 20 150/63 H 96 06/20/19 11:30 06/20/19 11:30 06/20/19 11:30 06/20/19 11:30 06/20/19 11:30 Constitutional: WD/WN, vitals as above Respiratory: normal respiratory effort, lungs clear to auscultation Cardiovascular: Rate/Rhythm: regular rate Heart Sounds: + murmur (II/ systolic murmur heard best at LSB and radiating to the neck BL) Vessels: no JVD Extremities: no edema Gastrointestinal (Abdomen): normal bowel sounds, soft, nontender, no hepatosplenomegaly Neurologic: PERRL, EOMI, accommodation nl, no face palsy, no dysarthria Results & Data Vital Signs (Past 12 Hours) Vital Signs Temp Pulse Pulse Resp BP Pulse Ox 06/20/19 11:30 36.8 C 54 L 20 150/63 H 96 06/20/19 08:00 36.5 C 58 L 16 152/69 H 96 06/20/19 07:45 48 L 06/20/19 02:38 36.6 C 50 L 16 150/57 H 96 Laboratory Results Cardiac Enzymes 06/19/19 06/19/19 06/20/19 Range/Units 13:15 19:56 00:18 AST 15 (15-37) U/L Troponin I 0.065 H* 0.054 H* 0.065 H* (0-0.045) ng/ml 06/20/19 Range/Units 05:10 AST (15-37) U/L Troponin I 0.063 H* (0-0.045) ng/ml Coagulation 06/19/19 06/20/19 06/20/19 Range/Units 13:15 00:18 01:47 PT 10.8 (9.0-12.0) Seconds APTT 28.8 > 139.0 H* 106.1 H* (21.0-31.0) Seconds 06/20/19 Range/Units 08:49 PT (9.0-12.0) Seconds APTT 83.7 H* (21.0-31.0) Seconds CBC 06/19/19 06/20/19 Range/Units 13:15 01:47 WBC 7.38 7.57 (4.8-10.8) K/uL RBC 3.42 L 3.22 L (4.7-6.1) M/uL Hgb 10.6 L 9.9 L (14.0-18.0) g/dL Hct 32.1 L 30.0 L (42-52) % Plt Count 214 164 (130-400) K/uL Neut # (Auto) 4.29 (1.4-6.5) K/uL Lymph # (Auto) 2.24 (1.2-3.4) K/uL [place] # (Auto) 0.56 (0.11-0.59) K/uL Eos # (Auto) 0.18 (0-0.5) K/uL Baso # (Auto) 0.06 (0-0.2) K/uL Comprehensive Metabolic Panel 06/19/19 06/20/19 06/20/19 Range/Units 13:15 01:47 05:10 Sodium 139 139 (136-145) mmol/L Potassium 4.9 5.3 H 4.5 D (3.5-5.1) mmol/L Chloride 114 H 114 H (98-107) mmol/L Carbon Dioxide 19 L 21 (21-32) mmol/L BUN 38 H 37 H (7-18) mg/dl Creatinine 2.91 H 2.98 H (0.6-1.4) mg/dl Glucose 149 H 112 H (70-99) mg/dl Calcium 8.6 8.1 L (8.5-10.1) mg/dl AST 15 (15-37) U/L ALT 22 (12-78) U/L Alkaline Phosphatase 111 (45-117) U/L Total Protein 6.7 (6.4-8.2) gm/dl Albumin 3.0 L (3.4-5.0) gm/dl Intake and Output 06/19/19 06/20/19 06/20/19 22:59 06:59 14:59 Intake Total 240 / 471.6 231.6 / 471.6 49.35 / 49.35 Output Total 150 / 150 Balance 240 / 321.6 81.6 / 321.6 49.35 / 49.35 Intake: IV 231.6 / 231.6 49.35 / 49.35 HEPARIN SODIUM/DEXTROSE 25,000 231.6 / 231.6 49.35 / 49.35 units In 500 ml @ 1,050 UNITS/ HR 21 mls/hr IV .[id number] [facility] Rx #:[id number] Oral 240 / 240 Output: Urine 150 / 150 Other: # Unmeasured Voids 1 Weight 69.6 kg 70 kg Diagnostic Findings Serial EKG tracings reviewed dated 06/19/2019, 06/19/2019, and 06/20/2019, revealing sinus rhythm. Most recent of which revealed sinus bradycardia at 47 bpm, with first-degree AV block, right bundle branch block. No significant repolarization changes.
[2019-06-20] MEDS ORDERED: ISOSORBIDE MONO EXTENDED REL 60 MG TABCR PO ONE (13:00)
--- NOTE | 2019-06-20 14:23 | Hospitalist Progress Note ---
Date of Service June 20, 2019 Assessment & Plan (1) NSTEMI (non-ST elevated myocardial infarction): persistent with [facility] working on a plan for workup considering complex cardiac history and ongoing CKD limiting the ability to give contrast. Cont current medical management. Nitro paste was stopped and Imdur put back on. PRN morphine or nitro for severe chest pain episodes at this time. Serial enzymes did not rise significantly overnight. cont heparin. (2) CAD (coronary artery disease): medical management as above. (3) DM type 2 (diabetes mellitus, type 2): At goal inpatient, cont insulin with correction factor and carb coverage. (4) HTN (hypertension): -BP intermittently elevated, likely situational -Continue home doses of amlodipine, losartan, atenolol (5) CKD (chronic kidney disease), stage IV: - baseline creat runs in the mid 2s, currently at baseline. - continue to monitor, avoid nephrotoxic agents when able (6) DVT prophylaxis: -On IV heparin Full Code Dispo-to home when medically stable. Magdalene Min DO [facility] Hospitalist Admission and Anticipated Discharge Date Admission Date: June 19, 2019 Anticipated date of discharge: 06/23/19 Subjective Reports intermittent chest pain 1-3 otu of 10 overnight and thorughout the morning. No associated symptoms. Denies SOB. Reports that he is overall so much better symptomatically than earlier in the week. Discussed the case with Gritting Machine Operator who has a good plan and is considering workup at a tertiary care facility. Complex cardiac history is present with ongoing CKD complicating the workup. Family at bedside and all questions were answered. Review of Systems Review of Systems: All systems reviewed & are unremarkable except as noted in Subjective Physical Exam Physical Exam: CONSTITUTIONAL: WNWD, vitals as above, generally well- appearing EYES: normal conjunctivae, no scleral icterus ENT: MMM RESPIRATORY: clear to auscultation bilaterally, no crackles, rales or wheezes, normal respiratory effort CARDIOVASCULAR: regular rate and rhythm, S1 and 2 heard without murmurs, gallops or rubs, no JVD, no peripheral edema GASTROINTESTINAL: soft, nontender, nondistended MUSCULOSKELETAL: strength 5/5 throughout, head is normocephalic and atraumatic SKIN: warm and dry NEUROLOGIC: CN 2-12 grossly intact, no sensory deficit, normal cognition, no gross focal deficits. PSYCHIATRIC: alert cooperative and oriented Results & Data ([facility]) Vital Signs (Past 12 Hours) Vital Signs Temp Pulse Pulse Resp BP Pulse Ox 06/20/19 11:30 36.8 C 54 L 20 150/63 H 96 06/20/19 08:00 36.5 C 58 L 16 152/69 H 96 06/20/19 07:45 48 L 06/20/19 02:38 36.6 C 50 L 16 150/57 H 96 Laboratory Results Short CBC 06/19/19 06/20/19 Range/Units 13:15 01:47 WBC 7.38 7.57 (4.8-10.8) K/uL Hgb 10.6 L 9.9 L (14.0-18.0) g/dL Hct 32.1 L 30.0 L (42-52) % Plt Count 214 164 (130-400) K/uL BMP 06/19/19 06/20/19 06/20/19 13:15 01:47 05:10 Sodium 139 139 Potassium 4.9 5.3 H 4.5 D Chloride 114 H 114 H Carbon Dioxide 19 L 21 BUN 38 H 37 H Creatinine 2.91 H 2.98 H Glucose 149 H 112 H Calcium 8.6 8.1 L Cardiac Enzymes 06/19/19 06/19/19 06/20/19 Range/Units 13:15 19:56 00:18 Troponin I 0.065 H* 0.054 H* 0.065 H* (0-0.045) ng/ml 06/20/19 Range/Units 05:10 Troponin I 0.063 H* (0-0.045) ng/ml Liver Function 06/19/19 Range/Units 13:15 Total Bilirubin 0.4 (0.2-1) mg/dl AST 15 (15-37) U/L ALT 22 (12-78) U/L Alkaline Phosphatase 111 (45-117) U/L Albumin 3.0 L (3.4-5.0) gm/dl Medications Administered Current Inpatient Medications Acetaminophen (Tylenol) 650 mg PO Q4H PRN PRN Reason: Pain or Fever Stop: 07/19/19 19:43 Allopurinol (Zyloprim) 200 mg PO DAILY [facility] Stop: 07/20/19 08:59 Last Admin: 06/20/19 08:35 Dose: 200 mg Documented by: Amlodipine Besylate (Norvasc) 5 mg PO BID [facility] Stop: 07/19/19 20:59 Last Admin: 06/20/19 08:36 Dose: 5 mg Documented by: Aspirin (Ecotrin Ectab) 81 mg PO DAILY [facility] Stop: 07/20/19 08:59 Last Admin: 06/20/19 08:36 Dose: 81 mg Documented by: Atenolol (Tenormin) 25 mg PO DAILY [facility] Stop: 07/20/19 08:59 Last Admin: 06/20/19 08:33 Dose: 25 mg Documented by: Clopidogrel Bisulfate (Plavix) 75 mg PO QAM [facility] Stop: 07/20/19 08:59 Last Admin: 06/20/19 08:34 Dose: 75 mg Documented by: Cyanocobalamin (Vitamin B-12) 1,000 mcg PO DAILY [facility] Stop: 07/20/19 08:59 Last Admin: 06/20/19 08:34 Dose: 1,000 mcg Documented by: Dextrose (Dextrose 50%) 25 - 50 ml IV UD PRN; Protocol PRN Reason: Hypoglycemia Protocol Stop: 07/19/19 19:43 Gabapentin (Neurontin) 600 mg PO DAILY [facility] Stop: 07/20/19 08:59 Last Admin: 06/20/19 08:35 Dose: 600 mg Documented by: Glucagon (Glucagen) 1 mg SQ UD PRN; Protocol PRN Reason: Hypoglycemia Protocol Stop: 07/19/19 19:43 Glucose (Dex4 Glucose) 4 - 8 tabs PO UD PRN; Protocol PRN Reason: Hypoglycemia Protocol Stop: 07/19/19 19:43 Glucose (Glucose 40%) 15 - 30 gm PO UD PRN; Protocol PRN Reason: Hypoglycemia Protocol Stop: 07/19/19 19:43 Hydralazine HCl (Apresoline) 10 mg PO TID [facility] Stop: 07/19/19 22:54 Last Admin: 06/20/19 08:33 Dose: 10 mg Documented by: Hydromorphone HCl (Dilaudid) 0.5 mg IV Q3H PRN PRN Reason: Pain Stop: 07/03/19 22:33 Last Admin: 06/20/19 08:26 Dose: 0.5 mg Documented by: Heparin Sodium/Dextrose (Heparin Sodium/Dextrose) 25,000 units in 500 mls @ 21 mls/hr IV .[id number] [facility]; Protocol Stop: 07/19/19 16:44 Last Titration: 06/20/19 09:49 Dose: 900 units/hr, 18 mls/hr Documented by: Insulin Aspart (Novolog Flexpen) 0 units SC ACHS [facility] Stop: 07/19/19 20:59 Last Admin: 06/20/19 12:00 Dose: Not Given Documented by: Isosorbide Mononitrate (Imdur Extended Rel) 120 mg PO QAM [facility] Stop: 07/21/19 08:59 Magnesium Chloride (Slow-Mag) 128 mg PO DAILY [facility] Stop: 07/20/19 08:59 Last Admin: 06/20/19 08:34 Dose: 128 mg Documented by: Miscellaneous (Carbohydrates For Hypoglycemia) 15 - 30 gm PO UD PRN PRN Reason: Hypoglycemia Protocol Stop: 07/19/19 19:43 Pantoprazole Sodium (Protonix) 40 mg PO BID [facility] Stop: 07/19/19 20:59 Last Admin: 06/20/19 08:36 Dose: 40 mg Documented by: Ropinirole HCl (Requip) 2 mg PO HS [facility] Stop: 07/19/19 20:59 Last Admin: 06/19/19 21:02 Dose: 2 mg Documented by: Simvastatin (Zocor) 20 mg PO HS [facility] Stop: 07/19/19 20:59 Last Admin: 06/19/19 21:01 Dose: 20 mg Documented by: Tramadol HCl (Ultram) 25 - 50 mg PO Q4H PRN PRN Reason: Pain Stop: 07/19/19 22:33 Vitamin D (Vitamin D3) 2,000 units PO DAILY [facility] Stop: 07/20/19 08:59 Last Admin: 06/20/19 08:36 Dose: 2,000 units Documented by: (1) CAD (coronary artery disease) Associated angina: with unstable angina Coronary Disease-Associated Artery/Lesion type: unspecified vessel or lesion type [place] vs. transplanted heart: [place] heart Qualified Code(s): I25.110 - Atherosclerotic heart disease of [place] coronary artery with unstable angina pectoris
[2019-06-20 16:28] LABS: Partial Thromboplastin Ratio 2.3
[2019-06-20 16:39] LABS: Partial Thromboplastin Time 64.6 Seconds (21.0-31.0)
[2019-06-20] MEDS: HEPARIN SODIUM/DEXTROSE 25,000 UNITS/500 ML BAG IV SCH ×2 (18:45→18:47)
[2019-06-20] MEDS: SIMVASTATIN 20 MG TAB PO SCH (21:21)
[2019-06-20] MEDS: ROPINIROLE HCL 1 MG TABLET PO SCH (21:22)
[2019-06-21 05:56] LABS: Hemoglobin 10.3 g/dL (14.0-18.0); Mean Corpuscular Hemoglobin 30.5 pg (25-34); Mean Corpuscular Hgb Conc 33.2 g/dL (32-36); Mean Corpuscular Volume 91.7 fL (80-100); Mean Platelet Volume 10.3 fL (7.4-10.4); Platelet Count 171 K/uL (130-400); RDW Coefficient of Variation 14.2 % (11.5-14.5); RDW Standard Deviation 47.3 fL (36.4-46.3); Red Blood Count 3.38 M/uL (4.7-6.1); White Blood Count 5.54 K/uL (4.8-10.8)
[2019-06-21 06:15] LABS: Partial Thromboplastin Ratio 3.1
[2019-06-21 06:20] LABS: Partial Thromboplastin Time 85.1 Seconds (21.0-31.0)
[2019-06-21 06:23] LABS: BUN Creatinine Ratio 12.4 (10-20); Calcium 8.4 mg/dl (8.5-10.1); Creatinine Clr Calc Pharmacy 17.2 ml/min; Est GFR (African American) 20.5; Est GFR (Non-African American) 17.7; Potassium 4.9 mmol/L (3.5-5.1)
[2019-06-21] MEDS: INSULIN ASPART 100 UNITS/ML 3 ML PEN SC SCH ×4 (08:44→21:00)
[2019-06-21] MEDS: ISOSORBIDE MONO EXTENDED REL 60 MG TABCR PO SCH (08:45)
[2019-06-21] MEDS: GABAPENTIN 600 MG TAB PO SCH (08:45)
[2019-06-21] MEDS: PANTOprazole 40 MG TAB PO SCH ×2 (08:45→20:59)
[2019-06-21] MEDS: CLOPIDOGREL BISULFATE 75 MG TAB PO SCH (08:45)
[2019-06-21] MEDS: AMLODIPINE BESYLATE 5 MG TAB PO SCH ×2 (08:45→20:59)
[2019-06-21] MEDS: CHOLECALCIFEROL 1,000 UNITS 25 MCG TAB PO SCH (08:45)
[2019-06-21] MEDS: HydrALAZINE 10 MG TAB PO SCH ×3 (08:46→20:59)
[2019-06-21] MEDS: allopurinoL 100 MG TAB PO SCH (08:46)
[2019-06-21] MEDS: MAGNESIUM CHLORIDE 64MG DELAYED REL TAB PO SCH (08:46)
[2019-06-21] MEDS: CYANOCOBALAMIN 500 MCG TABLET (VITAMIN B-12) PO SCH (08:46)
[2019-06-21] MEDS: ASPIRIN 81 MG ECTAB PO SCH (08:46)
[2019-06-21] MEDS: ATENOLOL 25 MG TABLET PO SCH (08:54)
[2019-06-21 13:22] LABS: Partial Thromboplastin Ratio 2.1
[2019-06-21 13:33] LABS: Partial Thromboplastin Time 59.2 Seconds (21.0-31.0)
[2019-06-21] MEDS: HEPARIN SODIUM/DEXTROSE 25,000 UNITS/500 ML BAG IV SCH (13:35)
--- NOTE | 2019-06-21 15:34 | Cardiology Progress Note ---
Date of Service June 21, 2019 Assessment & Plan (1) NSTEMI (non-ST elevated myocardial infarction): (2) CKD (chronic kidney disease), stage IV: Patient with complex coronary heart disease, and complaints of exertional shortness of breath and an episode of chest pain prompting this hospital stay. Troponin level has been only minimally elevated, without significant ischemic EKG changes. Patient's creatinine was 3.19 today, compared to his baseline of 2.6-2.9. I once again discussed options of ongoing medication therapy versus high risk cardiac catheterization. He is aware that with contrast exposure he would be at significant risk of progressive kidney dysfunction even dialysis. At present, he would like to hold off on cardiac catheterization and perhaps he may go home to see how he feels. We will therefore discontinue his unfractionated heparin at 1700 today having completed 48 hours, and we will reassess him tomorrow. Continue oral medication treatment including aspirin, clopidogrel, atenolol, amlodipine, hydralazine, isosorbide mononitrate, and simvastatin. He does have a history of moderate aortic valve stenosis, preserved LVEF on echocardiogram yesterday. His blood pressure is a little bit above goal, but he is on multiple agents, and I can concerned about lowering his blood pressure too much in the setting of aortic valve stenosis, will therefore continue his outpatient medications for now. Subjective Patient seen and examined. He denies any current chest discomfort. Unfractioned heparin is infusing. Telemetry reveals sinus bradycardia in the range of 50 bpm. Review of Systems Review of Systems: All systems reviewed & are unremarkable except as noted in HPI & below Physical Exam Physical Exam: Temp Pulse Resp BP Pulse Ox 36.6 C 55 L 18 157/60 H 97 06/21/19 15:19 06/21/19 15:19 06/21/19 15:19 06/21/19 15:19 06/21/19 15:19 Constitutional: WD/WN, vitals as above Respiratory: normal respiratory effort, lungs clear to auscultation Cardiovascular: Rate/Rhythm: regular rhythm Heart Sounds: + murmur (II/ systolic murmur heard best at left sternal border radiating to the neck bilaterally) Vessels: no JVD Extremities: no edema Gastrointestinal (Abdomen): normal bowel sounds, soft, nontender, no hepatosplenomegaly Neurologic: PERRL, EOMI, accommodation nl, no face palsy, no dysarthria Results & Data Vital Signs (Past 12 Hours) Vital Signs Temp Pulse Pulse Resp BP Pulse Ox 06/21/19 15:19 36.6 C 55 L 18 157/60 H 97 06/21/19 10:10 36.4 C L 60 20 161/61 H 97 06/21/19 08:45 53 L 06/21/19 07:11 36.5 C 51 L 20 147/64 H 93 Laboratory Results Coagulation 06/20/19 06/21/19 06/21/19 Range/Units 15:55 05:15 12:54 APTT 64.6 H* 85.1 H* 59.2 H* (21.0-31.0) Seconds CBC 06/21/19 Range/Units 05:15 WBC 5.54 (4.8-10.8) K/uL RBC 3.38 L (4.7-6.1) M/uL Hgb 10.3 L (14.0-18.0) g/dL Hct 31.0 L (42-52) % Plt Count 171 (130-400) K/uL Comprehensive Metabolic Panel 06/21/19 Range/Units 05:15 Sodium 139 (136-145) mmol/L Potassium 4.9 (3.5-5.1) mmol/L Chloride 111 H (98-107) mmol/L Carbon Dioxide 22 (21-32) mmol/L BUN 40 H (7-18) mg/dl Creatinine 3.19 H (0.6-1.4) mg/dl Glucose 98 (70-99) mg/dl Calcium 8.4 L (8.5-10.1) mg/dl Intake and Output 06/21/19 06/21/19 06/21/19 06:59 14:59 22:59 Intake Total 208.8 / 1008.95 475.75 / 475.75 Output Total 300 / 1650 Balance -91.2 / -641.05 475.75 / 475.75 Intake: IV 208.8 / 418.95 100.75 / 100.75 HEPARIN SODIUM/DEXTROSE 25,000 208.8 / 418.95 100.75 / 100.75 units In 500 ml @ 900 UNITS/HR 18 mls/hr IV .Q24H [facility] Rx#: [id number] Oral 375 / 375 Output: Urine 300 / 1650 Other: Weight 68.5 kg 68.5 kg Patient Weight 06/22/19 06:59 Weight 68.5 kg
--- NOTE | 2019-06-21 17:48 | Hospitalist Progress Note ---
Date of Service June 21, 2019 Assessment & Plan (1) NSTEMI (non-ST elevated myocardial infarction): pain improved, cont heparin drip and medical management. Clinical Application Consultant considering high risk cath at tertiary care center. (2) CAD (coronary artery disease): cont med management with current regimen. (3) DM type 2 (diabetes mellitus, type 2): At goal inpatient, but received message from glycemic nurse educator that he prefers to have his blood sugar around 120 to feel right. I have eliminated the carb coverage for now and will continue with correction factor only. A1C is 6.2 and he has not been requiring much insulin at all during his stay so far. (4) HTN (hypertension): -BP intermittently elevated, likely situational -Continue home doses of amlodipine, losartan, atenolol (5) CKD (chronic kidney disease), stage IV: - baseline creat runs in the mid 2s, slightly higher around 3.2 today. - continue to monitor, avoid nephrotoxic agents when able (6) Anemia: around his baseline, prob multifactorial including anemia of chronic disease/inflammation, phlebotomy while hospitalized and anemia from CKD. (7) DVT prophylaxis: -On IV heparin Full Code Dispo-to home when medically stable. Magdalene Min DO [facility] Hospitalist Admission and Anticipated Discharge Date Admission Date: June 19, 2019 Anticipated date of discharge: 06/23/19 Subjective reports chest pain is improved overnight discussion about cath and risks related to kidney function patient states that his pain episodes are so severe, that he would risk going on HD in order to possibly "fix" his heart by undergoing a heart cath heparin still running denies SOB or other issues today tolerating PO Review of Systems Review of Systems: All systems reviewed & are unremarkable except as noted in Subjective Physical Exam Physical Exam: CONSTITUTIONAL: WNWD, vitals as above, generally well- appearing EYES: normal conjunctivae, no scleral icterus ENT: MMM RESPIRATORY: clear to auscultation bilaterally, no crackles, rales or wheezes, normal respiratory effort CARDIOVASCULAR: regular rate and rhythm, S1 and 2 heard without murmurs, gal lops or rubs, no JVD, no peripheral edema GASTROINTESTINAL: soft, nontender, nondistended MUSCULOSKELETAL: strength 5/5 throughout, head is normocephalic and atraumatic SKIN: warm and dry NEUROLOGIC: CN 2-12 grossly intact, no sensory deficit, normal cognition, no gross focal deficits. PSYCHIATRIC: alert cooperative and oriented Results & Data ([facility]) Vital Signs (Past 12 Hours) Vital Signs Temp Pulse Pulse Resp BP Pulse Ox 06/21/19 15:19 36.6 C 55 L 18 157/60 H 97 06/21/19 10:10 36.4 C L 60 20 161/61 H 97 06/21/19 08:45 53 L 06/21/19 07:11 36.5 C 51 L 20 147/64 H 93 Laboratory Results Short CBC 06/21/19 Range/Units 05:15 WBC 5.54 (4.8-10.8) K/uL Hgb 10.3 L (14.0-18.0) g/dL Hct 31.0 L (42-52) % Plt Count 171 (130-400) K/uL BMP 06/21/19 05:15 Sodium 139 Potassium 4.9 Chloride 111 H Carbon Dioxide 22 BUN 40 H Creatinine 3.19 H Glucose 98 Calcium 8.4 L Medications Administered Current Inpatient Medications Acetaminophen (Tylenol) 650 mg PO Q4H PRN PRN Reason: Pain or Fever Stop: 07/19/19 19:43 Allopurinol (Zyloprim) 200 mg PO DAILY [facility] Stop: 07/20/19 08:59 Last Admin: 06/21/19 08:46 Dose: 200 mg Documented by: Amlodipine Besylate (Norvasc) 5 mg PO BID [facility] Stop: 07/19/19 20:59 Last Admin: 06/21/19 08:45 Dose: 5 mg Documented by: Aspirin (Ecotrin Ectab) 81 mg PO DAILY [facility] Stop: 07/20/19 08:59 Last Admin: 06/21/19 08:46 Dose: 81 mg Documented by: Atenolol (Tenormin) 25 mg PO DAILY [facility] Stop: 07/20/19 08:59 Last Admin: 06/21/19 08:54 Dose: Not Given Documented by: Clopidogrel Bisulfate (Plavix) 75 mg PO QAM [facility] Stop: 07/20/19 08:59 Last Admin: 06/21/19 08:45 Dose: 75 mg Documented by: Cyanocobalamin (Vitamin B-12) 1,000 mcg PO DAILY [facility] Stop: 07/20/19 08:59 Last Admin: 06/21/19 08:46 Dose: 1,000 mcg Documented by: Dextrose (Dextrose 50%) 25 - 50 ml IV UD PRN; Protocol PRN Reason: Hypoglycemia Protocol Stop: 07/19/19 19:43 Gabapentin (Neurontin) 600 mg PO DAILY [facility] Stop: 07/20/19 08:59 Last Admin: 06/21/19 08:45 Dose: 600 mg Documented by: Glucagon (Glucagen) 1 mg SQ UD PRN; Protocol PRN Reason: Hypoglycemia Protocol Stop: 07/19/19 19:43 Glucose (Dex4 Glucose) 4 - 8 tabs PO UD PRN; Protocol PRN Reason: Hypoglycemia Protocol Stop: 07/19/19 19:43 Glucose (Glucose 40%) 15 - 30 gm PO UD PRN; Protocol PRN Reason: Hypoglycemia Protocol Stop: 07/19/19 19:43 Hydralazine HCl (Apresoline) 10 mg PO TID [facility] Stop: 07/19/19 22:54 Last Admin: 06/21/19 14:36 Dose: 10 mg Documented by: Hydromorphone HCl (Dilaudid) 0.5 mg IV Q3H PRN PRN Reason: Pain Stop: 07/03/19 22:33 Last Admin: 06/20/19 21:35 Dose: 0.5 mg Documented by: Insulin Aspart (Novolog Flexpen) 0 units SC ACHS [facility] Stop: 07/19/19 20:59 Last Admin: 06/21/19 17:28 Dose: Not Given Documented by: Isosorbide Mononitrate (Imdur Extended Rel) 120 mg PO QAM [facility] Stop: 07/21/19 08:59 Last Admin: 06/21/19 08:45 Dose: 120 mg Documented by: Magnesium Chloride (Slow-Mag) 128 mg PO DAILY [facility] Stop: 07/20/19 08:59 Last Admin: 06/21/19 08:46 Dose: 128 mg Documented by: Miscellaneous (Carbohydrates For Hypoglycemia) 15 - 30 gm PO UD PRN PRN Reason: Hypoglycemia Protocol Stop: 07/19/19 19:43 Nitroglycerin (Nitrostat) 0.4 mg SL PRN PRN PRN Reason: Chest Pain Stop: 07/20/19 16:10 Pantoprazole Sodium (Protonix) 40 mg PO BID [facility] Stop: 07/19/19 20:59 Last Admin: 06/21/19 08:45 Dose: 40 mg Documented by: Ropinirole HCl (Requip) 2 mg PO HS [facility] Stop: 07/19/19 20:59 Last Admin: 06/20/19 21:22 Dose: 2 mg Documented by: Simvastatin (Zocor) 20 mg PO HS [facility] Stop: 07/19/19 20:59 Last Admin: 06/20/19 21:21 Dose: 20 mg Documented by: Tramadol HCl (Ultram) 25 - 50 mg PO Q4H PRN PRN Reason: Pain Stop: 07/19/19 22:33 Vitamin D (Vitamin D3) 2,000 units PO DAILY [facility] Stop: 07/20/19 08:59 Last Admin: 06/21/19 08:45 Dose: 2,000 units Documented by: (1) CAD (coronary artery disease) Associated angina: with unstable angina Coronary Disease-Associated Artery/Lesion type: unspecified vessel or lesion type [place] vs. transplanted heart: [place] heart Qualified Code(s): I25.110 - Atherosclerotic heart disease of [place] coronary artery with unstable angina pectoris
[2019-06-21] MEDS: ROPINIROLE HCL 1 MG TABLET PO SCH (20:59)
[2019-06-21] MEDS: SIMVASTATIN 20 MG TAB PO SCH (21:00)
[2019-06-22 05:46] LABS: Hematocrit (blood only) 30.7 % (42-52); Hemoglobin 10.2 g/dL (14.0-18.0); Mean Corpuscular Hemoglobin 30.5 pg (25-34); Mean Corpuscular Hgb Conc 33.2 g/dL (32-36); Mean Corpuscular Volume 91.9 fL (80-100); Mean Platelet Volume 10.7 fL (7.4-10.4); Platelet Count 183 K/uL (130-400); RDW Coefficient of Variation 14.1 % (11.5-14.5); RDW Standard Deviation 47.3 fL (36.4-46.3); Red Blood Count 3.34 M/uL (4.7-6.1); White Blood Count 10.53 K/uL (4.8-10.8)
[2019-06-22 06:17] LABS: BUN Creatinine Ratio 11.7 (10-20); Calcium 8.7 mg/dl (8.5-10.1); Est GFR (African American) 17.3; Est GFR (Non-African American) 14.9; Potassium 4.6 mmol/L (3.5-5.1)
[2019-06-22] MEDS: INSULIN ASPART 100 UNITS/ML 3 ML PEN SC SCH ×4 (08:21→21:16)
--- NOTE | 2019-06-22 09:57 | Hospitalist Progress Note ---
Date of Service June 22, 2019 Assessment & Plan (1) NSTEMI (non-ST elevated myocardial infarction): Has had heparin drip which was discontinued yesterday Medical management has been contemplated No cardiac cath(was planning to have it done at tertiary center) at this time likely to be going home this afternoon Appreciate cardiology input. (2) CAD (coronary artery disease): cont med management with current regimen. Denies any cardiac symptoms We will continue aspirin, Plavix, atenolol, amlodipine, hydralazine, isosorbide mononitrate and simvastatin (3) DM type 2 (diabetes mellitus, type 2): At goal inpatient, but received message from glycemic nurse educator that he prefers to have his blood sugar around 120 to feel right. Carb coverage was eliminated for now and continued with correction factor only. A1C is 6.2 and he has not been requiring much insulin at all during his stay so far. (4) HTN (hypertension): -BP intermittently elevated, likely situational -Continue home doses of amlodipine, losartan, atenolol (5) CKD (chronic kidney disease), stage IV: - baseline creat runs in the mid 2s, slightly higher around 3.2 today. - continue to monitor, avoid nephrotoxic agents when able (6) Anemia: Around his baseline, prob multifactorial including anemia of chronic disease/inflammation, phlebotomy while hospitalized and anemia from CKD. (7) DVT prophylaxis: -On IV heparin Full Code Dispo-to home when medically stable. Magdalene Min DO [facility] Hospitalist (8) Diarrhea: Has been complaining of profuse diarrhea with occasional blood in the stool The blood is likely secondary to hemorrhoids Denies any abdominal pain We will send stool for C. difficile and culture If diarrhea is controlled likely to be going home this afternoon Admission and Anticipated Discharge Date Admission Date: June 19, 2019 Anticipated date of discharge: 06/23/19 Subjective The patient was seen and examined in telemetry unit He has been complaining of diarrhea and some blood in stool Denies any other symptoms Denies any chest pain and/or palpitation, any abdominal pain and/or nausea and or vomiting Review of Systems Review of Systems: All systems reviewed and are unremarkable except as noted below Gastrointestinal: + diarrhea/loose stools and + blood in stools; no abdominal pain Physical Exam Physical Exam: No apparent distress at rest Constitutional: well developed and well nourished; no acute distress and not ill appearing Eyes: PERRL, conjunctivae normal, anicteric sclerae ENMT: external ear and nose normal, oropharynx normal Neck: trachea midline, no thyromegaly Respiratory: normal respiratory effort Auscultation: lungs clear to auscultation bilaterally Cardiovascular: Rate/Rhythm: regular rate and regular rhythm Heart Sounds: + murmur (2/6 ejection systolic murmur over precordium) Gastrointestinal (Abdomen): Inspection/Auscultation: abdomen normal to inspection and normal bowel sounds; abdomen not distended Percussion/Palpation: abdomen soft; abdomen nontender Musculoskeletal: No acute arthritis in any joints Neurologic: Alert, awake and oriented x3 Lymphatic: no cervical or axillary lymphadenopathy Results & Data ([facility]) Vital Signs (Past 12 Hours) Vital Signs Temp Pulse Resp BP Pulse Ox 06/22/19 08:00 36.4 C L 62 18 155/69 H 95 06/22/19 03:13 36.4 C L 61 16 159/66 H 95 06/21/19 22:54 36.8 C 69 16 138/64 96 Laboratory Results Short CBC 06/22/19 Range/Units 05:20 WBC 10.53 (4.8-10.8) K/uL Hgb 10.2 L (14.0-18.0) g/dL Hct 30.7 L (42-52) % Plt Count 183 (130-400) K/uL BMP 06/22/19 05:20 Sodium 135 L Potassium 4.6 Chloride 107 Carbon Dioxide 21 BUN 43 H Creatinine 3.67 H D Glucose 151 H Calcium 8.7 Medications Administered Current Inpatient Medications Acetaminophen (Tylenol) 650 mg PO Q4H PRN PRN Reason: Pain or Fever Stop: 07/19/19 19:43 Allopurinol (Zyloprim) 200 mg PO DAILY [facility] Stop: 07/20/19 08:59 Last Admin: 06/21/19 08:46 Dose: 200 mg Documented by: Amlodipine Besylate (Norvasc) 5 mg PO BID [facility] Stop: 07/19/19 20:59 Last Admin: 06/21/19 20:59 Dose: 5 mg Documented by: Aspirin (Ecotrin Ectab) 81 mg PO DAILY [facility] Stop: 07/20/19 08:59 Last Admin: 06/21/19 08:46 Dose: 81 mg Documented by: Atenolol (Tenormin) 25 mg PO DAILY [facility] Stop: 07/20/19 08:59 Last Admin: 06/21/19 08:54 Dose: Not Given Documented by: Clopidogrel Bisulfate (Plavix) 75 mg PO QAM [facility] Stop: 07/20/19 08:59 Last Admin: 06/21/19 08:45 Dose: 75 mg Documented by: Cyanocobalamin (Vitamin B-12) 1,000 mcg PO DAILY [facility] Stop: 07/20/19 08:59 Last Admin: 06/21/19 08:46 Dose: 1,000 mcg Documented by: Dextrose (Dextrose 50%) 25 - 50 ml IV UD PRN; Protocol PRN Reason: Hypoglycemia Protocol Stop: 07/19/19 19:43 Gabapentin (Neurontin) 600 mg PO DAILY [facility] Stop: 07/20/19 08:59 Last Admin: 06/21/19 08:45 Dose: 600 mg Documented by: Glucagon (Glucagen) 1 mg SQ UD PRN; Protocol PRN Reason: Hypoglycemia Protocol Stop: 07/19/19 19:43 Glucose (Dex4 Glucose) 4 - 8 tabs PO UD PRN; Protocol PRN Reason: Hypoglycemia Protocol Stop: 07/19/19 19:43 Glucose (Glucose 40%) 15 - 30 gm PO UD PRN; Protocol PRN Reason: Hypoglycemia Protocol Stop: 07/19/19 19:43 Hydralazine HCl (Apresoline) 10 mg PO TID [facility] Stop: 07/19/19 22:54 Last Admin: 06/21/19 20:59 Dose: 10 mg Documented by: Hydromorphone HCl (Dilaudid) 0.5 mg IV Q3H PRN PRN Reason: Pain Stop: 07/03/19 22:33 Last Admin: 06/20/19 21:35 Dose: 0.5 mg Documented by: Insulin Aspart (Novolog Flexpen) 0 units SC ACHS [facility] Stop: 07/19/19 20:59 Last Admin: 06/22/19 08:21 Dose: Not Given Documented by: Isosorbide Mononitrate (Imdur Extended Rel) 120 mg PO QAM [facility] Stop: 07/21/19 08:59 Last Admin: 06/21/19 08:45 Dose: 120 mg Documented by: Magnesium Chloride (Slow-Mag) 128 mg PO DAILY [facility] Stop: 07/20/19 08:59 Last Admin: 06/21/19 08:46 Dose: 128 mg Documented by: Miscellaneous (Carbohydrates For Hypoglycemia) 15 - 30 gm PO UD PRN PRN Reason: Hypoglycemia Protocol Stop: 07/19/19 19:43 Nitroglycerin (Nitrostat) 0.4 mg SL PRN PRN PRN Reason: Chest Pain Stop: 07/20/19 16:10 Pantoprazole Sodium (Protonix) 40 mg PO BID [facility] Stop: 07/19/19 20:59 Last Admin: 06/21/19 20:59 Dose: 40 mg Documented by: Ropinirole HCl (Requip) 2 mg PO HS [facility] Stop: 07/19/19 20:59 Last Admin: 06/21/19 20:59 Dose: 2 mg Documented by: Simvastatin (Zocor) 20 mg PO HS [facility] Stop: 07/19/19 20:59 Last Admin: 06/21/19 21:00 Dose: 20 mg Documented by: Tramadol HCl (Ultram) 25 - 50 mg PO Q4H PRN PRN Reason: Pain Stop: 07/19/19 22:33 Vitamin D (Vitamin D3) 2,000 units PO DAILY [facility] Stop: 07/20/19 08:59 Last Admin: 06/21/19 08:45 Dose: 2,000 units Documented by: (1) CAD (coronary artery disease) Associated angina: with unstable angina Coronary Disease-Associated Artery/Lesion type: unspecified vessel or lesion type [place] vs. transplanted heart: [place] heart Qualified Code(s): I25.110 - Atherosclerotic heart disease of [place] coronary artery with unstable angina pectoris
[2019-06-22] MEDS: allopurinoL 100 MG TAB PO SCH (10:59)
[2019-06-22] MEDS: ISOSORBIDE MONO EXTENDED REL 60 MG TABCR PO SCH (10:59)
[2019-06-22] MEDS: MAGNESIUM CHLORIDE 64MG DELAYED REL TAB PO SCH (10:59)
[2019-06-22] MEDS: ASPIRIN 81 MG ECTAB PO SCH (10:59)
[2019-06-22] MEDS: GABAPENTIN 600 MG TAB PO SCH (11:00)
[2019-06-22] MEDS: CHOLECALCIFEROL 1,000 UNITS 25 MCG TAB PO SCH (11:00)
[2019-06-22] MEDS: CYANOCOBALAMIN 500 MCG TABLET (VITAMIN B-12) PO SCH (11:00)
[2019-06-22] MEDS: HydrALAZINE 10 MG TAB PO SCH ×2 (11:00→13:06)
[2019-06-22] MEDS: PANTOprazole 40 MG TAB PO SCH ×2 (11:00→21:15)
[2019-06-22] MEDS: AMLODIPINE BESYLATE 5 MG TAB PO SCH ×2 (11:01→21:15)
[2019-06-22] MEDS: ATENOLOL 25 MG TABLET PO SCH (11:01)
[2019-06-22] MEDS: CLOPIDOGREL BISULFATE 75 MG TAB PO SCH (11:01)
--- NOTE | 2019-06-22 12:25 | Cardiology Progress Note ---
Date of Service June 22, 2019 Assessment & Plan (1) NSTEMI (non-ST elevated myocardial infarction): Problem list: 1. Non-ST segment elevation myocardial infarction presenting with symptoms of classic angina, mild troponin elevation, no significant EKG changes, chronic right bundle branch block 2. Stable moderate aortic valve stenosis 3. Stage IV chronic kidney disease, with KRIS noted today, typical creatinine in the range of 2.6-2.9, up to 3.67 today 06/22/2019 4. Bloody diarrhea overnight. Recommendations: Heparin has been discontinued. He is on chronic dual antiplatelet therapy with aspirin and clopidogrel with which she was treated prior to this hospital stay. Given his worsening creatinine, recommend gentle IV fluids, 500 mL of normal saline. Patient is free of angina, and he is eager for discharge. As noted, he has a history of complex coronary heart disease with additional bypass surgery approximately 25 years ago. The gastroepiploic graft to the RCA territory was noted to be threatened on cardiac catheterization performed 10 years ago, however medication management was pursued at that time due to concerns of the complexity of the procedure and risks of losing circulation to his liver and inferior wall if complication would have occurred. 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 Proceeding with ongoing medication management, due to procedure risk, especially given his renal insufficiency. Subjective Chief complaint: Follow-up chest discomfort, shortness of breath Subjective: Patient feels well from the chest pain and shortness of breath standpoint. Heparin was discontinued yesterday 06/21/2019 at 1700: He developed multiple episodes of diarrhea overnight, with appearance of bloody mucus. Hemoglobin this morning is stable at 10.2. Platelet count is stable. Telemetry reveals sinus rhythm at 50 to 60 bpm. Review of Systems Review of Systems: All systems reviewed & are unremarkable except as noted in HPI & below Physical Exam Physical Exam: Temp Pulse Resp BP Pulse Ox 36.6 C 69 20 156/79 H 95 06/22/19 11:57 06/22/19 11:57 06/22/19 11:57 06/22/19 11:57 06/22/19 11:57 Constitutional: WD/WN, vitals as above Respiratory: normal respiratory effort, lungs clear to auscultation Cardiovascular: Rate/Rhythm: regular rhythm Heart Sounds: + murmur (II/ systolic murmur) Vessels: no JVD Extremities: no edema Gastrointestinal (Abdomen): normal bowel sounds, soft, nontender, no hepatosplenomegaly Neurologic: PERRL, EOMI, accommodation nl, no face palsy, no dysarthria Results & Data Vital Signs (Past 12 Hours) Vital Signs Temp Pulse Pulse Resp BP Pulse Ox 06/22/19 11:57 36.6 C 69 20 156/79 H 95 06/22/19 10:03 56 L 06/22/19 08:00 36.4 C L 62 18 155/69 H 95 06/22/19 03:13 36.4 C L 61 16 159/66 H 95 Laboratory Results Coagulation 06/21/19 Range/Units 12:54 APTT 59.2 H* (21.0-31.0) Seconds CBC 06/22/19 Range/Units 05:20 WBC 10.53 (4.8-10.8) K/uL RBC 3.34 L (4.7-6.1) M/uL Hgb 10.2 L (14.0-18.0) g/dL Hct 30.7 L (42-52) % Plt Count 183 (130-400) K/uL Comprehensive Metabolic Panel 06/22/19 Range/Units 05:20 Sodium 135 L (136-145) mmol/L Potassium 4.6 (3.5-5.1) mmol/L Chloride 107 (98-107) mmol/L Carbon Dioxide 21 (21-32) mmol/L BUN 43 H (7-18) mg/dl Creatinine 3.67 H D (0.6-1.4) mg/dl Glucose 151 H (70-99) mg/dl Calcium 8.7 (8.5-10.1) mg/dl Intake and Output 06/21/19 06/22/19 06/22/19 22:59 06:59 14:59 Intake Total 258 / 983.75 250 / 983.75 Balance 258 / 983.75 250 / 983.75 Intake: IV 58 / 158.75 HEPARIN SODIUM/DEXTROSE 25,000 58 / 158.75 units In 500 ml @ 900 UNITS/HR 18 mls/hr IV .Q24H [facility] Rx#: [id number] Oral 200 / 825 250 / 825 Other: # Unmeasured Voids 2 Weight 68.2 kg
[2019-06-22] MEDS ORDERED: SODIUM CHLORIDE 0.9% 500 ML IV SCH (12:45)
[2019-06-22] MEDS ORDERED: LOPERAMIDE HCL 2 MG CAP PO PRN (14:26)
[2019-06-22] MEDS: NITROGLYCERIN SL 0.4 MG/TAB TAB SL PRN ×2 (19:13→19:17)
[2019-06-22 21:04] LABS: Hematocrit (blood only) 29.5 % (42-52); Hemoglobin 9.9 g/dL (14.0-18.0)
[2019-06-22 21:13] LABS: Partial Thromboplastin Ratio 1.1; Partial Thromboplastin Time 30.5 Seconds (21.0-31.0)
[2019-06-22] MEDS: ROPINIROLE HCL 1 MG TABLET PO SCH (21:15)
[2019-06-22] MEDS: SIMVASTATIN 20 MG TAB PO SCH (21:16)
--- NOTE | 2019-06-22 22:19 | Electrocardiogram Report ---
Test Reason : Blood Pressure : / mmHG Vent. Rate : 059 BPM Atrial Rate : 059 BPM P-R Int : 204 ms QRS Dur : 124 ms QT Int : 446 ms P-R-T Axes : 034 089 070 degrees QTc Int : 441 ms Sinus bradycardia Right bundle branch block Abnormal ECG When compared with ECG of 20-JUN-2019 08:05, No significant change was found Confirmed by Dane Laureano ([id number]) on 06/22/2019 10:18:57 PM Referred By: REFERRED SELF Confirmed By:Dane Laureano
[2019-06-23 05:49] LABS: Basophils # (auto) 0.03 K/uL (0-0.2); Basophils % (auto) 0.3 %; Eosinophils # (auto) 0.18 K/uL (0-0.5); Hematocrit (blood only) 27.7 % (42-52); Hemoglobin 9.4 g/dL (14.0-18.0); Immature Granulocytes # (auto) 0.03 K/uL (0.00-0.02); Immature Granulocytes % (auto) 0.3 %; Lymphocytes # (auto) 1.61 K/uL (1.2-3.4); Lymphocytes % (auto) 18.1 %; Mean Corpuscular Hemoglobin 30.8 pg (25-34); Mean Corpuscular Hgb Conc 33.9 g/dL (32-36); Mean Corpuscular Volume 90.8 fL (80-100); Mean Platelet Volume 10.8 fL (7.4-10.4); Monocytes # (auto) 0.69 K/uL (0.11-0.59); Monocytes % (auto) 7.8 %; Neutrophils # (auto) 6.36 K/uL (1.4-6.5); Neutrophils % (auto) 71.5 %; Platelet Count 149 K/uL (130-400); RDW Coefficient of Variation 14.3 % (11.5-14.5); RDW Standard Deviation 47.1 fL (36.4-46.3); Red Blood Count 3.05 M/uL (4.7-6.1)
[2019-06-23 06:20] LABS: BUN Creatinine Ratio 12.2 (10-20); Calcium 8.3 mg/dl (8.5-10.1); Creatinine Clr Calc Pharmacy 14.6 ml/min; Est GFR (African American) 16.7; Est GFR (Non-African American) 14.4; Magnesium 1.5 mg/dl (1.8-2.4); Potassium 4.3 mmol/L (3.5-5.1)
[2019-06-23 06:25] LABS: Troponin I 0.039 ng/ml (0-0.045)
[2019-06-23] MEDS: MAGNESIUM SULFATE / D5W 1 GM/100 ML BAG IV SCH ×2 (08:17→09:26)
[2019-06-23] MEDS: INSULIN ASPART 100 UNITS/ML 3 ML PEN SC SCH ×2 (08:18→12:10)
[2019-06-23] MEDS: ISOSORBIDE MONO EXTENDED REL 60 MG TABCR PO SCH (08:22)
[2019-06-23] MEDS: AMLODIPINE BESYLATE 5 MG TAB PO SCH (08:22)
[2019-06-23] MEDS: CLOPIDOGREL BISULFATE 75 MG TAB PO SCH (08:23)
[2019-06-23] MEDS: ATENOLOL 25 MG TABLET PO SCH (08:23)
[2019-06-23] MEDS: CHOLECALCIFEROL 1,000 UNITS 25 MCG TAB PO SCH (08:23)
[2019-06-23] MEDS: ASPIRIN 81 MG ECTAB PO SCH (08:23)
[2019-06-23] MEDS: PANTOprazole 40 MG TAB PO SCH (08:23)
[2019-06-23] MEDS: MAGNESIUM CHLORIDE 64MG DELAYED REL TAB PO SCH (08:23)
[2019-06-23] MEDS: CYANOCOBALAMIN 500 MCG TABLET (VITAMIN B-12) PO SCH (08:23)
[2019-06-23] MEDS: GABAPENTIN 600 MG TAB PO SCH (08:23)
[2019-06-23] MEDS: allopurinoL 100 MG TAB PO SCH (08:24)
[2019-06-23] MEDS ORDERED: MAGNESIUM SULFATE / D5W 1 GM/100 ML BAG IV SCH (09:30)
--- NOTE | 2019-06-23 11:55 | Hospitalist Progress Note ---
Date of Service June 23, 2019 Assessment & Plan (1) NSTEMI (non-ST elevated myocardial infarction): Has had heparin drip which was discontinued yesterday Medical management has been contemplated No cardiac cath(was planning to have it done at tertiary center) at this time likely to be going home this afternoon Appreciate cardiology input. Clinically stable to be discharged today Follow-up with cardiology within 2 to 4 weeks (2) CAD (coronary artery disease): cont med management with current regimen. Denies any cardiac symptoms We will continue aspirin, Plavix, atenolol, amlodipine, hydralazine, isosorbide mononitrate and simvastatin No more chest pain (3) DM type 2 (diabetes mellitus, type 2): At goal inpatient, but received message from glycemic nurse educator that he prefers to have his blood sugar around 120 to feel right. Carb coverage was eliminated for now and continued with correction factor only. A1C is 6.2 and he has not been requiring much insulin at all during his stay so far. (4) HTN (hypertension): -BP intermittently elevated, likely situational -Continue home doses of amlodipine, atenolol -Losartan will be on hold until the kidney function improves (5) CKD (chronic kidney disease), stage IV: - baseline creat runs in the mid 2s, slightly higher around 3.2 today. - continue to monitor, avoid nephrotoxic agents when able -Creatinine is 3.77 today -We will hold losartan for now (6) Anemia: Around his baseline, prob multifactorial including anemia of chronic disease/inflammation, phlebotomy while hospitalized and anemia from CKD. (7) DVT prophylaxis: -On IV heparin Full Code Dispo-to home when medically stable. (8) Diarrhea: Has been complaining of profuse diarrhea with occasional blood in the stool The blood is likely secondary to hemorrhoids Denies any abdominal pain We will send stool for C. difficile and culture If diarrhea is controlled likely to be going home this afternoon Diarrhea is controlled and no more blood in the stool He will be discharged this afternoon Admission and Anticipated Discharge Date Admission Date: June 19, 2019 Anticipated date of discharge: 06/23/19 Subjective The patient was seen and examined in telemetry unit He has been complaining of diarrhea and some blood in stool Denies any other symptoms Denies any chest pain and/or palpitation, any abdominal pain and/or nausea and or vomiting 06/23/2019 The patient was seen and examined in telemetry unit He has been feeling a lot better and denies any chest pain and/or palpitation or shortness of breath His diarrhea is controlled and does not have any more blood in the stool Review of Systems Review of Systems: All systems reviewed and are unremarkable except as noted below Gastrointestinal: no abdominal pain, no diarrhea/loose stools and no blood in stools Physical Exam Physical Exam: No apparent distress at rest Constitutional: well developed and well nourished; no acute distress and not ill appearing Eyes: PERRL, conjunctivae normal, anicteric sclerae ENMT: external ear and nose normal, oropharynx normal Neck: trachea midline, no thyromegaly Respiratory: normal respiratory effort Auscultation: lungs clear to auscultation bilaterally Cardiovascular: Rate/Rhythm: regular rate and regular rhythm Heart Sounds: + murmur (2/6 ejection systolic murmur over precordium) Gastrointestinal (Abdomen): Inspection/Auscultation: abdomen normal to inspection and normal bowel sounds; abdomen not distended Percussion/Palpation: abdomen soft; abdomen nontender Musculoskeletal: No acute arthritis in any joints Lymphatic: no cervical or axillary lymphadenopathy Results & Data ([facility]) Vital Signs (Past 12 Hours) Vital Signs Temp Pulse Pulse Resp BP BP Pulse Ox 06/23/19 11:22 37.0 C 68 19 138/64 96 06/23/19 08:08 37.2 C 73 18 134/74 99 06/23/19 08:06 57 L 06/23/19 04:08 37.1 C 65 16 133/50 L 94 06/23/19 00:33 60 Laboratory Results Short CBC 06/22/19 06/23/19 Range/Units 20:34 05:31 WBC 8.90 (4.8-10.8) K/uL Hgb 9.9 L 9.4 L (14.0-18.0) g/dL Hct 29.5 L 27.7 L (42-52) % Plt Count 149 (130-400) K/uL BMP 06/23/19 05:31 Sodium 136 Potassium 4.3 Chloride 110 H Carbon Dioxide 19 L BUN 46 H Creatinine 3.77 H Glucose 135 H Calcium 8.3 L Cardiac Enzymes 06/22/19 06/23/19 Range/Units 20:34 05:31 Troponin I 0.016 0.039 (0-0.045) ng/ml Medications Administered Current Inpatient Medications Acetaminophen (Tylenol) 650 mg PO Q4H PRN PRN Reason: Pain or Fever Stop: 07/19/19 19:43 Allopurinol (Zyloprim) 200 mg PO DAILY [facility] Stop: 07/20/19 08:59 Last Admin: 06/23/19 08:24 Dose: 200 mg Documented by: Amlodipine Besylate (Norvasc) 5 mg PO BID [facility] Stop: 07/19/19 20:59 Last Admin: 06/23/19 08:22 Dose: 5 mg Documented by: Aspirin (Ecotrin Ectab) 81 mg PO DAILY [facility] Stop: 07/20/19 08:59 Last Admin: 06/23/19 08:23 Dose: 81 mg Documented by: Atenolol (Tenormin) 25 mg PO DAILY [facility] Stop: 07/20/19 08:59 Last Admin: 06/23/19 08:23 Dose: 25 mg Documented by: Clopidogrel Bisulfate (Plavix) 75 mg PO QAM [facility] Stop: 07/20/19 08:59 Last Admin: 06/23/19 08:23 Dose: 75 mg Documented by: Cyanocobalamin (Vitamin B-12) 1,000 mcg PO DAILY [facility] Stop: 07/20/19 08:59 Last Admin: 06/23/19 08:23 Dose: 1,000 mcg Documented by: Dextrose (Dextrose 50%) 25 - 50 ml IV UD PRN; Protocol PRN Reason: Hypoglycemia Protocol Stop: 07/19/19 19:43 Gabapentin (Neurontin) 600 mg PO DAILY [facility] Stop: 07/20/19 08:59 Last Admin: 06/23/19 08:23 Dose: 600 mg Documented by: Glucagon (Glucagen) 1 mg SQ UD PRN; Protocol PRN Reason: Hypoglycemia Protocol Stop: 07/19/19 19:43 Glucose (Dex4 Glucose) 4 - 8 tabs PO UD PRN; Protocol PRN Reason: Hypoglycemia Protocol Stop: 07/19/19 19:43 Glucose (Glucose 40%) 15 - 30 gm PO UD PRN; Protocol PRN Reason: Hypoglycemia Protocol Stop: 07/19/19 19:43 Hydralazine HCl (Apresoline) 25 mg PO TID [facility] Stop: 07/22/19 20:29 Last Admin: 06/23/19 08:22 Dose: 25 mg Documented by: Hydromorphone HCl (Dilaudid) 0.5 mg IV Q3H PRN PRN Reason: Pain Stop: 07/03/19 22:33 Last Admin: 06/20/19 21:35 Dose: 0.5 mg Documented by: Insulin Aspart (Novolog Flexpen) 0 units SC ACHS [facility] Stop: 07/19/19 20:59 Last Admin: 06/23/19 08:18 Dose: Not Given Documented by: Isosorbide Mononitrate (Imdur Extended Rel) 120 mg PO QAM [facility] Stop: 07/21/19 08:59 Last Admin: 06/23/19 08:22 Dose: 120 mg Documented by: Loperamide HCl (Imodium) 2 mg PO Q4H PRN PRN Reason: Diarrhea Stop: 07/22/19 14:29 Magnesium Chloride (Slow-Mag) 128 mg PO DAILY [facility] Stop: 07/20/19 08:59 Last Admin: 06/23/19 08:23 Dose: 128 mg Documented by: Miscellaneous (Carbohydrates For Hypoglycemia) 15 - 30 gm PO UD PRN PRN Reason: Hypoglycemia Protocol Stop: 07/19/19 19:43 Nitroglycerin (Nitrostat) 0.4 mg SL PRN PRN PRN Reason: Chest Pain Stop: 07/20/19 16:10 Last Admin: 06/22/19 19:17 Dose: 0.4 mg Documented by: Pantoprazole Sodium (Protonix) 40 mg PO BID [facility] Stop: 07/19/19 20:59 Last Admin: 06/23/19 08:23 Dose: 40 mg Documented by: Ropinirole HCl (Requip) 2 mg PO HS [facility] Stop: 07/19/19 20:59 Last Admin: 06/22/19 21:15 Dose: 2 mg Documented by: Simvastatin (Zocor) 20 mg PO HS [facility] Stop: 07/19/19 20:59 Last Admin: 06/22/19 21:16 Dose: 20 mg Documented by: Tramadol HCl (Ultram) 25 - 50 mg PO Q4H PRN PRN Reason: Pain Stop: 07/19/19 22:33 Vitamin D (Vitamin D3) 2,000 units PO DAILY [facility] Stop: 07/20/19 08:59 Last Admin: 06/23/19 08:23 Dose: 2,000 units Documented by: (1) CAD (coronary artery disease) Associated angina: with unstable angina Coronary Disease-Associated Artery/Lesion type: unspecified vessel or lesion type [place] vs. transplanted heart: habemat[place] heart Qualified Code(s): I25.110 - Atherosclerotic heart disease of [place] coronary artery with unstable angina pectoris
--- NOTE | 2019-06-23 22:01 | Electrocardiogram Report ---
Test Reason : Blood Pressure : / mmHG Vent. Rate : 081 BPM Atrial Rate : 081 BPM P-R Int : 190 ms QRS Dur : 134 ms QT Int : 396 ms P-R-T Axes : 060 077 -56 degrees QTc Int : 460 ms Sinus rhythm with frequent Premature ventricular complexes Right bundle branch block T wave abnormality, consider inferolateral ischemia Abnormal ECG When compared with ECG of 21-JUN-2019 07:40, Premature ventricular complexes are now Present ST now depressed in Anterolateral leads T wave inversion now evident in Inferolateral leads Confirmed by Dane Laureano ([id number]) on 06/23/2019 10:01:13 PM Referred By: REFERRED SELF Confirmed By:Dane Laureano
--- NOTE | 2019-06-24 08:17 | Discharge Summary ---
Date of Service June 24, 2019 Admission HPI Per Admitting Provider 78-year-old male who presents the ED for evaluation of chest pain. Patient reports history of chronic angina however reports worsening episodes of chest pain over the past 1 week. Patient reports having multiple episodes of chest pain per day. There does not seem to be any rhyme or reason to his episode of chest pain. Sometimes they occur at rest, other times with exertion. Patient reports associated shortness of breath and nausea. No diaphoresis, lightheadedness, dizziness, syncopal event. Patient reports the pain is located in the middle of his chest and sometimes has radiation into both shoulders. Brian cribes the pain as sharp. Patient denies lower extremity edema and orthopnea. No other recent illnesses, fevers, chills. Denies abdominal pain, vomiting, diarrhea. No urinary symptoms. In the ED, EKG shows unchanged right bundle branch block, troponin mildly elevated 0.065. Patient is hemodynamically stable. He was given 1 sublingual nitroglycerin with resolution of his chest pain for about 10 minutes. He was then given IV morphine and IV Zofran. He also received a full dose aspirin. Admission Exam Per Admitting Provider Constitutional: WD/WN, vitals as above Eyes: PERRL, conjunctivae normal, anicteric sclerae ENMT: external ear and nose normal, oropharynx normal Respiratory: normal respiratory effort, lungs clear to auscultation Cardiovascular: Rate/Rhythm: regular rate and regular rhythm Heart Sounds: + murmur (Systolic, grade 4/6) Vessels: normal peripheral pulses Extremities: no edema Gastrointestinal (Abdomen): normal bowel sounds, soft, nontender, no hepatosplenomegaly Musculoskeletal: no cyanosis or clubbing, extremities motor strength 5/5 Skin: no rashes, warm and dry Neurologic: PERRL, EOMI, accommodation nl, no face palsy, no dysarthria Psychiatric: A+Ox3, euthymic affect Principal Diagnosis NSTEMI, 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 years ago, moderate aortic valve stenosis, diabetes type 2, CKD stage IV Discharge Exam Constitutional well developed and well nourished; no acute distress and not ill appearing Eyes PERRL, conjunctivae normal, anicteric sclerae ENMT external ear and nose normal, oropharynx normal Neck trachea midline, no thyromegaly Respiratory normal respiratory effort Auscultation: lungs clear to auscultation bilaterally Cardiovascular Rate/Rhythm: regular rate and regular rhythm Heart Sounds: + murmur (2/6 ejection systolic murmur over precordium) Gastrointestinal (Abdomen) Inspection/Auscultation: abdomen normal to inspection and normal bowel sounds; abdomen not distended Percussion/Palpation: abdomen soft; abdomen nontender Lymphatic no cervical or axillary lymphadenopathy Discharge Data Allergies Allergy/AdvReac Type Severity Reaction Status Date / Time No Known Allergies Allergy Unverified 06/19/19 15:29 Consultations 06/19/19 15:54 ED Decision to Admit Stat 06/19/19 19:44 Consult Cardiology Routine Hospital Course (1) NSTEMI (non-ST elevated myocardial infarction): Has had heparin drip which was discontinued yesterday Medical management has been contemplated No cardiac cath(was planning to have it done at tertiary center) at this time likely to be going home this afternoon Appreciate cardiology input. Clinically stable to be discharged today Follow-up with cardiology within 2 to 4 weeks (2) CAD (coronary artery disease): cont med management with current regimen. Denies any cardiac symptoms We will continue aspirin, Plavix, atenolol, amlodipine, hydralazine, isosorbide mononitrate and simvastatin No more chest pain (3) DM type 2 (diabetes mellitus, type 2): At goal inpatient, but received message from glycemic nurse educator that he prefers to have his blood sugar around 120 to feel right. Carb coverage was eliminated for now and continued with correction factor only. A1C is 6.2 and he has not been requiring much insulin at all during his stay so far. (4) HTN (hypertension): -BP intermittently elevated, likely situational -Continue home doses of amlodipine, atenolol -Losartan will be on hold until the kidney function improves (5) CKD (chronic kidney disease), stage IV: - baseline creat runs in the mid 2s, slightly higher around 3.2 today. - continue to monitor, avoid nephrotoxic agents when able -Creatinine is 3.77 today -We will hold losartan for now (6) Anemia: Around his baseline, prob multifactorial including anemia of chronic disease/inflammation, phlebotomy while hospitalized and anemia from CKD. (7) DVT prophylaxis: -On IV heparin Full Code Dispo-to home when medically stable. (8) Diarrhea: Has been complaining of profuse diarrhea with occasional blood in the stool The blood is likely secondary to hemorrhoids Denies any abdominal pain We will send stool for C. difficile and culture If diarrhea is controlled likely to be going home this afternoon Diarrhea is controlled and no more blood in the stool He will be discharged this afternoon Total Time Total Time Spent Total Time Spent (In Minutes): 35 minutes Total Time Includes: Examination of the Patient, Discharge Planning, Medication Reconciliation and Communication With Other Providers Discharge Plan Discharge Items Patient Disposition: Home - Self-Care Reason For Visit: CHEST PAIN Discharge Diagnosis: NSTEMI, 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 years ago, moderate aortic valve stenosis, diabetes type 2, CKD stage IV Condition on Discharge: Fair Activity: Resume your previous activity Non-emergency contact: Primary Care Provider Call non-emergency contact if: you have any medication questions and your symptoms worsen Follow-up/Referrals: Angel Gonzalez MD [Primary Care Provider] - 06/29/19 9:00 am (Your appointment with cardiology is on 07 July at 2:45 PM with Kasey Wing) Diet: Carb Consistent or DM2 and Heart Healthy Addtl Attending Provider Instructions: Your losartan has been on hold Try to drink more fluid but not more than 1800 mL in 24 hours Pending Studies at Discharge: No Stand-Alone Forms: [employer], Smoking Cessation Medications and DC Order Prescriptions: New hydralazine 25 mg Tablet 25 mg PO TID 30 Days Qty: 90 RF: 0 nitroglycerin [Nitrostat] 0.4 mg Tablet, Sublingual 0.4 mg sublingual PRN PRN (Reason: chest pain) 30 Days Qty: 25 RF: 0 Continued gabapentin [Neurontin] 600 mg tablet 600 mg PO DAILY RF: 0 glipizide [Glucotrol XL] 5 mg tablet extended release 24hr 5 mg PO DAILY RF: 0 clopidogrel [Plavix] 75 mg tablet 75 mg PO QAM RF: 0 allopurinol [Zyloprim] 100 mg tablet 200 mg PO DAILY RF: 0 isosorbide mononitrate 60 mg tablet extended release 24 hr 120 mg PO QAM RF: 0 amlodipine [Norvasc] 10 mg tablet 5 mg PO BID RF: 0 ropinirole 2 mg tablet 2 mg PO HS RF: 0 simvastatin [Zocor] 20 mg tablet 20 mg PO HS RF: 0 omeprazole 20 mg capsule,delayed release(DR/EC) 20 mg PO BID RF: 0 aspirin [Aspirin Childrens] 81 mg Tablet,Chewable 81 mg PO DAILY RF: 0 oxycodone [Roxicodone] 5 mg tablet 5 mg PO Q6H PRN (Reason: Pain) RF: 0 cholecalciferol (vitamin D3) 25 mcg (1,000 unit) Capsule 2,000 unit PO DAILY RF: 0 atenolol 25 mg tablet 25 mg PO DAILY RF: 0 cyanocobalamin (vitamin B-12) 1,000 mcg Tablet 1,000 mcg PO DAILY RF: 0 magnesium chloride [Mag 64] 64 mg Tablet,Delayed Release (Dr/Ec) 128 mg PO DAILY RF: 0 Discontinued losartan [Cozaar] 100 mg tablet 100 mg PO QAM RF: 0 Discharge Orders: Discharge Order (Routine); Ordered 06/23/19 Ordered By: Beto Bautista/Other Patient Handouts: Nitroglycerin sublingual tablets, Hydralazine tablets Admission Data Admit Date/Time: 06/19/19 16:08 Attending Provider: Beto Walker Admit Provider: Magdalene Min Primary Care Provider: Angel Gonzalez Other Providers: Magdalene Min ; Zeferino Gupta Other Interventions: Discharge Summary Assessment (RN) Last Done: 06/23/19 13:38 DC Date/Time DO NOT enter until pt leaves facility: 06/23/19 15:05
== END 2019-06-23 15:05 | disposition home or self-care (01) | DRG 281 ==
LOC: ED 13:45 → 2S 16:08 → SUATTDRO 16:08 → 2S 17:58